=== PATIENT | male | born 1950 | race Caucasian/White ===

== ENCOUNTER 2018-02-19 19:05 | Inpatient (IN) | payer MEDICARE, OTHER ==
[2018-02-19] MEDS ORDERED: NITROGLYCERIN OINT 1 INCH/GM PACKET TOPICAL STA (19:24)
[2018-02-19] MEDS ORDERED: ASPIRIN 81 MG PO STA (19:24)
--- NOTE | 2018-02-19 19:26 | ED ---
General Adult HPI - General Chief complaint: Chest Pain Stated complaint: chest pressure Time Seen by Provider: 02/19/18 19:17 Source: patient, RN notes reviewed Mode of arrival: wheelchair Limitations: no limitations - History of Present Illness Initial comments: Patient is a pleasant 67-year-old male presenting to the emergency department with complaints of chest pressure. Onset of symptoms was less than an hour prior to arrival. Symptoms have now near resolved. Discomfort described as pressure. Patient had some nausea in route to the hospital. No dyspnea or diaphoresis. No history of similar symptoms previously. Patient did have radiation to the left arm. - Related Data Home Medications Medication Instructions Recorded Confirmed Escitalopram [Lexapro] 20 mg PO DAILY 11/21/15 12/04/15 Fenofibrate 1 tab PO DAILY 11/21/15 12/04/15 Valsartan/Hydrochlorothiazide 1 tab PO DAILY 11/21/15 12/04/15 [Valsartan-Hctz 320-12.5 mg Tab] metFORMIN HCL [Glucophage] 500 mg PO BID 11/21/15 12/04/15 HYDROcodone/APAP 7.5-325MG [[place] 1 tab PO Q4H PRN 12/04/15 12/04/15 7.5] Previous Rx's Medication Instructions Recorded HYDROcodone/APAP 7.5-325MG [[place] 1 tab PO Q6HR PRN #20 tab 12/04/15 7.5-325] Allergies Allergy/AdvReac Type Severity Reaction Status Date / Time No Known Allergies Allergy Verified 02/19/18 19:08 Review of Systems ROS Statement: Those systems with pertinent positive or pertinent negative responses have been documented in the HPI. ROS Other: All systems not noted in ROS Statement are negative. Constitutional: Denies: fever Eyes: Denies: eye pain ENT: Denies: ear pain Respiratory: Denies: cough, dyspnea Cardiovascular: Reports: chest pain Endocrine: Denies: fatigue Gastrointestinal: Reports: nausea. Denies: abdominal pain Genitourinary: Denies: dysuria Musculoskeletal: Denies: back pain Skin: Denies: rash Neurological: Denies: weakness Past Medical History Past Medical History: Diabetes Mellitus, Hypertension Additional Past Medical History / Comment(s): PILONIDAL CYST History of Any Multi-Drug Resistant Organisms: None Reported Past Surgical History: Cholecystectomy Past Anesthesia/Blood Transfusion Reactions: No Reported Reaction, Motion Sickness Additional Past Anesthesia/Blood Transfusion Reaction / Comment(s): PT RECEIVED MULTIPLE BLOOD TRANSFUSIONS AN INFANT. Past Psychological History: No Psychological Hx Reported, Depression Smoking Status: Former smoker Past Alcohol Use History: Rare Past Drug Use History: None Reported - Past Family History Mother Family Medical History: No Reported History General Exam Limitations: no limitations General appearance: alert, in no apparent distress Head exam: Present: atraumatic Eye exam: Present: normal appearance, PERRL ENT exam: Present: normal oropharynx Neck exam: Present: normal inspection Respiratory exam: Present: normal lung sounds bilaterally. Absent: chest wall tenderness Cardiovascular Exam: Present: regular rate, normal rhythm Expanded Peripheral pulses: 2+: Radial (R), Radial (L), Posterior Tibialis (R), Posterior Tibialis (L) GI/Abdominal exam: Present: soft. Absent: tenderness Extremities exam: Present: normal inspection. Absent: pedal edema, calf tenderness Neurological exam: Present: alert Psychiatric exam: Present: normal affect, normal mood Skin exam: Present: normal color Course Vital Signs 02/19/18 02/19/18 02/19/18 19:08 19:32 20:22 Temperature 98.3 F Pulse Rate 71 36 L Pulse Rate [ 73 [employer] ] Respiratory 18 18 Rate Blood Pressure 161/105 173/81 O2 Sat by Pulse 98 98 Oximetry 02/19/18 20:52 Temperature Pulse Rate 37 L Pulse Rate [ [employer] ] Respiratory 18 Rate Blood Pressure 157/83 O2 Sat by Pulse 97 Oximetry EKG Findings - EKG Comments: EKG Findings:: Sinus rhythm at 64. For screening AV block with a [place] of 232. QRS 108. QT 416. QTC 429. Left axis. Normal QRS. No acute ST change Medical Decision Making - Medical Decision Making Patient reevaluated and resting comfortably in bed. Patient and family updated on results and plan. Dr. Pedro has been paged for admission for Dr. Archer. - Lab Data Result diagrams: 02/19/18 19:28 02/19/18 19:28 Lab Results 02/19/18 02/19/18 02/19/18 Range/Units 19:28 19:28 19:28 WBC 8.5 (3.8-10.6) k/uL RBC 5.19 (4.30-5.90) m/uL Hgb 15.4 (13.0-17.5) gm/dL Hct 46.7 (39.0-53.0) % MCV 90.1 (80.0-100.0) fL MCH 29.6 (25.0-35.0) pg MCHC 32.9 (31.0-37.0) g/dL RDW 14.2 (11.5-15.5) % Plt Count 287 (150-450) k/uL Neutrophils % 61 % Lymphocytes % 20 % Monocytes % 10 % Eosinophils % 5 % Basophils % 1 % Neutrophils # 5.2 (1.3-7.7) k/uL Lymphocytes # 1.7 (1.0-4.8) k/uL Monocytes # 0.8 (0-1.0) k/uL Eosinophils # 0.5 (0-0.7) k/uL Basophils # 0.1 (0-0.2) k/uL PT (9.0-12.0) sec INR (<1.2) APTT (22.0-30.0) sec Sodium 140 (137-145) mmol/L Potassium 4.3 (3.5-5.1) mmol/L Chloride 108 H (98-107) mmol/L Carbon Dioxide 23 (22-30) mmol/L Anion Gap 9 mmol/L BUN 20 (9-20) mg/dL Creatinine 1.10 (0.66-1.25) mg/dL Est GFR (CKD-EPI)AfAm 79 (>60 ml/min/1.73 sqM) Est GFR (CKD-EPI)NonAf 69 (>60 ml/min/1.73 sqM) Glucose 136 H (74-99) mg/dL Calcium 9.1 (8.4-10.2) mg/dL Magnesium 2.0 (1.6-2.3) mg/dL Total Bilirubin 0.4 (0.2-1.3) mg/dL AST 19 (17-59) U/L ALT 27 (21-72) U/L Alkaline Phosphatase 89 (38-126) U/L Total Creatine Kinase 76 (55-170) U/L CK-MB (CK-2) 0.9 (0.0-2.4) ng/mL CK-MB (CK-2) Rel Index 1.2 Troponin I <0.012 (0.000-0.034) ng/mL Total Protein 7.0 (6.3-8.2) g/dL Albumin 4.2 (3.5-5.0) g/dL 02/19/18 Range/Units 19:28 WBC (3.8-10.6) k/uL RBC (4.30-5.90) m/uL Hgb (13.0-17.5) gm/dL Hct (39.0-53.0) % MCV (80.0-100.0) fL MCH (25.0-35.0) pg MCHC (31.0-37.0) g/dL RDW (11.5-15.5) % Plt Count (150-450) k/uL Neutrophils % % Lymphocytes % % Monocytes % % Eosinophils % % Basophils % % Neutrophils # (1.3-7.7) k/uL Lymphocytes # (1.0-4.8) k/uL Monocytes # (0-1.0) k/uL Eosinophils # (0-0.7) k/uL Basophils # (0-0.2) k/uL PT 9.8 (9.0-12.0) sec INR 1.0 (<1.2) APTT 22.7 (22.0-30.0) sec Sodium (137-145) mmol/L Potassium (3.5-5.1) mmol/L Chloride (98-107) mmol/L Carbon Dioxide (22-30) mmol/L Anion Gap mmol/L BUN (9-20) mg/dL Creatinine (0.66-1.25) mg/dL Est GFR (CKD-EPI)AfAm (>60 ml/min/1.73 sqM) Est GFR (CKD-EPI)NonAf (>60 ml/min/1.73 sqM) Glucose (74-99) mg/dL Calcium (8.4-10.2) mg/dL Magnesium (1.6-2.3) mg/dL Total Bilirubin (0.2-1.3) mg/dL AST (17-59) U/L ALT (21-72) U/L Alkaline Phosphatase (38-126) U/L Total Creatine Kinase (55-170) U/L CK-MB (CK-2) (0.0-2.4) ng/mL CK-MB (CK-2) Rel Index Troponin I (0.000-0.034) ng/mL Total Protein (6.3-8.2) g/dL Albumin (3.5-5.0) g/dL - Radiology Data Radiology results: image reviewed (Chest x-ray shows no acute process.) Disposition Clinical Impression: Chest pain Disposition: ADMITTED IP TO THIS [facility] Referrals: Alex Archer DO [Primary Care Provider] - 1-2 days Decision Time: 21:51
[2018-02-19 19:55] LABS: Basophils # (A) 0.1 k/uL (0-0.2); Basophils % (A) 1 %; Eosinophils # (A) 0.5 k/uL (0-0.7); Eosinophils % (A) 5 %; HCT 46.7 % (39.0-53.0); HGB 15.4 gm/dL (13.0-17.5); Lymphocytes # (A) 1.7 k/uL (1.0-4.8); Lymphocytes % (A) 20 %; MCH 29.6 pg (25.0-35.0); MCHC 32.9 g/dL (31.0-37.0); MCV 90.1 fL (80.0-100.0); Mean Platelet Volume 7.2; Monocytes # (A) 0.8 k/uL (0-1.0); Monocytes % (A) 10 %; Neutrophils # (A) 5.2 k/uL (1.3-7.7); Neutrophils % (A) 61 %; Platelet Count 287 k/uL (150-450); RBC 5.19 m/uL (4.30-5.90); RDW 14.2 % (11.5-15.5); WBC 8.5 k/uL (3.8-10.6)
[2018-02-19 20:04] LABS: Partial Thromboplastin Time 22.7 sec (22.0-30.0); Prothrombin Time 9.8 sec (9.0-12.0)
[2018-02-19 20:08] LABS: Albumin 4.2 g/dL (3.5-5.0); Calcium 9.1 mg/dL (8.4-10.2); Creatine Kinase 76 U/L (55-170); Potassium 4.3 mmol/L (3.5-5.1); Total Bilirubin 0.4 mg/dL (0.2-1.3)
[2018-02-19 20:20] LABS: Creatine Kinase MB 0.9 ng/mL (0.0-2.4); Troponin I <0.012 ng/mL (0.000-0.034)
--- NOTE | 2018-02-19 20:27 | XR ---
EXAMINATION TYPE: XR chest 2V DATE OF EXAM: 02/19/2018 COMPARISON: NONE HISTORY: Chest pressure and hypertension TECHNIQUE: Frontal and lateral views of the chest are obtained. FINDINGS: There is no focal air space opacity, pleural effusion, or pneumothorax seen. Calcified lef t hilar lymph nodes. Scattered small calcified pulmonary nodules are seen bilaterally likely sequela of prior granulomatous disease. The cardiac silhouette size is within normal limits. The osseous st ructures are intact. IMPRESSION: No acute cardiopulmonary process.
[2018-02-19] MEDS ORDERED: NITROGLYCERIN SL TABS 0.4 MG TAB SUBLINGUAL PRN (21:52)
[2018-02-20] MEDS: NITROGLYCERIN OINT 1 INCH/GM PACKET TOPICAL SCH ×2 (00:14→06:46)
[2018-02-20 03:01] LABS: Troponin I 0.592 ng/mL (0.000-0.034)
[2018-02-20] MEDS ORDERED: HEPARIN SODIUM,PORCINE 5,000 UNIT/ML 1 ML VIAL IV STA (03:35)
[2018-02-20] MEDS ORDERED: HEPARIN SOD,PORK IN 0.45% NACL 25,000 UNIT in 0.45% NACL 1 500ML.BAG IV SCH (04:00)
[2018-02-20] MEDS: SODIUM CHLORIDE 0.9% 1,000 ML IV SCH ×2 (04:04→20:15)
[2018-02-20] MEDS ORDERED: ACETAMINOPHEN TAB 325 MG TAB PO STA (04:07)
[2018-02-20] MEDS ORDERED: ALPRAZolam 0.25 MG TAB PO PRN (07:06)
[2018-02-20] MEDS ORDERED: ALPRAZolam 0.5 MG TAB PO PRN (07:06)
[2018-02-20] MEDS ORDERED: NITROGLYCERIN SL TABS 0.4 MG TAB SUBLINGUAL PRN ×2 (07:06→08:58)
[2018-02-20] MEDS ORDERED: SODIUM CHLORIDE 0.9% 1,000 ML in EMPTY BAG 1 BAG IV ONE (07:06)
[2018-02-20] MEDS ORDERED: ATORVASTATIN 80 MG TAB PO STA (07:12)
[2018-02-20] MEDS ORDERED: ASPIRIN 81 MG PO STA (07:12)
--- NOTE | 2018-02-20 07:28 | CONS ---
CONSULTATION Mr. Guevara is a 67-year-old male with known history of diabetes, hypertension who presented to the emergency room with symptoms of chest discomfort. The discomfort occurred yesterday and lasted for about 2 hours until he came into the emergency room. It started at rest. It had no associated radiation. He came into the emergency room and at the time of my evaluation he is pain free. He is average in his exercise tolerance, has no exertional chest pain. Denies any symptoms of dizziness, palpitation. No PND. No orthopnea. No peripheral edema. He has no prior documented history of coronary artery disease except for history of arrhythmia. He has underwent a stress testing in [place], [place] about 8 years ago that were unremarkable according to him. His coronary risk factors are remarkable for history of diabetes, hypertension, prior history of smoking, questionable history of premature coronary artery disease in his mother. His lipid profile is not available. MEDICATIONS: His medications include metformin 500 mg twice a day, valsartan HCTZ 320/12.5 mg daily, Lexapro 20 mg daily and aspirin once a day. REVIEW OF SYSTEMS: RESPIRATORY SYSTEM: He has no documented history of asthma, emphysema or bronchitis. GI SYSTEM: No recent GI bleeding. No peptic ulcer disease. SYSTEM: No dysuria or hematuria. NERVOUS SYSTEM: No stroke or seizure. PHYSICAL EXAMINATION: A 67-year-old male, alert, oriented, in no apparent distress. Blood pressure 140/80 with the heart rate in the 60s. HEAD: Normocephalic. EYES: Sclerae anicteric. NECK: Good carotid upstroke. No bruit. No jugular venous distention. LUNGS: Clear to auscultation. HEART: Regular rate and rhythm. S1, S2. No S3. No rub. ABDOMEN: Soft, nontender. Positive bowel sounds. No organomegaly. EXTREMITIES: No edema. Intact distal pulses. LAB DATA: Lab data revealed a BUN and creatinine of 20 and 1.1. Troponin less than 0.012 and 0.592. Hemoglobin of 15.4, white blood cell of 8.5. Chest x-ray shows no acute infiltrate. EKG reveals sinus mechanism, left axis deviation, first-degree AV block. Second EKG revealed a flattening and beginning of biphasic T-waves anteriorly. IMPRESSION: 1. Symptoms of chest discomfort with EKG and enzymatic changes consistent with non ST- segment elevation myocardial infarction probably in the LAD territory. 2. Hypertension. 3. Diabetes mellitus. RECOMMENDATION: I have recommended proceeding with coronary angiography to further assess his status and guide his treatment. The rationale behind the procedure as well as the risks and complication were discussed with the patient who is in full understanding and agreement. In the meantime, we will obtain echocardiogram with Doppler and depending on the results of testing, further recommendation will be made. Thank you for this consult. We will follow with you. MMODL / IJN: [id number] /
[2018-02-20] MEDS ORDERED: VERAPAMIL 2.5 MG/ML 2 ML AMP ONE (07:35)
[2018-02-20] MEDS ORDERED: LIDOCAINE 1% INJ 10MG/ML (20 ML MDV) ONE (07:35)
[2018-02-20] MEDS ORDERED: fentaNYL (PF) 50 MCG/ML 2 ML AMP ONE (07:36)
[2018-02-20] MEDS ORDERED: diphenhydrAMINE 50 MG/ML 1 ML VIAL ONE (07:36)
[2018-02-20] MEDS ORDERED: HEPARIN SODIUM 1,000 UN/ML (10ML VL) ONE (07:36)
[2018-02-20] MEDS ORDERED: IV FLUID CONTINUATION 1,000 ML IV ONE (07:49)
[2018-02-20] MEDS ORDERED: fentaNYL (PF) 50 MCG/ML 2 ML AMP IVP ONE (07:58)
[2018-02-20] MEDS ORDERED: diphenhydrAMINE 50 MG/ML 1 ML VIAL IVP ONE (07:59)
[2018-02-20] MEDS ORDERED: LIDOCAINE 1% INJ 10MG/ML (20 ML MDV) SQ ONE ×2 (08:00→08:02)
[2018-02-20] MEDS ORDERED: VERAPAMIL SYRINGE (5 MG/10 ML) INTRAARTER ONE (08:05)
[2018-02-20] MEDS ORDERED: PRASUGREL 10 MG TAB ONE ×2 (08:12→08:18)
[2018-02-20] MEDS ORDERED: BIVALIRUDIN BOLUS 250 MG/50 ML IV ONE (08:20)
[2018-02-20] MEDS ORDERED: BIVALIRUDIN 250 MG in SODIUM CHLORIDE 0.9% 50 ML IV ONE (08:21)
[2018-02-20] MEDS ORDERED: IOPAMIDOL-370 125ML BTL INJ ONE (08:23)
[2018-02-20] MEDS ORDERED: PRASUGREL 10 MG TAB PO ONE (08:23)
[2018-02-20] MEDS ORDERED: IOPAMIDOL-370 100ML BTL INJ ONE (08:40)
[2018-02-20] MEDS ORDERED: ATROPINE SULFATE 0.1 MG/ML 10ML SYRINGE IV PRN (08:58)
[2018-02-20] MEDS ORDERED: MAG HYDROX/AL HYDROX/SIMETH 30 ML CUP PO PRN (08:58)
[2018-02-20] MEDS ORDERED: RX INFO: IV CONTRAST WAS GIVEN 1 EACH MISC MISCELLANE PRN (08:58)
[2018-02-20] MEDS ORDERED: ASPIRIN 325 MG TAB PO SCH (09:00)
[2018-02-20] MEDS ORDERED: HYDROCHLOROTHIAZIDE 12.5 MG CAP PO SCH (09:00)
[2018-02-20] MEDS ORDERED: SODIUM CHLORIDE 0.9% 1,000 ML IV SCH (09:00)
--- NOTE | 2018-02-20 09:16 | CC ---
CARDIAC CATHETERIZATION REPORT Mr. Guevara is a 67-year-old male with a history of hypertension, diabetes mellitus, who presented with symptoms of chest discomfort and had evidence consistent with non ST- segment elevation myocardial infarction in the LAD territory. In view of that, recommendation was made regarding cardiac catheterization. The procedure as well as the risks and the complications were discussed with the patient who is in full understanding and agreement. PROCEDURE: Patient was brought to orthodontic lab technician in a fasting semi-sedated state after receiving fentanyl and Benadryl and achieving moderate conscious sedated state. Using Xylocaine anesthesia in the Seldinger technique a 6-Cambodian sheath was introduced in the right radial artery. Selective right and left angiography were performed using 5-Cambodian 3,5 bend right Mohini catheter and a 6-Cambodian FL 3.5 guiding catheter. After obtaining images of the coronary arteries including hemiaxial views and performing angioplasty and stenting of the LAD, 5-Cambodian tight pigtail catheter was introduced in the left ventricle and a 30-degree BLAKELY view of the left ventricle was obtained. Following that, catheter and sheaths were removed. Hemostasis was obtained with deployment of a TR band. There was no immediate complication. Patient was returned to his room in stable condition. FINDINGS: LEFT MAIN: This is a large-sized vessel trifurcating in left circumflex, left anterior descending artery and ramus intermedius. Left main coronary artery has no evidence of high-grade stenosis. LEFT ANTERIOR DESCENDING ARTERY: This is a large-sized vessel reaching toward the apex with a wraparound apex segment giving rise to small diagonal branch. Left anterior descending artery proximally has a 99% stenosis. The rest of the vessel has no high- grade stenosis. LEFT CIRCUMFLEX: This is a nondominant vessel, large in caliber giving rise to a large obtuse marginal branch. The left circumflex and its branches have no evidence of obstructive coronary artery disease. RAMUS INTERMEDIUS: This is a large-sized vessel reaching toward the apical lateral wall and has no evidence of high-grade stenosis. RIGHT CORONARY ARTERY: This is a large dominant vessel bifurcating PDA posterolateral segment and branches. The right coronary artery as well as branches have no evidence of obstructive coronary artery disease. LEFT VENTRICULOGRAM: Left ventriculogram was performed in 30-degree BLAKELY view and revealed anteroapical severe hypokinesis. The estimated ejection fraction 45%. There was no significant mitral regurgitation. HEMODYNAMICS: There was no gradient across the aortic valve. The left ventricular end- diastolic pressure was 24 to 28 mmHg. CONCLUSION: 1. Critical stenosis in the proximal left anterior descending artery. 2. Moderately impaired left ventricular systolic function. RECOMMENDATION: In view of finding anatomy, I recommend proceeding with angioplasty and stenting of the LAD. The procedure as well as the risks and the complications were discussed with the patient who is in full understanding and agreement. MMODL / IJN: [id number] /
--- NOTE | 2018-02-20 09:22 | PTCA ---
PERCUTANEOUSTRANS CORORONARY ANGIOGRAPHY Mr. Guevara is a 67-year-old male with known history of diabetes mellitus and hypertension, who presented with evidence of non-STEMI, underwent cardiac catheterization, was found to have critical stenosis involving the proximal LAD. In view of that, recommendation was made regarding angioplasty and stenting. The procedure as well as the risks and the complications were discussed with the patient who is in full understanding and agreement. PROCEDURE: Using the 6-Ukrainian FL 3.5 guiding catheter and after cannulating the left main, a 0.014 balanced medium weight J-wire was advanced across the lesion, positioned distally. Then a 3.0 x 15 mm Trek balloon was advanced 1 inflation, 10 atmospheres was done. Following that the balloon was removed and a 4.0 x 18 mm Xience Alpine stent was deployed postdilated at 16 atmospheres. Following that, the balloon was removed and a 4.5 x 15 mm NC Euphora balloon was advanced and one inflation at 14 atmospheres was done. After the last inflation, after appropriate wait the balloon and the guidewire were withdrawn back in the guiding catheter. Images were obtained, repeated. Those images reveal stable successful stenting. At that point, the guiding catheter, the balloon and the guidewire were removed. Images were obtained and repeated and revealed stable successful stenting. Following that, left ventriculogram was performed. Following that, catheter and sheaths were removed. Hemostasis was obtained with deployment of a TR band. There was no immediate complication. Patient is returned to his room in stable condition. Of note, the patient received Angiomax per protocol as well as oral loading dose of Effient. He had chest discomfort and EKG changes with the inflation that resolved at the end of procedure. He received intra-arterial verapamil at the start of the procedure. RESULTS: Successful stenting of the proximal LAD with reduction of stenosis from 99% to less than 5%. RECOMMENDATION: The patient will be continued on aspirin, Effient, beta alec, angiotensin receptor alec and statin. The importance of dual antiplatelet treatment were discussed with the patient his family and are in full understanding and agreement. Duration of procedure is 45 minutes. MMODL / IJN: [id number] /
--- NOTE | 2018-02-20 09:28 | LTR ---
February 20, 2018 Re: Jb Guevara Dear Dr. Archer: I had the opportunity to perform coronary angiography and angioplasty and stenting on Mr. Guevara at [facility] on the 20 of February and a full copy of the procedure note will be forwarded to you. In brief, he was found to have a critical stenosis involving the proximal LAD and underwent successful stenting of that vessel using a drug-eluting stent. I am hopeful that this procedure will stabilize his status. Thank you again for allowing me the opportunity to participate in his care. Please feel free to call for any questions. Sincerely yours, MD SANDRA RojasL / KALEIGHN: [id number] /
[2018-02-20 10:23] LABS: Cholesterol 196 mg/dL (<200); HDL Cholesterol 41 mg/dL (40-60); LDL Cholesterol,Calculated 92 mg/dL (0-99); Triglycerides 317 mg/dL (<150)
[2018-02-20 10:40] VITALS: BMI 34.4
[2018-02-20 10:44] LABS: Creatine Kinase MB 2.9 ng/mL (0.0-2.4); Troponin I 0.516 ng/mL (0.000-0.034)
[2018-02-20 11:40] LABS: Glucose,Whole Blood 128 mg/dL (75-99)
[2018-02-20] MEDS: SPIRONOLACTONE 25 MG TAB PO SCH (11:58)
[2018-02-20] MEDS: CARVEDILOL 3.125 MG TAB PO SCH ×2 (11:58→16:33)
[2018-02-20] MEDS: VALSARTAN 160 MG TAB PO SCH (11:59)
--- NOTE | 2018-02-20 16:23 | ECHOF ---
Referral Reason:cad MEASUREMENTS -------- HEIGHT: 188.0 cm WEIGHT: 129.3 kg BP: IVSd: 1.2 cm (0.6 - 1.1) LVIDd: 5.0 cm (3.9 - 5.3) LVPWd: 0.9 cm (0.6 - 1.1) IVSs: 1.3 cm LVIDs: 3.9 cm LVPWs: 1.1 cm LA Diam: 3.8 cm (2.7 - 3.8) LAESV Index (A-L): 36.91 ml/m Ao Diam: 3.5 cm (2.0 - 3.7) AV Cusp: 2.3 cm (1.5 - 2.6) LA Diam: 4.0 cm (2.7 - 3.8) MV EXCURSION: 15.488 mm (> 18.000) MV EF SLOPE: 73 mm/s (70 - 150) EPSS: 0.7 cm MV E Arvind: 0.43 m/s MV DecT: 173 ms MV A Arvind: 0.49 m/s MV E/A Ratio: 0.86 RAP: 5.00 mmHg RVSP: 27.06 mmHg FINDINGS -------- Sinus rhythm. Morbid Obesity The left ventricular size is normal. There is mild concentric left ventricular hypertrophy. Overa ll left ventricular systolic function is moderate-severely impaired with, an EF between 30 - 35 %. Apical septum LV wall motion is hypokinetic. Anterseptal Hypokinesis Septal Hypokinesis [place] H ypokinesis. The right ventricle is normal in size. The left atrial size is normal. LA is moderately dilated 34-39 ml/m2 The right atrial size is normal. 5.0mg OF Lum[place] UTLIZED: 2 OR MORE WALL SEGMENTS NOT VISUALIZED. The aortic valve is trileaflet, and appears structurally normal. No aortic stenosis or regurgitation. Mild mitral annular calcification present. Mild mitral regurgitation is present. Mild tricuspid regurgitation present. There is no evidence of pulmonary hypertension. The right v entricular systolic pressure, as measured by Doppler, is 27.06mmHg. There is no pulmonic regurgitation present. The aortic root size is normal. There is no pericardial effusion. CONCLUSIONS -------- 1. The left ventricular size is normal. 2. There is mild concentric left ventricular hypertrophy. 3. Overall left ventricular systolic function is moderate-severely impaired with, an EF between 30 - 35 %. 4. Apical septum LV wall motion is hypokinetic. 5. Anterseptal Hypokinesis 6. Septal Hypokinesis 7. [place] Hypokinesis. 8. The right ventricle is normal in size. 9. The left atrial size is normal. 10. LA is moderately dilated 34-39 ml/m2 11. The right atrial size is normal. 12. 5.0mg OF Lumason UTLIZED: 2 OR MORE WALL SEGMENTS NOT VISUALIZED. 13. The aortic valve is trileaflet, and appears structurally normal. No aortic stenosis or regurgitat ion. 14. Mild mitral annular calcification present. 15. Mild mitral regurgitation is present. 16. Mild tricuspid regurgitation present. 17. There is no evidence of pulmonary hypertension. 18. The right ventricular systolic pressure, as measured by Doppler, is 27.06mmHg. 19. There is no pulmonic regurgitation present. 20. The aortic root size is normal. 21. There is no pericardial effusion. WATER POLLUTION SCIENTIST: Hue Swann RDCS
[2018-02-20 16:35] LABS: Glucose,Whole Blood 117 mg/dL (75-99)
[2018-02-20 21:28] LABS: Glucose,Whole Blood 118 mg/dL (75-99)
[2018-02-20] MEDS: ZOLPIDEM 5 MG TAB PO PRN (22:44)
[2018-02-21 05:34] LABS: Glucose,Whole Blood 167 mg/dL (75-99)
[2018-02-21 06:40] LABS: Basophils # (A) 0.1 k/uL (0-0.2); Basophils % (A) 1 %; Eosinophils # (A) 0.3 k/uL (0-0.7); Eosinophils % (A) 4 %; HGB 14.3 gm/dL (13.0-17.5); Lymphocytes # (A) 1.1 k/uL (1.0-4.8); Lymphocytes % (A) 12 %; MCH 29.2 pg (25.0-35.0); MCHC 32.5 g/dL (31.0-37.0); MCV 89.7 fL (80.0-100.0); Mean Platelet Volume 7.5; Monocytes # (A) 0.6 k/uL (0-1.0); Monocytes % (A) 6 %; Neutrophils # (A) 6.6 k/uL (1.3-7.7); Neutrophils % (A) 74 %; Platelet Count 246 k/uL (150-450); RDW 13.8 % (11.5-15.5); WBC 8.9 k/uL (3.8-10.6)
[2018-02-21 06:43] LABS: Calcium 8.7 mg/dL (8.4-10.2); Magnesium 1.8 mg/dL (1.6-2.3); Potassium 4.6 mmol/L (3.5-5.1)
[2018-02-21] MEDS: CARVEDILOL 3.125 MG TAB PO SCH (06:43)
[2018-02-21] MEDS: INSULIN ASPART 100 UNIT/ML 1 ML 10 ML VIAL SQ SCH ×4 (07:53→20:56)
[2018-02-21] MEDS ORDERED: ASPIRIN 325 MG TAB PO SCH (09:00)
[2018-02-21] MEDS: SODIUM CHLORIDE 0.9% 1,000 ML IV SCH ×2 (09:45→20:56)
[2018-02-21] MEDS: PRASUGREL 10 MG TAB PO SCH (09:45)
[2018-02-21] MEDS: ASPIRIN 81 MG PO SCH (09:45)
[2018-02-21] MEDS: ATORVASTATIN 80 MG TAB PO SCH (09:45)
[2018-02-21] MEDS: VALSARTAN 160 MG TAB PO SCH (09:45)
[2018-02-21] MEDS: SPIRONOLACTONE 25 MG TAB PO SCH (09:45)
--- NOTE | 2018-02-21 11:29 | PN ---
PROGRESS NOTE Mr. Guevara is a 67-year-old male who presented with a non-STEMI myocardial infarction involving the LAD, underwent stenting of that vessel. He is doing well this morning ambulating without difficulty. Denying any chest pain. No dizziness. No palpitation. Continued on aspirin once a day, Lipitor 80 mg daily, Coreg 3.125 mg daily, Effient 10 mg daily, spironolactone 25 mg daily, valsartan 320 mg daily. PHYSICAL EXAMINATION: Blood pressure running in the 130s to 150s with a heart rate in the 70s. LUNGS: Clear. HEART: Regular rate and rhythm. S1, S2. No S3. No rub. ABDOMEN: Soft, nontender. EXTREMITIES: No edema, right radial pulse intact. LAB DATA: Revealed BUN and creatinine 15 and 1.1, hemoglobin of 14.3. EKG revealed sinus mechanism with T-wave inversion anteriorly consistent with anterior wall event. Echocardiogram sohwed ejection fraction of 30% to 35%. IMPRESSION: 1. Status post non-STEMI myocardial infarction involving the left anterior descending territory, status post stenting. 2. Ischemic cardiomyopathy. Hopefully, we have a lot of stunt myocardium in view of the quick perfusion of the vessel and the absence of QS pattern. 3. History of hypertension. 4. Hyperlipidemia. RECOMMENDATION: Will continue on the present therapy except increasing the dose of his Coreg. Increase the level of activity. Follow his renal function and depending on his progress, probably discharge home in the next 24 to 48 hours. MMODL / IJN: [id number] / MTDD
[2018-02-21 11:32] LABS: Glucose,Whole Blood 121 mg/dL (75-99)
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
[2018-02-21 16:10] LABS: Glucose,Whole Blood 134 mg/dL (75-99)
[2018-02-21] MEDS: CARVEDILOL 6.25 MG TAB PO SCH (17:15)
[2018-02-21 20:55] LABS: Glucose,Whole Blood 136 mg/dL (75-99)
[2018-02-21] MEDS: ZOLPIDEM 5 MG TAB PO PRN (21:58)
[2018-02-21 23:22] VITALS: RESP 18
[2018-02-22 05:58] LABS: Glucose,Whole Blood 149 mg/dL (75-99)
[2018-02-22] MEDS: CARVEDILOL 6.25 MG TAB PO SCH (06:34)
[2018-02-22] MEDS: INSULIN ASPART 100 UNIT/ML 1 ML 10 ML VIAL SQ SCH (06:34)
[2018-02-22 06:58] LABS: Calcium 8.7 mg/dL (8.4-10.2); Potassium 4.4 mmol/L (3.5-5.1)
[2018-02-22] MEDS: ASPIRIN 81 MG PO SCH (08:02)
[2018-02-22] MEDS: PRASUGREL 10 MG TAB PO SCH (08:02)
[2018-02-22] MEDS: VALSARTAN 160 MG TAB PO SCH (08:02)
[2018-02-22] MEDS: SPIRONOLACTONE 25 MG TAB PO SCH (08:02)
[2018-02-22] MEDS: ATORVASTATIN 80 MG TAB PO SCH (08:02)
[2018-02-22 10:52] VITALS: BP 138/79; PULSE 72; TEMP 97
--- NOTE | 2018-02-22 11:21 | P.DS ---
Providers Date of admission: 02/19/18 21:52 Expected date of discharge: 02/22/18 Attending physician: Alex Archer Consults: 02/19/18 21:52 Consult Physician Urgent Consulting Provider: Liv Dela Cruz Consult Reason/Comments: cp Do you want consulting provider notified?: Yes 02/20/18 08:58 Consult Physician Routine Consulting Provider: [facility] Consult Reason/Comments: Post Interventional patient Do you want consulting provider notified?: Already Contacted Primary care physician: Alex Archer [facility] [facility] Course: 67-year-old presented to the emergency room with a chief complaint of chest pain. The patient has a history of hypertension and diabetes. The patient was evaluated by cardiology. He was taken to the [facility] and underwent a cardiac catheterization. The patient was found to have 99% stenosis of the LAD and underwent stenting. Ejection fraction was estimated to be around 45%. The patient was started on aspirin 81 mg daily, Coreg 12.5 mg by mouth twice a day, Lipitor 80 mg daily, Effient 10 mg daily and Aldactone 25 mg daily per cardiology. He also takes Diovan 320 mg daily. The patient has been stable since his cardiac catheterization. He denies any further episodes of chest pain. He denies shortness of breath. He remains hemodynamically stable and was deemed stable for discharge per Dr. Archer and cardiology. DISCHARGE DIAGNOSIS: non-STEMI, s/p cardiac catheterization with stent placement to the LAD Diabetes mellitus, type II Hypertension Depression, unspecified Nicotine dependence, in remission, patient quit smoking 2 years ago Obesity: BMI 35.5 Nurse practitioner note has been reviewed by physician. Signing provider agrees with the documented findings, assessment, and plan of care. Patient Condition at Discharge: Stable Plan - Discharge Summary Discharge Rx Participant: No New Discharge Prescriptions: New Nitroglycerin Sl Tabs [Nitrostat] 0.4 mg SUBLINGUAL Q5M PRN #30 tab PRN Reason: Chest Pain Prasugrel [Effient] 10 mg PO DAILY #30 tab Spironolactone [Aldactone] 25 mg PO DAILY #30 tab Valsartan [Diovan] 320 mg PO DAILY #60 tab Carvedilol [Coreg*] 12.5 mg PO BID-W/MEALS #60 tab Continue Escitalopram [Lexapro] 20 mg PO DAILY Aspirin 81 mg PO DAILY metFORMIN HCL [Glucophage] 1 tab PO BID Discontinued Valsartan/Hydrochlorothiazide [Valsartan-Hctz 320-12.5 mg Tab] 1 tab PO DAILY Atorvastatin [Lipitor] 10 mg PO HS Discharge Medication List Escitalopram [Lexapro] 20 mg PO DAILY 11/21/15 [History] Aspirin 81 mg PO DAILY 02/20/18 [History] metFORMIN HCL [Glucophage] 1 tab PO BID 02/20/18 [History] Nitroglycerin Sl Tabs [Nitrostat] 0.4 mg SUBLINGUAL Q5M PRN #30 tab 02/21/18 [Rx ] Prasugrel [Effient] 10 mg PO DAILY #30 tab 02/21/18 [Rx] Spironolactone [Aldactone] 25 mg PO DAILY #30 tab 02/21/18 [Rx] Valsartan [Diovan] 320 mg PO DAILY #60 tab 02/21/18 [Rx] Carvedilol [Coreg*] 12.5 mg PO BID-W/MEALS #60 tab 02/22/18 [Rx] Follow up Appointment(s)/Referral(s): Liv Dela Cruz MD [STAFF PHYSICIAN] - 02/27/18 2:30 pm Alex Archer DO [Primary Care Provider] - 02/28/18 1:00 pm (Tuesday) Patient Instructions/Handouts: Left Heart Catheterization (DC), Heart Healthy Diet (DC), Safe Use of Antiplatelet Medication (DC), Coronary Intravascular Stent Placement (DC), After Radial Heart Catheterization (GEN) Discharge Disposition: HOME SELF-CARE
--- NOTE | 2018-02-22 11:24 | PN ---
PROGRESS NOTE Mr. Guevara is a 67-year-old male with no prior documentation for ischemic heart disease, who presented with an acute myocardial infarction involving the LAD territory, underwent stenting of the LAD. He is doing well this morning, ambulating without difficulty. Denying any chest pain. No dizziness. No palpitation. He denies any nausea and vomiting. No cough or fever. He continues to be at this time on aspirin once a day, Lipitor 80 mg daily, Coreg 6.5 mg twice a day, Effient 10 mg daily, spironolactone 25 mg daily, and valsartan 320 mg daily. PHYSICAL EXAMINATION: Blood pressure 138/70 with a heart rate in the 70s. LUNGS: Clear. HEART: Regular rate and rhythm. S1, S2. No S3. No rub. ABDOMEN: Soft, nontender. EXTREMITIES: No edema. LAB DATA: Revealed BUN and creatinine 16 and 1.09, potassium 4.4. IMPRESSION: 1. Status post non-STEMI with stenting of the LAD. 2. Ischemic cardiomyopathy. 3. Hypertension. RECOMMENDATION: Patient should be able to be discharged home today. I will increase the dose of his Coreg and he will be followed next week. MMODL / IJN: [id number] /
[2018-02-22] MEDS ORDERED: CARVEDILOL 12.5 MG TAB PO SCH (17:30)
== END 2018-02-22 11:44 | disposition home or self-care (01) | DRG 247 ==
LOC: EC 19:05 → 3OBS 21:52 → 6SEL 02-20 05:56 → OBSVTOIN 02-21 19:36
PROVIDERS: ADMIT Family Medicine; ATTEND Family Medicine
PROC: B2111ZZ Fluoroscopy of Multiple Coronary Arteries using Low Osmolar Contrast (ICD-10-PCS; 2018-02-20)
PROC: B2151ZZ Fluoroscopy of Left Heart using Low Osmolar Contrast (ICD-10-PCS; 2018-02-20)
PROC: 027034Z Dilation of Coronary Artery, One Artery with Drug-eluting Intraluminal Device, Percutaneous Approach (ICD-10-PCS; principal; 2018-02-20 07:25)
PROC: 4A023N7 Measurement of Cardiac Sampling and Pressure, Left Heart, Percutaneous Approach (ICD-10-PCS; 2018-02-20 07:25)
DX: I21.4 Non-ST elevation (NSTEMI) myocardial infarction (principal); E11.9 Type 2 diabetes mellitus without complications; E66.9 Obesity, unspecified; E78.5 Hyperlipidemia, unspecified; F32.9 Major depressive disorder, single episode, unspecified; I10 Essential (primary) hypertension; I25.10 Atherosclerotic heart disease of native coronary artery without angina pectoris; I25.5 Ischemic cardiomyopathy; Z68.35 Body mass index [BMI] 35.0-35.9, adult; Z79.899 Other long term (current) drug therapy; Z79.84 Long term (current) use of oral hypoglycemic drugs; Z87.891 Personal history of nicotine dependence; Z90.49 Acquired absence of other specified parts of digestive tract; Z82.49 Family history of ischemic heart disease and other diseases of the circulatory system; Z83.3 Family history of diabetes mellitus
CPT/HCPCS: 36415; 71046; 80048; 80053; 80061; 82550; 82553; 83735; 84484; 85025; 85610; 85730; 93005; 93306; 93458; 96365; 96366; 96376; 99285

== ENCOUNTER 2018-04-04 08:10 | Observation (INO) | payer MEDICARE, OTHER ==
[2018-04-04] MEDS ORDERED: SODIUM CHLORIDE 0.9% 500 ML IV STA (08:26)
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
[2018-04-04 08:53] LABS: INR 1.1 (<1.2); Prothrombin Time 10.6 sec (9.0-12.0)
[2018-04-04 08:56] LABS: Basophils # (A) 0.1 k/uL (0-0.2); Basophils % (A) 1 %; Eosinophils # (A) 0.5 k/uL (0-0.7); Eosinophils % (A) 6 %; HGB 15.6 gm/dL (13.0-17.5); Lymphocytes # (A) 1.1 k/uL (1.0-4.8); Lymphocytes % (A) 14 %; MCH 30.3 pg (25.0-35.0); MCHC 33.2 g/dL (31.0-37.0); MCV 91.5 fL (80.0-100.0); Magnesium 1.6 mg/dL (1.6-2.3); Mean Platelet Volume 7.1; Monocytes # (A) 0.6 k/uL (0-1.0); Monocytes % (A) 8 %; Neutrophils # (A) 5.8 k/uL (1.3-7.7); Neutrophils % (A) 70 %; Platelet Count 258 k/uL (150-450); Potassium 4.5 mmol/L (3.5-5.1); RBC 5.14 m/uL (4.30-5.90); RDW 13.8 % (11.5-15.5); WBC 8.3 k/uL (3.8-10.6)
--- NOTE | 2018-04-04 09:17 | XR ---
EXAMINATION TYPE: XR chest 2V DATE OF EXAM: 04/04/2018 COMPARISON: Chest x-ray February 19, 2018 HISTORY: Bradycardia and dizziness. TECHNIQUE: Frontal and lateral views of the chest are obtained. FINDINGS: Multiple overlying EKG leads are seen. There is no focal air space opacity, pleural effusi on, or pneumothorax seen. The cardiac silhouette size is stable and within normal limits. The osse ous structures are intact. Cholecystectomy clips are appreciated overlying soft tissue on lateral vie w. IMPRESSION: No acute cardiopulmonary process. No significant change from prior.
[2018-04-04] MEDS ORDERED: NALOXONE 0.4 MG/ML 1 ML VIAL IV PRN (09:39)
[2018-04-04 11:41] LABS: Glucose,Whole Blood 121 mg/dL (75-99)
[2018-04-04] MEDS: MAGNESIUM SULFATE-D5W PMX 1 GM in DEXTROSE/WATER 1 100ML.BAG IVPB SCH ×2 (12:45→14:06)
[2018-04-04] MEDS ORDERED: SODIUM CHLORIDE 0.9% 1,000 ML IV SCH (15:15)
[2018-04-04 16:50] LABS: Glucose,Whole Blood 172 mg/dL (75-99)
[2018-04-04] MEDS: INSULIN ASPART 100 UNIT/ML 1 ML 10 ML VIAL SQ SCH ×2 (18:03→20:57)
[2018-04-04 20:48] LABS: Glucose,Whole Blood 102 mg/dL (75-99)
[2018-04-04] MEDS: metFORMIN 500 MG TAB PO SCH (21:30)
[2018-04-04 23:34] VITALS: RESP 18
[2018-04-05] MEDS: INSULIN ASPART 100 UNIT/ML 1 ML 10 ML VIAL SQ SCH ×2 (06:20→11:59)
[2018-04-05 06:21] LABS: Glucose,Whole Blood 109 mg/dL (75-99)
[2018-04-05 07:13] LABS: Calcium 8.3 mg/dL (8.4-10.2); Magnesium 1.8 mg/dL (1.6-2.3); Potassium 4.5 mmol/L (3.5-5.1)
[2018-04-05] MEDS ORDERED: PANTOPRAZOLE 40 MG TABLET PO SCH (07:30)
[2018-04-05 08:35] LABS: Hemoglobin A1C 6.4 % (4.0-6.0)
[2018-04-05] MEDS ORDERED: PRASUGREL 10 MG TAB PO SCH (09:00)
[2018-04-05] MEDS ORDERED: ASPIRIN 81 MG PO SCH (09:00)
[2018-04-05] MEDS: metFORMIN 500 MG TAB PO SCH (09:03)
[2018-04-05] MEDS ORDERED: NITROGLYCERIN SL TABS 0.4 MG TAB SUBLINGUAL PRN (10:29)
--- NOTE | 2018-04-05 10:29 | P.CRDCN ---
History of Present Illness Consult date: 04/05/18 Requesting physician: Alex Archer Reason for Consult (text): Bigeminy Chief complaint: Bradycardia History of present illness: This is 67-year-old gentleman with known history of diabetes, hypertension, hyperlipidemia, coronary artery disease, who presented with a non-Q-wave myocardial infarction in January of this year, he was taken to the cardiac catheterization lab at that time where he underwent angioplasty and stenting of the LAD. Echocardiogram with Doppler study was also performed at that time which revealed an ejection fraction of 30-35%, anteroseptal septal apical hypokinesia noted on that echo. Patient has been going to cardiac rehab, apparently it was noted that his heart rate was quite low and for this reason they canceled the rehab and had him come to the hospital. It was noted on the monitor that he was having bigeminal PVCs. According to the patient for the last 7 or 8 years he's in having a bigeminy. Denied any symptoms at that time of dizziness or lightheadedness. He does state that the day before yesterday he had 1 brief episode of dizziness. He states that this is something he and Dr. Dela Cruz are both aware of. EKG on arrival here showed normal sinus rhythm with bigeminal PVCs complete right bundle branch block pattern. Blood pressure on arrival here 142/66, heart rate in the 60s, 96% on room air. Blood pressure this morning 156/87, heart rate in the 50s, temperature 97.5, he is 97% on room air. Chest x-ray did not reveal any acute cardiopulmonary process. White blood cell count 8.3, hemoglobin 15.6, platelet count 258. Sodium 140, potassium 4.5, BUN 18, creatinine 1.08. Magnesium level I.6 on admission, 1.8 this morning. Troponin 0.012. At the time of my examination this morning, patient feels well, he denies any chest pain, no difficulty in breathing. No dizziness or lightheadedness. He is quite eager to be discharged home. Past Medical History Past Medical History: Coronary Artery Disease (CAD), Diabetes Mellitus, Hypertension, Myocardial Infarction ([place]) Additional Past Medical History / Comment(s): 02/21/18 NSTEMI, ishcemic cardiomyopathy, irregular heart beat-told years ago he needed a pacemaker, NIDDM type II. Last Myocardial Infarction Date:: 02/21/18 History of Any Multi-Drug Resistant Organisms: None Reported Past Surgical History: Cholecystectomy, Heart Catheterization With Stent Additional Past Surgical History / Comment(s): 02/21/18 PCI with stent placement in LAD, pilonidial cyst removed. Past Anesthesia/Blood Transfusion Reactions: No Reported Reaction, Motion Sickness Additional Past Anesthesia/Blood Transfusion Reaction / Comment(s): Pt was a " RH baby" and received multiple blood transfusions as an . Date of Last Stent Placement:: 02/21/18 Smoking Status: Former smoker - Past Family History Mother Family Medical History: No Reported History Additional Family Medical History / Comment(s): Pt states mother at the age of 83 yrs from possibly CHF. Father Family Medical History: Dementia Additional Family Medical History / Comment(s): Father at the age of 65yrs from dementia. Medications and Allergies Home Medications Medication Instructions Recorded Confirmed Type Escitalopram [Lexapro] 20 mg PO DAILY 11/21/15 04/04/18 History Aspirin 81 mg PO DAILY 02/20/18 04/04/18 History metFORMIN HCL [Glucophage] 1 tab PO BID 02/20/18 04/04/18 History Nitroglycerin Sl Tabs [Nitrostat] 0.4 mg SUBLINGUAL Q5M PRN #30 tab 02/21/1806/11 Rx Prasugrel [Effient] 10 mg PO DAILY #30 tab 02/21/18 04/04/18 Rx Spironolactone [Aldactone] 25 mg PO DAILY #30 tab 02/21/18 04/04/18 Rx Carvedilol [Coreg*] 12.5 mg PO BID-W/MEALS #60 tab 02/22/18 04/04/18 Rx Olmesartan Medoxomil 20 mg PO DAILY 04/04/18 04/04/18 History Allergies Allergy/AdvReac Type Severity Reaction Status Date / Time No Known Allergies Allergy Verified 04/04/18 08:37 Physical Exam Vitals: Vital Signs Temp Pulse Pulse Pulse Resp BP BP 04/05/18 08:00 97.5 F L 62 57 L 18 157/87 04/05/18 03:11 57 L 18 117/77 04/04/18 23:28 97 F L 60 18 145/80 04/04/18 20:15 59 L 17 04/04/18 20:00 96.2 F L 55 L 18 139/84 04/04/18 15:40 97.7 F 83 20 121/80 04/04/18 11:46 97.6 F 57 L 30 L 20 130/60 04/04/18 11:01 98.3 F 54 L 17 133/63 Pulse Ox 04/05/18 08:00 97 04/05/18 03:11 96 04/04/18 23:28 98 04/04/18 20:15 04/04/18 20:00 97 04/04/18 15:40 96 04/04/18 11:46 04/04/18 11:01 97 Intake and Output 04/04/18 04/05/18 04/05/18 22:59 06:59 14:59 Intake Total 240 250 Balance 240 250 Intake: IV 250 0.9 @ 50 250 Oral 240 Other: Voiding Method Toilet Toilet Toilet # Voids 1 1 Weight 134.6 kg PHYSICAL EXAMINATION: GENERAL: 67-year-old gentleman in no acute distress at the time of my examination HEENT: Head is atraumatic, normocephalic. Pupils equal, round. Sclera anicteric. Conjunctiva are clear. Mucous membranes of the mouth are moist. Neck is supple. There is no elevated jugular venous pressure.] bruit is heard. HEART EXAMINATION: Heart S1, S2 normal. No murmur or gallop heard. CHEST EXAMINATION: Lungs are clear to auscultation and precussion. No chest wall tenderness is noted on palpation or with deep breathing. ABDOMEN: Soft, nontender. Bowel sounds are heard. No organomegaly noted. EXTREMITIES: 2+ peripheral pulses with no evidence of peripheral edema and no calf tenderness noted. NEUROLOGIC patient is awake, alert and oriented ?-3. . Results 04/04/18 08:30 04/05/18 06:10 Comprehensive Metabolic Panel 04/05/18 Range/Units 06:10 Sodium 140 (137-145) mmol/L Potassium 4.5 (3.5-5.1) mmol/L Chloride 105 (98-107) mmol/L Carbon Dioxide 26 (22-30) mmol/L BUN 18 (9-20) mg/dL Creatinine 1.08 (0.66-1.25) mg/dL Glucose 104 H (74-99) mg/dL Calcium 8.3 L (8.4-10.2) mg/dL Current Medications Generic Name Dose Route Start Last Admin Trade Name Gregq PRN Reason Stop Dose Admin Aspirin 81 mg 04/05/18 09:00 04/05/18 09:03 Aspirin PO 81 mg DAILY KRISHNA Administration Sodium Chloride 1,000 mls @ 50 mls/hr 04/04/18 15:15 04/04/18 15:41 Saline 0.9% IV 50 mls/hr .Q20H KRISHNA Administration Insulin Aspart 0 unit 04/04/18 17:30 04/05/18 06:20 Novolog SQ Not Given ACHS KRISHNA Protocol Metformin HCl 500 mg 04/04/18 21:00 04/05/18 09:03 Glucophage PO 500 mg BID KRISHNA Administration Naloxone HCl 0.2 mg 04/04/18 09:39 Narcan IV Q2M PRN Opioid Reversal Pantoprazole Sodium 40 mg 04/05/18 07:30 04/05/18 06:20 Protonix PO 40 mg AC-BRKFST KRISHNA Administration Prasugrel 10 mg 04/05/18 09:00 04/05/18 09:03 Effient PO 10 mg DAILY KRISHNA Administration Intake and Output 04/04/18 04/05/18 04/05/18 22:59 06:59 14:59 Intake Total 240 250 Balance 240 250 Intake: IV 250 0.9 @ 50 250 Oral 240 Other: Voiding Method Toilet Toilet Toilet # Voids 1 1 Weight 134.6 kg 04/04/18 08:30 04/05/18 06:10 EKG Interpretations (text) EKG shows normal sinus rhythm with bigeminal PVCs Assessment and Plan Plan: Assessment and plan #1 bigeminy, according to the patient, he has been having a bigeminal PVCs for several years. Asymptomatic. #2 known history of coronary artery disease with LAD stenting in January, at which time patient presented with a non-Q-wave RI #3 hypertension #4 hyperlipidemia #5 diabetes #6 hypomagnesemia Plan We will repeat an echocardiogram with Doppler study. Patient did have an echo performed at the time of his RI which revealed an ejection fraction of 30-35%. Replace magnesium. Continue current medications. Further recommendations to follow DNP note has been reviewed, I agree with a documented findings and plan of care. Patient was seen and examined.
[2018-04-05] MEDS ORDERED: MAGNESIUM SULFATE-D5W PMX 1 GM in DEXTROSE/WATER 1 100ML.BAG IVPB SCH (11:00)
[2018-04-05 11:29] LABS: Glucose,Whole Blood 103 mg/dL (75-99)
--- NOTE | 2018-04-05 11:43 | P.HPIM ---
History of Present Illness H&P Date: 04/05/18 Chief Complaint: bigeminy seen on EKG 67-year-old male who presented to the emergency room via EMS after he was at cardiac rehab and found to be bradycardic. Staff members did not allow him to participate and called EMS to bring him to the hospital for further evaluation. The patient was hospitalized from 02/19/2018 until 02/22/2018 secondary to myocardial infarction. Patient underwent cardiac catheterization during that time and was found to have 99% stenosis in the LAD and underwent stenting. The patient also has a history of hypertension, hyperlipidemia, and diabetes mellitus. The patient reports he has had a history of bigeminy for the last 8 years and reports he sees Dr. Martinez outpatient who is also aware of this. He denies any episodes of chest pain or pressure. Denies shortness of breath. He does report one episode of dizziness 2 days ago. Chest x-ray: Negative for an acute cardiopulmonary process. EKG: Sinus rhythm with bigeminy. Laboratory data upon admission reveals white count of 8.3. Hemoglobin 15.6. Bili count 258. Sodium 141. Potassium 4.5. BUN 19. Creatinine 1.08. Glucose 139. Magnesium 1.6. Troponin negative 1. The patient was admitted to the hospital under the care of Dr. Archer. Consultations were placed to cardiology. Review of Systems Those systems with pertinent positive or pertinent negative responses have been documented in the HPI Past Medical History Past Medical History: Coronary Artery Disease (CAD), Diabetes Mellitus, Hypertension, Myocardial Infarction ([place]) Additional Past Medical History / Comment(s): 02/21/18 NSTEMI, ishcemic cardiomyopathy, irregular heart beat-told years ago he needed a pacemaker, NIDDM type II. Last Myocardial Infarction Date:: 02/21/18 History of Any Multi-Drug Resistant Organisms: None Reported Past Surgical History: Cholecystectomy, Heart Catheterization With Stent Additional Past Surgical History / Comment(s): 02/21/18 PCI with stent placement in LAD, pilonidial cyst removed. Past Anesthesia/Blood Transfusion Reactions: No Reported Reaction, Motion Sickness Additional Past Anesthesia/Blood Transfusion Reaction / Comment(s): Pt was a " RH baby" and received multiple blood transfusions as an infant. Date of Last Stent Placement:: 02/21/18 Smoking Status: Former smoker - Past Family History Mother Family Medical History: No Reported History Additional Family Medical History / Comment(s): Pt states mother at the age of 83 yrs from possibly CHF. Father Family Medical History: Dementia Additional Family Medical History / Comment(s): Father at the age of 65yrs from dementia. Medications and Allergies Home Medications Medication Instructions Recorded Confirmed Type Escitalopram [Lexapro] 20 mg PO DAILY 11/21/15 04/04/18 History Aspirin 81 mg PO DAILY 02/20/18 04/04/18 History metFORMIN HCL [Glucophage] 1 tab PO BID 02/20/18 04/04/18 History Nitroglycerin Sl Tabs [Nitrostat] 0.4 mg SUBLINGUAL Q5M PRN #30 tab 02/21/1806/11 Rx Prasugrel [Effient] 10 mg PO DAILY #30 tab 02/21/18 04/04/18 Rx Spironolactone [Aldactone] 25 mg PO DAILY #30 tab 02/21/18 04/04/18 Rx Carvedilol [Coreg*] 12.5 mg PO BID-W/MEALS #60 tab 02/22/18 04/04/18 Rx Olmesartan Medoxomil 20 mg PO DAILY 04/04/18 04/04/18 History Allergies Allergy/AdvReac Type Severity Reaction Status Date / Time No Known Allergies Allergy Verified 04/04/18 08:37 Physical Exam Vitals: Vital Signs Temp Pulse Pulse Resp BP Pulse Ox 04/05/18 08:00 97.5 F L 62 57 L 18 157/87 97 04/05/18 03:11 57 L 18 117/77 96 04/04/18 23:28 97 F L 60 18 145/80 98 04/04/18 20:15 59 L 17 04/04/18 20:00 96.2 F L 55 L 18 139/84 97 04/04/18 15:40 97.7 F 83 20 121/80 96 04/04/18 11:46 97.6 F 57 L 30 L 20 130/60 Intake and Output 04/04/18 04/05/18 04/05/18 22:59 06:59 14:59 Intake Total 240 250 Balance 240 250 Intake: IV 250 0.9 @ 50 250 Oral 240 Other: Voiding Method Toilet Toilet Toilet # Voids 1 1 Weight 134.6 kg GENERAL: This is a 67-year-old male in no apparent distress at the time of examination. Pleasant and cooperative. HEENT: Head is atraumatic, normocephalic. Sclerae anicteric. Conjunctivae are clear. Mucus membranes of the mouth are moist. Neck is supple. RESPIRATORY: Clear to ausculation. No wheezes, rales, or rhonchi. No use of accessory muscles. Patient maintaining oxygen saturation greater than 92% CARDIOVASCULAR: Telemetry currently reveals SR. Earlier this morning was SR with bigeminy. S1 and S2 noted. No systolic or diastolic murmur auscultated. No JVD noted. GASTROINTESTINAL: No distention noted. Abdomen soft and round. Normal active bowel sounds auscultated x 4 quadrants. INTEGUMENTARY: No cyanosis. No jaundice. No rashes noted. No cellulitis noted. EXTREMITIES: 2+ peripheral pulses. No evidence of peripheral edema. No calf tenderness noted. NEUROLOGIC: Cranial nerves II-XII intact. PSYCHIATRIC: Awake, alert, and oriented X 3. Appropriate affect. Intact judgement and insight. Results CBC & Chem 7: 04/04/18 08:30 04/05/18 06:10 Labs: Abnormal Lab Results - Last 24 Hours (Table) 04/04/18 04/04/18 04/04/18 Range/Units 08:30 11:34 16:18 Glucose (74-99) mg/dL POC Glucose (mg/dL) 121 H 172 H (75-99) mg/dL Hemoglobin A1c 6.4 H (4.0-6.0) % Calcium (8.4-10.2) mg/dL 04/04/18 04/05/18 04/05/18 Range/Units 20:43 06:10 06:20 Glucose 104 H (74-99) mg/dL POC Glucose (mg/dL) 102 H 109 H (75-99) mg/dL Hemoglobin A1c (4.0-6.0) % Calcium 8.3 L (8.4-10.2) mg/dL Thrombosis Risk Factor Assmnt - Choose All That Apply Any of the Below Risk Factors Present?: Yes Each Factor Represents 1 point: Obesity (BMI >25) Other Risk Factors: Yes Each Risk Factor Represents 2 Points: Age 61-74 years Other congenital or acquired thrombophilia - If yes, enter type in comment: No Thrombosis Risk Factor Assessment Total Risk Factor Score: 3 Thrombosis Risk Factor Assessment Level: Moderate Risk Assessment and Plan Plan: ASSESSMENT: Asymptomatic mario alberto, patient reports history of this x 8 years Coronary artery disease with myocardial infarction, January 2018, s/p stent to the LAD Diabetes mellitus, type II Hypomagnesemia Hypertension Depression, unspecified Nicotine dependence, in remission, patient quit smoking 2 years ago Obesity: BMI 35.2 PLAN: Cardiology on consult. Appreciate recommendations and input Echo ordered. Await results. Replace magnesium Novolog sliding scale ACHS Home meds as appropriate Monitor labs GI prophylaxis: Protonix 40 mg PO Daily DVT prophylaxis: SCDs to BL LE Monitor vital signs and address as appropriate Discharge planning: Patient to return home when stable Further recommendations pending patient's course Patient may be discharged home this afternoon if cleared by cardiology Nurse practitioner note has been reviewed by physician. Signing provider agrees with the documented findings, assessment, and plan of care.
[2018-04-05 11:58] VITALS: BP 152/83; PULSE 57; TEMP 97
--- NOTE | 2018-04-05 14:23 | ECHOF ---
Referral Reason:[facility] MEASUREMENTS -------- HEIGHT: 188.0 cm WEIGHT: 134.3 kg BP: 157/87 FINDINGS -------- Sinus rhythm. Limited study for [facility]: Complete echo done 02/20/18 Overall left ventricular systolic function is low-normal with, an EF between 50 - 55 %. CONCLUSIONS -------- 1. Limited study for [facility]: Complete echo done 02/20/18 DISEASE MANAGEMENT NURSE: Hue Swann RDCS
[2018-04-05] MEDS ORDERED: CARVEDILOL 6.25 MG TAB PO SCH (17:30)
[2018-04-05] MEDS ORDERED: CARVEDILOL 12.5 MG TAB PO SCH (17:30)
--- NOTE | 2018-04-06 08:55 | P.DS ---
Providers Date of admission: 04/04/18 09:40 Expected date of discharge: 04/05/18 Attending physician: Alex Archer Consults: 04/04/18 09:34 Consult Physician Routine Consulting Provider: Olive Polk Consult Reason/Comments: dizziness, ekg abnormalities Do you want consulting provider notified?: Yes Primary care physician: Alex Archer [facility] Course: 67-year-old male who presented to the emergency room via EMS after he was at cardiac rehab and found to be bradycardic. Staff members did not allow him to participate and called EMS to bring him to the hospital for further evaluation. The patient was hospitalized from 02/19/2018 until 02/22/2018 secondary to myocardial infarction. Patient underwent cardiac catheterization during that time and was found to have 99% stenosis in the LAD and underwent stenting. The patient also has a history of hypertension, hyperlipidemia, and diabetes mellitus. The patient reports he has had a history of bigeminy for the last 8 years and reports he sees Dr. Martinez outpatient who is also aware of this. He denies any episodes of chest pain or pressure. Denies shortness of breath. He does report one episode of dizziness 2 days ago. Chest x-ray: Negative for an acute cardiopulmonary process. EKG: Sinus rhythm with bigeminy. Laboratory data upon admission reveals white count of 8.3. Hemoglobin 15.6. Bili count 258. Sodium 141. Potassium 4.5. BUN 19. Creatinine 1.08. Glucose 139. Magnesium 1.6. Troponin negative 1. The patient was evaluated by cardiology. No intervention was recommended. The patient remained asymptomatic. He is stable for discharge when cleared by cardiology. DISCHARGE DIAGNOSIS: Asymptomatic mario alberto, patient reports history of this x 8 years Coronary artery disease with myocardial infarction, January 2018, s/p stent to the LAD Diabetes mellitus, type II Hypomagnesemia Hypertension Depression, unspecified Nicotine dependence, in remission, patient quit smoking 2 years ago Obesity: BMI 35.2 Nurse practitioner note has been reviewed by physician. Signing provider agrees with the documented findings, assessment, and plan of care. Patient Condition at Discharge: Good Plan - Discharge Summary Discharge Rx Participant: No New Discharge Prescriptions: Continue Escitalopram [Lexapro] 20 mg PO DAILY Aspirin 81 mg PO DAILY metFORMIN HCL [Glucophage] 1 tab PO BID Nitroglycerin Sl Tabs [Nitrostat] 0.4 mg SUBLINGUAL Q5M PRN #30 tab PRN Reason: Chest Pain Prasugrel [Effient] 10 mg PO DAILY #30 tab Spironolactone [Aldactone] 25 mg PO DAILY #30 tab Carvedilol [Coreg*] 12.5 mg PO BID-W/MEALS #60 tab Olmesartan Medoxomil 20 mg PO DAILY Discharge Medication List Escitalopram [Lexapro] 20 mg PO DAILY 11/21/15 [History] Aspirin 81 mg PO DAILY 02/20/18 [History] metFORMIN HCL [Glucophage] 1 tab PO BID 02/20/18 [History] Nitroglycerin Sl Tabs [Nitrostat] 0.4 mg SUBLINGUAL Q5M PRN #30 tab 02/21/18 [Rx ] Prasugrel [Effient] 10 mg PO DAILY #30 tab 02/21/18 [Rx] Spironolactone [Aldactone] 25 mg PO DAILY #30 tab 02/21/18 [Rx] Carvedilol [Coreg*] 12.5 mg PO BID-W/MEALS #60 tab 02/22/18 [Rx] Olmesartan Medoxomil 20 mg PO DAILY 04/04/18 [History] Follow up Appointment(s)/Referral(s): Liv Dela Cruz MD [STAFF PHYSICIAN] - 1 Week Alex Archer DO [Primary Care Provider] - 04/12/18 10:20 am (Tuesday) Activity/Diet/Wound Care/Special Instructions: patient may be discharged if cleared by cardiology
[2018-04-06] MEDS ORDERED: SPIRONOLACTONE 25 MG TAB PO SCH (09:00)
[2018-04-06] MEDS ORDERED: ESCITALOPRAM 20 MG TAB PO SCH (09:00)
[2018-04-06] MEDS ORDERED: LOSARTAN 50 MG TAB PO SCH (09:00)
== END 2018-04-05 14:48 | disposition home or self-care (01) ==
LOC: EC 08:10 → 6SEL 09:40
PROVIDERS: ADMIT Family Medicine; ATTEND Family Medicine
DX: R00.8 Other abnormalities of heart beat (principal); E83.42 Hypomagnesemia; I25.10 Atherosclerotic heart disease of native coronary artery without angina pectoris; E78.5 Hyperlipidemia, unspecified; I49.3 Ventricular premature depolarization; I11.0 Hypertensive heart disease with heart failure; I50.9 Heart failure, unspecified; I25.5 Ischemic cardiomyopathy; E11.9 Type 2 diabetes mellitus without complications; E66.9 Obesity, unspecified; Z68.35 Body mass index [BMI] 35.0-35.9, adult; R00.0 Tachycardia, unspecified; F32.9 Major depressive disorder, single episode, unspecified; Z79.82 Long term (current) use of aspirin; Z79.02 Long term (current) use of antithrombotics/antiplatelets; Z79.84 Long term (current) use of oral hypoglycemic drugs; Z79.899 Other long term (current) drug therapy; Z87.2 Personal history of diseases of the skin and subcutaneous tissue; I25.2 Old myocardial infarction; Z90.49 Acquired absence of other specified parts of digestive tract; Z95.5 Presence of coronary angioplasty implant and graft; Z87.891 Personal history of nicotine dependence; Z81.8 Family history of other mental and behavioral disorders
CPT/HCPCS: 99285 ×2; 96365; 96366; 36415; 93005; 93308; 80048 ×2; 83735 ×2; 84484; 85025; 85610; 83036; 71046; G0378 ×2; J3475 ×2

== ENCOUNTER → 2018-05-16 | Outpatient (CLI) | payer MEDICARE, OTHER ==
[2018-05-16 16:08] LABS: LDL Cholesterol,Calculated 57.4 mg/dL (0.0-131.0)
[2018-05-17 07:04] LABS: VLDL Calculation 33.6 mg/dL (5.00-40.00)
== END | disposition home or self-care (01) ==
LOC: LABWHC1 09:49
PROVIDERS: ATTEND Internal Medicine Interventional Cardiology
DX: E78.2 Mixed hyperlipidemia (principal)
CPT/HCPCS: 36415; 80061

== ENCOUNTER → 2018-09-15 | Outpatient (CLI) | payer MEDICARE, OTHER ==
[2018-09-15 11:45] LABS: Albumin 4.4 g/dL (3.80-4.90); Albumin/Globulin Ratio 1.91 (1.60-3.17); Anion Gap 7.6 mmol/L (4.00-12.00); Carbon Dioxide 28.4 mmol/L (21.6-31.8); Globulin 2.3 g/dL (1.6-3.3); LDL Cholesterol,Calculated 57.2 mg/dL (0.0-131.0); Potassium 4.7 mmol/L (3.5-5.5); Total Bilirubin 0.8 mg/dL (0.3-1.2); Total Protein 6.7 g/dL (6.2-8.2); VLDL Calculation 31.8 mg/dL (5.00-40.00)
== END | disposition home or self-care (01) ==
LOC: LABWHC1 06:35
PROVIDERS: ATTEND Internal Medicine Interventional Cardiology
DX: E78.2 Mixed hyperlipidemia (principal)
CPT/HCPCS: 36415; 80053; 80061

== ENCOUNTER 2018-09-18 11:33 | Emergency (ER) | payer MEDICARE, OTHER ==
[2018-09-18 11:43] VITALS: TEMP 98.5
[2018-09-18] MEDS ORDERED: Acetaminophen-Codeine 300-30mg TAB PO STA (12:36)
[2018-09-18] MEDS ORDERED: predniSONE 20 MG TAB PO STA (12:36)
[2018-09-18] MEDS ORDERED: KETOROLAC 60 MG/2 ML VIAL IM STA (12:36)
--- NOTE | 2018-09-18 13:27 | CT ---
EXAMINATION TYPE: CT lumbar spine wo con DATE OF EXAM: 09/18/2018 1:20 PM COMPARISON: None. HISTORY: Low back pain CT DLP: 1682.6 mGycm Automated exposure control for dose reduction was used. Unenhanced CT of the lumbar spine was performed. Bone and soft tissue window settings are submitted as well as coronal and sagittal reconstructions. There are 5 lumbar type vertebra identified. No acute fracture or dislocation is seen. Vertebral body heights and disc space heights are fairly well-maintained. Slight grade 1 anterolisthesis L4 on L5 i s present. No large posterior disc herniations are seen on sagittal images. Mild to moderate multilev el anterior and lateral spurring is seen. Axial images at T11-T12 level show posterior facet arthropathy effacing posterior lateral thecal sac and axial image 8. Axial images at L2-L3 level show mild to moderate broad disc bulge and mild facet degenerative change s bilaterally, some effacement anterior thecal sac is seen on axial image 42. There is mild left grea ter than right bilateral anterior inferior neural foraminal narrowing. Axial images at L3-L4 level show mild to moderate facet degenerative changes bilaterally. There is mi ld/moderate broad disc bulge effacing anterior thecal sac with right paracentral component effacing l ateral recess on axial image 55. Bilateral neural foramina show mild anterior inferior neural foramin al narrowing. Axial images at L4-L5 level show moderate to advanced facet degenerative changes bilaterally. There i s spondylolisthesis and broad-based disc protrusion. There is effacement of the posterior lateral the jamal sac bilaterally on axial image 67. There is moderate bilateral neural foraminal narrowing noted. Axial images at L5-S1 level show mild facet degenerative changes bilaterally. Spinal canal is preserv ed. Bilateral neural foramina are patent. There is 3.3 cm low dense lesion posteriorly left kidney axial image 25 felt to reflect simple cysts. Normal-appearing appendix is partially visualized from cecum. There is partial visualization of dive rticula in the sigmoid colon. IMPRESSION: No acute fracture or dislocation. Multilevel degenerative changes as detailed above.
--- NOTE | 2018-09-18 13:29 | CT ---
EXAMINATION TYPE: CT sacrum wo con DATE OF EXAM: 09/18/2018 COMPARISON: None HISTORY: Low back and sacral pain CT DLP: 1682.6 mGycm Automated exposure control for dose reduction was used. FINDINGS: Repeat imaging of sacrum is attempted. No acute fracture or dislocation is seen. Entire inferior sacr um and coccyx is not included. Visualized portion of sacroiliac joints are symmetric with mild to mod erate spurring right greater than left. No suspicious sclerosis or narrowing is present bilaterally. Diverticula in the sigmoid colon are partially imaged. No pelvic fluid collection is seen. IMPRESSION: NO ACUTE FRACTURE OR DISLOCATION IN VISUALIZED PORTION OF SACRUM.
[2018-09-18] MEDS ORDERED: ACET/COD 300 MG/30 MG STARTER PACK 6 TAB BTL PO STA (13:36)
--- NOTE | 2018-09-18 13:37 | ED ---
Back Pain HPI - General Chief Complaint: Back Pain/Injury Stated Complaint: back pain Time Seen by Provider: 09/18/18 11:44 Source: patient, RN notes reviewed, old records reviewed Limitations: no limitations - History of Present Illness Initial Comments: This is a 68-year-old male the ER for evaluation. Patient states he has history of some back injuries and prior back evaluation with MRI and has had no real problems for quite some time. Patient developed severe back pain about 3- 4 days ago which have persisted. Patient to be positional with no pain going down his leg no loss of bowel or bladder. Patient denies any significant trauma no fevers. MD Complaint: back pain -: days(s) Similar Symptoms Previously: Yes Place: home Radiation: none Severity: mild Severity scale (1-10): 3 Quality: aching (Left paraspinal) Consistency: intermittent, now resolved Improves With: none Worsens With: none Context: while lifting Associated Symptoms: denies other symptoms - Related Data Home Medications Medication Instructions Recorded Confirmed Escitalopram [Lexapro] 20 mg PO DAILY 11/21/15 09/18/18 Aspirin 81 mg PO DAILY 02/20/18 09/18/18 metFORMIN HCL [Glucophage] 500 mg PO BID 02/20/18 09/18/18 Olmesartan Medoxomil 20 mg PO DAILY 04/04/18 09/18/18 Atorvastatin Calcium [Lipitor] 80 mg PO DAILY 09/18/18 09/18/18 Carvedilol [Coreg] 6.25 mg PO BID-W/MEALS 09/18/18 09/18/18 Ibuprofen [Motrin Ib] 600 mg PO Q6H PRN 09/18/18 09/18/18 Previous Rx's Medication Instructions Recorded Nitroglycerin Sl Tabs [Nitrostat] 0.4 mg SUBLINGUAL Q5M PRN #30 tab 02/21/18 Prasugrel [Effient] 10 mg PO DAILY #30 tab 02/21/18 Spironolactone [Aldactone] 25 mg PO DAILY #30 tab 02/21/18 Naproxen [Naprosyn] 500 mg PO Q12HR PRN #30 tab 09/18/18 predniSONE 50 mg PO DAILY #5 tab 09/18/18 Allergies Allergy/AdvReac Type Severity Reaction Status Date / Time No Known Allergies Allergy Verified 09/18/18 11:59 Review of Systems ROS Statement: Those systems with pertinent positive or pertinent negative responses have been documented in the HPI. ROS Other: All systems not noted in ROS Statement are negative. Past Medical History Past Medical History: Coronary Artery Disease (CAD), Diabetes Mellitus, Hypertension, Myocardial Infarction ([place]) Additional Past Medical History / Comment(s): 02/21/18 NSTEMI, ishcemic cardiomyopathy, irregular heart beat-told years ago he needed a pacemaker, NIDDM type II. Last Myocardial Infarction Date:: 02/21/18 History of Any Multi-Drug Resistant Organisms: None Reported Past Surgical History: Cholecystectomy, Heart Catheterization With Stent Additional Past Surgical History / Comment(s): 02/21/18 PCI with stent placement in LAD, pilonidial cyst removed. Past Anesthesia/Blood Transfusion Reactions: No Reported Reaction, Motion Sickness Additional Past Anesthesia/Blood Transfusion Reaction / Comment(s): Pt was a " RH baby" and received multiple blood transfusions as an . Date of Last Stent Placement:: 02/21/18 Past Psychological History: No Psychological Hx Reported Smoking Status: Former smoker Past Alcohol Use History: None Reported Past Drug Use History: None Reported - Past Family History Mother Family Medical History: No Reported History Additional Family Medical History / Comment(s): Pt states mother at the age of 83 yrs from possibly CHF. Father Family Medical History: Dementia Additional Family Medical History / Comment(s): Father at the age of 65yrs from dementia. General Exam - General Exam Comments Initial Comments: No neurological findings no focal neurological findings noted Limitations: no limitations General appearance: alert, in no apparent distress Head exam: Present: atraumatic, normocephalic, normal inspection Eye exam: Present: normal appearance, PERRL, EOMI. Absent: scleral icterus, conjunctival injection, periorbital swelling ENT exam: Present: normal exam, mucous membranes moist Neck exam: Present: normal inspection. Absent: tenderness, meningismus, lymphadenopathy Respiratory exam: Present: normal lung sounds bilaterally. Absent: respiratory distress, wheezes, rales, rhonchi, stridor Cardiovascular Exam: Present: regular rate, normal rhythm, normal heart sounds. Absent: systolic murmur, diastolic murmur, rubs, gallop, clicks GI/Abdominal exam: Present: soft, normal bowel sounds. Absent: distended, tenderness, guarding, rebound, rigid Extremities exam: Present: normal inspection, full ROM, normal capillary refill. Absent: tenderness, pedal edema, joint swelling, calf tenderness Back exam: Present: normal inspection Neurological exam: Present: alert, oriented X3, CN II-XII intact Psychiatric exam: Present: normal affect, normal mood Skin exam: Present: warm, dry, intact, normal color. Absent: rash Course Vital Signs 09/18/18 09/18/18 11:39 14:19 Temperature 98.5 F Pulse Rate 67 66 Respiratory 18 16 Rate Blood Pressure 121/85 120/79 O2 Sat by Pulse 97 98 Oximetry Medical Decision Making - Medical Decision Making 68 male the ER for evaluation back pain. Patient is CT is negative, patient is able to ambulate with no neurological deficit. Patient can be discharged home - Radiology Data Radiology results: report reviewed (CT lumbosacral spine is negative for acute disease), image reviewed Disposition Clinical Impression: Strain of lumbar region, Mechanical back pain Disposition: HOME SELF-CARE Condition: Good Instructions (If sedation given, give patient instructions): Acute Low Back Pain (ED) Prescriptions: Naproxen [Naprosyn] 500 mg PO Q12HR PRN #30 tab PRN Reason: Pain predniSONE 50 mg PO DAILY #5 tab Is patient prescribed a controlled substance at d/c from ED?: No Referrals: Alex Archer DO [Primary Care Provider] - 1-2 days
[2018-09-18 14:20] VITALS: BP 120/79; PULSE 66; RESP 16
== END 2018-09-18 14:15 | disposition home or self-care (01) ==
LOC: EC 11:33
DX: S39.012A Strain of muscle, fascia and tendon of lower back, initial encounter (principal); I25.10 Atherosclerotic heart disease of native coronary artery without angina pectoris; E11.9 Type 2 diabetes mellitus without complications; I25.2 Old myocardial infarction; I11.9 Hypertensive heart disease without heart failure; I43 Cardiomyopathy in diseases classified elsewhere; Z95.5 Presence of coronary angioplasty implant and graft; Z87.891 Personal history of nicotine dependence; Z79.82 Long term (current) use of aspirin; Z79.84 Long term (current) use of oral hypoglycemic drugs; Z79.899 Other long term (current) drug therapy; X50.0XXA Overexertion from strenuous movement or load, initial encounter; Y93.89 Activity, other specified; Y92.009 Unspecified place in unspecified non-institutional (private) residence as the place of occurrence of the external cause
CPT/HCPCS: 72131; 72192; 99284; 96372; J1885; J7512

== ENCOUNTER → 2021-01-10 | Outpatient (CLI) | payer MEDICARE ==
[2021-01-10 12:09] LABS: HCT 45.2 % (39.6-50.0); HGB 14.7 g/dL (13.0-17.0); MCH 30.5 pg (27.0-32.0); MCHC 32.5 g/dL (32.0-37.0); MCV 93.8 fL (80.0-97.0); Mean Platelet Volume 10.1 fL (9.5-12.2); Platelet Count 250 X 10*3/uL (140-440); RBC 4.82 X 10*6/uL (4.40-5.60); RDW 13.8 % (11.5-14.5); WBC 8.48 X 10*3/uL (4.50-10.00)
[2021-01-10 13:26] LABS: African American GFR (CKD) 58.2 (60.0-200.0); Albumin 4.5 g/dL (3.80-4.90); Albumin/Globulin Ratio 1.88 (1.60-3.17); Anion Gap 7.3 mmol/L (4.00-12.00); Carbon Dioxide 26.7 mmol/L (21.6-31.8); Chol/HDL Ratio 2.9; Globulin 2.4 g/dL (1.6-3.3); LDL Cholesterol,Calculated 36.2 mg/dL (0.0-131.0); Non-African American GFR(CKD) 50.2 (60.0-200.0); Potassium 4.8 mmol/L (3.5-5.5); T4, Free (Free Thyroxine) 0.9 ng/dL (0.80-1.80); Total Bilirubin 0.9 mg/dL (0.3-1.2); Total Protein 6.9 g/dL (6.2-8.2); VLDL Calculation 22.8 mg/dL (5.00-40.00)
[2021-01-10 16:23] LABS: Hemoglobin A1C 9.4 % (4.0-6.0)
== END | disposition home or self-care (01) ==
LOC: LABWHC1 08:01
PROVIDERS: ATTEND Family Medicine
DX: I10 Essential (primary) hypertension (principal); E11.9 Type 2 diabetes mellitus without complications; E78.5 Hyperlipidemia, unspecified
CPT/HCPCS: 36415; 80053; 80061; 83036; 84439; 84443; 85027

== ENCOUNTER 2021-02-21 06:48 | Inpatient (IN) | payer MEDICARE ==
[2021-02-21] MEDS ORDERED: SODIUM CHLORIDE 0.9% 1,000 ML IV STA (06:54)
[2021-02-21] MEDS ORDERED: PANTOPRAZOLE 40 MG/10 ML VIAL IVP STA (06:54)
[2021-02-21] MEDS ORDERED: ONDANSETRON 4 MG/2 ML VIAL IVP STA (06:54)
[2021-02-21] MEDS ORDERED: SODIUM CHLORIDE 0.9% 500 ML 500 ML IV ONE (06:59)
[2021-02-21 07:10] LABS: Basophils # (A) 0.1 k/uL (0-0.2); Basophils % (A) 0 %; Eosinophils # (A) 0.3 k/uL (0-0.7); Eosinophils % (A) 2 %; HCT 35.7 % (39.0-53.0); HGB 12.3 gm/dL (13.0-17.5); Lymphocytes # (A) 2.2 k/uL (1.0-4.8); Lymphocytes % (A) 15 %; MCHC 34.5 g/dL (31.0-37.0); MCV 92.6 fL (80.0-100.0); Mean Platelet Volume 8.7; Monocytes % (A) 7 %; Neutrophils # (A) 10.5 k/uL (1.3-7.7); Neutrophils % (A) 72 %; Platelet Count 268 k/uL (150-450); RBC 3.85 m/uL (4.30-5.90); RDW 14.1 % (11.5-15.5); WBC 14.6 k/uL (3.8-10.6)
[2021-02-21 07:21] LABS: Albumin 3.4 g/dL (3.5-5.0); Calcium 8.2 mg/dL (8.4-10.2); Potassium 4.1 mmol/L (3.5-5.1); Total Bilirubin 0.7 mg/dL (0.2-1.3); Total Protein 5.8 g/dL (6.3-8.2)
[2021-02-21 07:28] LABS: Prothrombin Time 10.5 sec (9.0-12.0)
[2021-02-21 07:53] LABS: Partial Thromboplastin Time 20.8 sec (22.0-30.0)
--- NOTE | 2021-02-21 08:10 | ED ---
GI Bleed HPI - General Chief complaint: GI Bleed Stated complaint: GI bleed Time Seen by Provider: 02/21/21 06:54 Source: patient, EMS, RN notes reviewed Mode of arrival: EMS Limitations: no limitations - History of Present Illness Initial comments: This is a 70-year-old male with a history of type 2 diabetes hypertension who had a colonoscopy done approximately a week ago with a single polyp removed and started developing rectal bleeding last night. He did feel lightheaded and weak he had continued bleeding today with a large bright red bowel movement this morning. He was found to be pale diaphoretic blood pressure 83/58 heart rate was 77 he is again a beta blockers. Patient was seen initially by Dr. Tsang and the rapid transfusion protocol was initiated. Patient denies any abdominal pain at this time no other complaints MD complaint: gross hematochezia - Related Data Home Medications Medication Instructions Recorded Confirmed Escitalopram [Lexapro] 20 mg PO DAILY 11/21/15 09/18/18 Aspirin 81 mg PO DAILY 02/20/18 09/18/18 metFORMIN HCL [Glucophage] 500 mg PO BID 02/20/18 09/18/18 Olmesartan Medoxomil 20 mg PO DAILY 04/04/18 09/18/18 Atorvastatin Calcium [Lipitor] 80 mg PO DAILY 09/18/18 09/18/18 Ibuprofen [Motrin Ib] 600 mg PO Q6H PRN 09/18/18 09/18/18 carvediloL [Coreg] 6.25 mg PO BID-W/MEALS 09/18/18 09/18/18 Previous Rx's Medication Instructions Recorded Nitroglycerin Sl Tabs [Nitrostat] 0.4 mg SUBLINGUAL Q5M PRN #30 tab 02/21/18 Prasugrel [Effient] 10 mg PO DAILY #30 tab 02/21/18 Spironolactone [Aldactone] 25 mg PO DAILY #30 tab 02/21/18 Naproxen [Naprosyn] 500 mg PO Q12HR PRN #30 tab 09/18/18 predniSONE 50 mg PO DAILY #5 tab 09/18/18 Allergies Allergy/AdvReac Type Severity Reaction Status Date / Time No Known Allergies Allergy Verified 09/18/18 11:59 Review of Systems ROS Statement: Those systems with pertinent positive or pertinent negative responses have been documented in the HPI. ROS Other: All systems not noted in ROS Statement are negative. Past Medical History Past Medical History: Coronary Artery Disease (CAD), Diabetes Mellitus, Hypert ension, Myocardial Infarction ([place]) Additional Past Medical History / Comment(s): 02/21/18 NSTEMI, ishcemic cardiomyopathy, irregular heart beat-told years ago he needed a pacemaker, NIDDM type II. Last Myocardial Infarction Date:: 02/21/18 History of Any Multi-Drug Resistant Organisms: None Reported Past Surgical History: Cholecystectomy, Heart Catheterization With Stent Additional Past Surgical History / Comment(s): 02/21/18 PCI with stent placement in LAD, pilonidial cyst removed. Past Anesthesia/Blood Transfusion Reactions: No Reported Reaction, Motion Sickness Additional Past Anesthesia/Blood Transfusion Reaction / Comment(s): Pt was a "RH baby" and received multiple blood transfusions as an infant. Date of Last Stent Placement:: 02/21/18 Past Psychological History: No Psychological Hx Reported Smoking Status: Never smoker Past Alcohol Use History: None Reported Past Drug Use History: None Reported - Past Family History Mother Family Medical History: No Reported History Additional Family Medical History / Comment(s): Pt states mother at the age of 83 yrs from possibly CHF. Father Family Medical History: Dementia Additional Family Medical History / Comment(s): Father at the age of 65yrs from dementia. General Exam - General Exam Comments Initial Comments: This a well-developed well-nourished awake alert oriented 3 male Limitations: no limitations General appearance: alert, anxious Head exam: Present: atraumatic, normocephalic, normal inspection Eye exam: Present: normal appearance, PERRL, EOMI. Absent: scleral icterus, conjunctival injection, periorbital swelling ENT exam: Present: normal exam, mucous membranes moist Neck exam: Present: normal inspection, full ROM, other (No stridor JVD or bruits). Absent: tenderness, meningismus, lymphadenopathy Respiratory exam: Present: normal lung sounds bilaterally. Absent: respiratory distress, wheezes, rales, rhonchi, stridor Cardiovascular Exam: Present: regular rate, normal rhythm, normal heart sounds. Absent: systolic murmur, diastolic murmur, rubs, gallop, clicks GI/Abdominal exam: Present: soft, normal bowel sounds. Absent: distended, tenderness, guarding, rebound, rigid Rectal exam: Present: heme (+) stool (Red and burgundy-colored stool noted on exam no masses), bloody stool Extremities exam: Present: normal inspection, full ROM, normal capillary refill. Absent: tenderness, pedal edema, joint swelling, calf tenderness Back exam: Present: normal inspection Neurological exam: Present: alert, oriented X3, CN II-XII intact Psychiatric exam: Present: normal affect, normal mood Skin exam: Present: warm, dry, intact, pallor. Absent: rash Course Vital Signs 02/21/21 02/21/21 02/21/21 06:50 07:00 07:58 Temperature 97.8 F 97.3 F L Pulse Rate 75 68 73 Respiratory 18 18 18 Rate Blood Pressure 97/65 87/56 98/54 O2 Sat by Pulse 98 97 100 Oximetry 02/21/21 02/21/21 02/21/21 08:04 08:08 08:17 Temperature 97.3 F L 97.2 F L 97.2 F L Pulse Rate 73 70 68 Respiratory 18 18 18 Rate Blood Pressure 98/54 105/66 104/59 O2 Sat by Pulse 100 100 99 Oximetry 02/21/21 08:39 Temperature 97.3 F L Pulse Rate 63 Respiratory 18 Rate Blood Pressure 107/63 O2 Sat by Pulse Oximetry - Reevaluation(s) Reevaluation #1: 02/21/21 08:34 Initial reevaluation showed blood pressure still in the 80s the patient is awake and alert. Did appear pale Reevaluation #2: 02/21/21 08:34 Examination within the last 5 minutes showed paced be awake alert his color had improved after one unit of blood. Blood pressure is improving. He will receive a second unit of blood. Medical Decision Making - Medical Decision Making The patient is improving with blood transfusion. I did discuss the case with multiple physicians patient will be admitted ICU for close monitoring. Case is discussed with Dr. Garsia and Dr. lopez as well as with Dr. Monique and Dr. Baeza - Lab Data Result diagrams: 02/21/21 06:58 02/21/21 06:58 Lab Results 02/21/21 02/21/21 02/21/21 Range/Units 06:55 06:58 06:58 WBC 14.6 H (3.8-10.6) k/uL RBC 3.85 L (4.30-5.90) m/uL Hgb 12.3 L (13.0-17.5) gm/dL Hct 35.7 L (39.0-53.0) % MCV 92.6 (80.0-100.0) fL MCH 32.0 (25.0-35.0) pg MCHC 34.5 (31.0-37.0) g/dL RDW 14.1 (11.5-15.5) % Plt Count 268 (150-450) k/uL MPV 8.7 Neutrophils % 72 % Lymphocytes % 15 % Monocytes % 7 % Eosinophils % 2 % Basophils % 0 % Neutrophils # 10.5 H (1.3-7.7) k/uL Lymphocytes # 2.2 (1.0-4.8) k/uL Monocytes # 1.0 (0-1.0) k/uL Eosinophils # 0.3 (0-0.7) k/uL Basophils # 0.1 (0-0.2) k/uL PT (9.0-12.0) sec INR (<1.2) APTT (22.0-30.0) sec Sodium (137-145) mmol/L Potassium (3.5-5.1) mmol/L Chloride (98-107) mmol/L Carbon Dioxide (22-30) mmol/L Anion Gap mmol/L BUN (9-20) mg/dL Creatinine (0.66-1.25) mg/dL Est GFR (CKD-EPI)AfAm (>60 ml/min/1.73 sqM) Est GFR (CKD-EPI)NonAf (>60 ml/min/1.73 sqM) Glucose (74-99) mg/dL Calcium (8.4-10.2) mg/dL Total Bilirubin (0.2-1.3) mg/dL AST (17-59) U/L ALT (4-49) U/L Alkaline Phosphatase (38-126) U/L Troponin I (0.000-0.034) ng/mL Total Protein (6.3-8.2) g/dL Albumin (3.5-5.0) g/dL Lipase (23-300) U/L Stool Occult Blood Positive (Negative) Blood Type Blood Type Confirm B Positive Blood Type Recheck Bld Type Recheck Status Antibody Screen Crossmatch Spec Expiration Date 02/21/21 02/21/21 02/21/21 Range/Units 06:58 06:58 06:58 WBC (3.8-10.6) k/uL RBC (4.30-5.90) m/uL Hgb (13.0-17.5) gm/dL Hct (39.0-53.0) % MCV (80.0-100.0) fL MCH (25.0-35.0) pg MCHC (31.0-37.0) g/dL RDW (11.5-15.5) % Plt Count (150-450) k/uL MPV Neutrophils % % Lymphocytes % % Monocytes % % Eosinophils % % Basophils % % Neutrophils # (1.3-7.7) k/uL Lymphocytes # (1.0-4.8) k/uL Monocytes # (0-1.0) k/uL Eosinophils # (0-0.7) k/uL Basophils # (0-0.2) k/uL PT 10.5 (9.0-12.0) sec INR 1.0 (<1.2) APTT 20.8 L (22.0-30.0) sec Sodium 136 L (137-145) mmol/L Potassium 4.1 (3.5-5.1) mmol/L Chloride 109 H (98-107) mmol/L Carbon Dioxide 15 L (22-30) mmol/L Anion Gap 12 mmol/L BUN 29 H (9-20) mg/dL Creatinine 1.16 (0.66-1.25) mg/dL Est GFR (CKD-EPI)AfAm 73 (>60 ml/min/1.73 sqM) Est GFR (CKD-EPI)NonAf 64 (>60 ml/min/1.73 sqM) Glucose 194 H (74-99) mg/dL Calcium 8.2 L (8.4-10.2) mg/dL Total Bilirubin 0.7 (0.2-1.3) mg/dL AST 19 (17-59) U/L ALT 19 (4-49) U/L Alkaline Phosphatase 95 (38-126) U/L Troponin I <0.012 (0.000-0.034) ng/mL Total Protein 5.8 L (6.3-8.2) g/dL Albumin 3.4 L (3.5-5.0) g/dL Lipase 110 (23-300) U/L Stool Occult Blood (Negative) Blood Type Blood Type Confirm Blood Type Recheck Bld Type Recheck Status Antibody Screen Crossmatch Spec Expiration Date 02/21/21 Range/Units 06:59 WBC (3.8-10.6) k/uL RBC (4.30-5.90) m/uL Hgb (13.0-17.5) gm/dL Hct (39.0-53.0) % MCV (80.0-100.0) fL MCH (25.0-35.0) pg MCHC (31.0-37.0) g/dL RDW (11.5-15.5) % Plt Count (150-450) k/uL MPV Neutrophils % % Lymphocytes % % Monocytes % % Eosinophils % % Basophils % % Neutrophils # (1.3-7.7) k/uL Lymphocytes # (1.0-4.8) k/uL Monocytes # (0-1.0) k/uL Eosinophils # (0-0.7) k/uL Basophils # (0-0.2) k/uL PT (9.0-12.0) sec INR (<1.2) APTT (22.0-30.0) sec Sodium (137-145) mmol/L Potassium (3.5-5.1) mmol/L Chloride (98-107) mmol/L Carbon Dioxide (22-30) mmol/L Anion Gap mmol/L BUN (9-20) mg/dL Creatinine (0.66-1.25) mg/dL Est GFR (CKD-EPI)AfAm (>60 ml/min/1.73 sqM) Est GFR (CKD-EPI)NonAf (>60 ml/min/1.73 sqM) Glucose (74-99) mg/dL Calcium (8.4-10.2) mg/dL Total Bilirubin (0.2-1.3) mg/dL AST (17-59) U/L ALT (4-49) U/L Alkaline Phosphatase (38-126) U/L Troponin I (0.000-0.034) ng/mL Total Protein (6.3-8.2) g/dL Albumin (3.5-5.0) g/dL Lipase (23-300) U/L Stool Occult Blood (Negative) Blood Type B Positive Blood Type Confirm Blood Type Recheck No Previous Record Bld Type Recheck Status CABO Indicated Antibody Screen NEGATIVE Crossmatch See Detail Spec Expiration Date 02/24/20212358 Critical Care Time Critical Care Time: Yes Total Critical Care Time: 37 Critical Care Time: Critical care time included initial presentation with history physical evaluation of labs x-rays were ordered. Review of old charting was available discussed with Dr. Baeza as well as Dr. Monique and Dr. Garsia and Sheet as well as the initial report from Dr. Tsang. Also documentation the above. Disposition Clinical Impression: Hematochezia, Lower GI bleed, Anemia, Hypotensive episode Disposition: ADMITTED IP TO THIS [facility] Condition: Serious Referrals: Alex Archer DO [Primary Care Provider] - 1-2 days
[2021-02-21] MEDS ORDERED: NALOXONE 0.4 MG/ML 1 ML VIAL IV PRN (08:37)
[2021-02-21] MEDS ORDERED: NITROGLYCERIN SL TABS 0.4 MG TAB SUBLINGUAL PRN (08:40)
--- NOTE | 2021-02-21 09:21 | XR ---
EXAMINATION TYPE: XR chest 1V portable DATE OF EXAM: 02/21/2021 COMPARISON: 04/04/2018 HISTORY: GI bleed TECHNIQUE: Single frontal view of the chest is obtained. FINDINGS: There is no focal air space opacity, pleural effusion, or pneumothorax seen. The cardiac silhouette size is within normal limits. The osseous structures are intact. IMPRESSION: No acute process.
--- NOTE | 2021-02-21 09:24 | XR ---
Portable KUB. HISTORY: GI bleed. COMPARISON: None. TECHNIQUE: 2 Supine AP views the abdomen were obtained. FINDINGS: In the left abdomen, there are a few mildly dilated loops of small bowel suggestive of partial small bowel obstruction small amount gas is seen within the colon. Allograft there are clips the right uppe r quadrant consistent with cholecystectomy. There is no suspicious calcification. The osseous structures are intact. IMPRESSION: Findings consistent with mild or partial small bowel obstruction.
--- NOTE | 2021-02-21 09:51 | P.HPIM ---
History of Present Illness This is a pleasant 70 years old male with past medical history of coronary artery disease status post stenting, diabetes mellitus, hypertension, ischemic cardiomyopathy, status post pacemaker He is a patient of Dr. Archer. His ride mechanic is Dr. Dela Cruz. He hasn't seen his ride mechanic for a long time Presents because of bloody stool for 2 days. Patient had screening colonoscopy 1 week ago and he underwent polypectomy, and he was doing fine until yesterday when he started having profuse diarrhea and was bloody about 7-8 times per day. Pertinent over the sinus and this morning Patient with no nausea vomiting or abdominal pain He is on baby aspirin 81 mg at home. His stent was more than 2 years ago. He denies smoking, alcohol or illicit drugs On admission patient blood pressure was on the low side 97/65, heart rate 75, saturation 98% on room air and he is afebrile. The tone was mildly hypothermic at 97.2. Currently blood pressure improved to 104/59 Labs showing mild leukocytosis of 14.6, hemoglobin 12.3. Platelet count normal 268 K. INR is normal 1.0. Sodium 136, potassium 4.1, creatinine 1.1. Carbon dioxide is 15. Occult blood in his stool is positive. Glucose 194. Liver enzymes not elevated. Troponin less than 0.012. Patient ordered 2 units of blood transfusion and emergency room. Echocardiogram from 2018 showing ejection fraction of 30-35%. EKG showing sinus rhythm with first-degree AV block, with no significant ST-T changes sizable transfusion patient received 500 mL of normal saline bolus and continued at 200 mL per hour. IV Protonix once Review of Systems CONSTITUTIONAL: No fever, no malaise, no fatigue. HEENT: No recent visual problems or hearing problems. Denied any sore throat. CARDIOVASCULAR: No orthopnea, PND, no palpitations, no syncope. PULMONARY: No shortness of breath, no cough, no hemoptysis. GASTROINTESTINAL: no nausea, no vomiting, no abdominal pain. Normoactive bowel sounds. NEUROLOGICAL: No headaches, no weakness, no numbness. HEMATOLOGICAL: Denies any bleeding or petechiae. GENITOURINARY: Denies any burning micturition, frequency, or urgency. MUSCULOSKELETAL/RHEUMATOLOGICAL: Denies any joint pain, swelling, or any muscle pain. ENDOCRINE: Denies any polyuria or polydipsia. Past Medical History Past Medical History: Coronary Artery Disease (CAD), Diabetes Mellitus, Hypertension, Myocardial Infarction ([place]) Additional Past Medical History / Comment(s): 02/21/18 NSTEMI, ishcemic cardiomyopathy, irregular heart beat-told years ago he needed a pacemaker, NIDDM type II. Last Myocardial Infarction Date:: 02/21/18 History of Any Multi-Drug Resistant Organisms: None Reported Past Surgical History: Cholecystectomy, Heart Catheterization With Stent Additional Past Surgical History / Comment(s): 02/21/18 PCI with stent placement in LAD, pilonidial cyst removed. Past Anesthesia/Blood Transfusion Reactions: No Reported Reaction, Motion Sickness Additional Past Anesthesia/Blood Transfusion Reaction / Comment(s): Pt was a "RH baby" and received multiple blood transfusions as an . Date of Last Stent Placement:: 02/21/18 Past Psychological History: No Psychological Hx Reported Smoking Status: Never smoker Past Alcohol Use History: None Reported Past Drug Use History: None Reported - Past Family History Mother Family Medical History: No Reported History Additional Family Medical History / Comment(s): Pt states mother at the age of 83 yrs from possibly CHF. Father Family Medical History: Dementia Additional Family Medical History / Comment(s): Father at the age of 65yrs from dementia. Medications and Allergies Home Medications Medication Instructions Recorded Confirmed Type Escitalopram [Lexapro] 20 mg PO DAILY 11/21/15 02/21/21 History Aspirin 81 mg PO DAILY 02/20/18 02/21/21 History metFORMIN HCL [Glucophage] 1,000 mg PO DAILY 02/20/18 02/21/21 History Prasugrel [Effient] 10 mg PO DAILY #30 tab 02/21/18 02/21/21 Rx Spironolactone [Aldactone] 25 mg PO DAILY #30 tab 02/21/18 02/21/21 Rx Olmesartan Medoxomil 20 mg PO DAILY 04/04/18 02/21/21 History Atorvastatin Calcium [Lipitor] 80 mg PO DAILY 09/18/18 02/21/21 History carvediloL [Coreg] 6.25 mg PO AC-BID 09/18/18 02/21/21 History Ammonium Lactate Cream [Lac-Hydrin 1 applic TOPICAL DAILY PRN 02/21/21 02/21/21 History 12% Cream] Doxylamine Succinate [Unisom] 50 mg PO HS 02/21/21 02/21/21 History Imiquimod [Aldara] 1 packet TOPICAL MOWEFR 02/21/21 02/21/21 History Nitroglycerin Sl Tabs [Nitrostat] 0.4 mg SL Q5M PRN 02/21/21 02/21/21 History metFORMIN HCL 500 mg PO HS 02/21/21 02/21/21 History Allergies Allergy/AdvReac Type Severity Reaction Status Date / Time No Known Allergies Allergy Verified 02/21/21 09:27 Physical Exam Vitals: Vital Signs Temp Pulse Resp BP Pulse Ox 02/21/21 08:17 97.2 F L 68 18 104/59 99 02/21/21 08:08 97.2 F L 70 18 105/66 100 02/21/21 08:04 97.3 F L 73 18 98/54 100 02/21/21 07:58 97.3 F L 73 18 98/54 100 02/21/21 07:00 68 18 87/56 97 02/21/21 06:50 97.8 F 75 18 97/65 98 Intake and Output 02/20/21 02/21/21 02/21/21 22:59 06:59 14:59 Intake Total 310 Balance 310 Intake: Blood Product 310 Rc As-1 Unit 310 [id number] Other: Weight 127.006 kg GENERAL: The patient is alert and oriented x3, not in any acute distress. Well developed, well nourished. HEENT: Pupils are round and equally reacting to light. EOMI. No scleral icterus. No conjunctival pallor. Normocephalic, atraumatic. No pharyngeal erythema. No thyromegaly. CARDIOVASCULAR: S1 and S2 present. No murmurs, rubs, or gallops. PULMONARY: Chest is clear to auscultation, no wheezing or crackles. ABDOMEN: Soft, nontender, nondistended, normoactive bowel sounds. No palpable organomegaly. MUSCULOSKELETAL: No joint swelling or deformity. EXTREMITIES: No cyanosis, clubbing, or pedal edema. NEUROLOGICAL: Gross neurological examination did not reveal any focal deficits. SKIN: No rashes. No petechiae Results CBC & Chem 7: 02/21/21 06:58 02/21/21 06:58 Labs: Abnormal Lab Results - Last 24 Hours (Table) 02/21/21 02/21/21 02/21/21 Range/Units 06:58 06:58 06:58 WBC 14.6 H (3.8-10.6) k/uL RBC 3.85 L (4.30-5.90) m/uL Hgb 12.3 L (13.0-17.5) gm/dL Hct 35.7 L (39.0-53.0) % Neutrophils # 10.5 H (1.3-7.7) k/uL APTT 20.8 L (22.0-30.0) sec Sodium 136 L (137-145) mmol/L Chloride 109 H (98-107) mmol/L Carbon Dioxide 15 L (22-30) mmol/L BUN 29 H (9-20) mg/dL Glucose 194 H (74-99) mg/dL Calcium 8.2 L (8.4-10.2) mg/dL Total Protein 5.8 L (6.3-8.2) g/dL Albumin 3.4 L (3.5-5.0) g/dL Crossmatch 02/21/21 Range/Units 06:59 WBC (3.8-10.6) k/uL RBC (4.30-5.90) m/uL Hgb (13.0-17.5) gm/dL Hct (39.0-53.0) % Neutrophils # (1.3-7.7) k/uL APTT (22.0-30.0) sec Sodium (137-145) mmol/L Chloride (98-107) mmol/L Carbon Dioxide (22-30) mmol/L BUN (9-20) mg/dL Glucose (74-99) mg/dL Calcium (8.4-10.2) mg/dL Total Protein (6.3-8.2) g/dL Albumin (3.5-5.0) g/dL Crossmatch See Detail Assessment and Plan Assessment: Acute severe GI bleed Acute blood loss anemia secondary to above Hypotension secondary to above History of coronary artery disease status post stenting and pacemaker History of ischemic cardiomyopathy Diabetes mellitus History of hypertension, currently he is hypotensive Obesity with BMI of 33.2 Plan: this is a pleasant 70 years old male who presents with acute GI bleed. Continue with IV Protonix Bowel rest Surgical team consult, critical care team consult Monitor hemoglobin closely Continue with insulin sliding scale, telemetry monitoring Hold antihypertensive medication, aspirin or blood thinners. No NSAIDs Labs and medication were reviewed.. Continue same treatment. Continue with symptomatic treatment. Resume home medication. Monitor lytes and vitals. DVT and GI prophylaxis. Further recommendations depends on the clinical course of the patient DVT prophylaxiNs : no heparin in view of GI bleed GI Prophylaxis: Ppi Prognosis is guarded
[2021-02-21 11:26] LABS: Glucose,Whole Blood 168 mg/dL (75-99)
[2021-02-21 12:04] LABS: Basophils # (A) 0.1 k/uL (0-0.2); Basophils % (A) 0 %; Eosinophils # (A) 0.1 k/uL (0-0.7); Eosinophils % (A) 1 %; HCT 40.5 % (39.0-53.0); HGB 13.4 gm/dL (13.0-17.5); Lymphocytes # (A) 1.3 k/uL (1.0-4.8); Lymphocytes % (A) 9 %; MCH 31.2 pg (25.0-35.0); MCHC 33.1 g/dL (31.0-37.0); MCV 94.1 fL (80.0-100.0); Mean Platelet Volume 7.8; Monocytes # (A) 0.6 k/uL (0-1.0); Monocytes % (A) 4 %; Neutrophils # (A) 12.4 k/uL (1.3-7.7); Neutrophils % (A) 84 %; Platelet Count 219 k/uL (150-450); RBC 4.31 m/uL (4.30-5.90); RDW 14.2 % (11.5-15.5); WBC 14.7 k/uL (3.8-10.6)
[2021-02-21] MEDS: INSULIN ASPART (NovoLOG) 100 UNIT/ML VIAL SQ SCH ×3 (13:15→23:26)
--- NOTE | 2021-02-21 13:30 | P.CNPUL ---
History of Present Illness Consult date: 02/21/21 Chief complaint: GIB History of present illness: 70-year-old male patient, presented to the emergency department because of a lower GI bleed. The patient has been having bloody stool. He underwent a screening colonoscopy approximately a week ago and he underwent a polypectomy and as of yesterday started having increased diarrhea and bloody stool proximately 768 episodes and for that reason he came into the hospital. No abdominal pain. No emesis. No nausea. He has been maintained on baby aspirin 81 mg by mouth. Home regarding previous coronary artery disease and previous coronary stenting. He is known to have multiple medical problems. He is known to have CAD with previous stenting, congestion heart failure with an ejection fraction of 30-35%, diabetes mellitus, hypertension, ischemic cardiomyopathy and the patient has a pacemaker in place. His current EKG showing a sinus rhythm with a first-degree AV block. Upon arrival to the emergency department, the patient was found that hemoglobin of 12.3. His blood pressure was in the low side. He was given a bolus of 500. There is improvement in his blood pressure improved. He received a total of 2 units of packed RBC. Currently is resting comfortably in the intensive care unit. A general surgical consultation has been obtained. He is on NSS @ 100 cc /hr Review of Systems Constitutional: Reports fatigue, Reports weakness Eyes: denies as per HPI, denies blurred vision, denies bulging eye, denies decr eased vision, denies diplopia, denies discharge, denies dry eye, denies irritation, denies itching, denies pain, denies photophobia, denies loss of peripheral vision, denies loss of vision, denies tunnel vision/blind spots Ears: deny: decreased hearing, ear discharge, earache, tinnitus Ears, nose, mouth and throat: Reports as per HPI Breasts: absent: as per HPI, gynecomastia Cardiovascular: Reports decreased exercise tolerance, Reports dyspnea on exertion Respiratory: Reports as per HPI Gastrointestinal: Reports as per HPI, Reports BRBPR Genitourinary: Reports as per HPI Musculoskeletal: Reports as per HPI Musculoskeletal: absent: ankle pain, ankle stiffness, ankle swelling Integumentary: Reports as per HPI Neurological: Reports syncope Psychiatric: Reports as per HPI Endocrine: Reports as per HPI Hematologic/Lymphatic: Reports as per HPI Allergic/Immunologic: Reports as per HPI Past Medical History Past Medical History: Coronary Artery Disease (CAD), Diabetes Mellitus, GI Bleed, Hypertension, Myocardial Infarction ([place]) Additional Past Medical History / Comment(s): 02/21/18 NSTEMI, ishcemic cardiomyopathy, irregular heart beat-told years ago he needed a pacemaker in the future; NIDDM type II. 02/21/21 Admitted for GIB Last Myocardial Infarction Date:: 02/21/18 History of Any Multi-Drug Resistant Organisms: None Reported Past Surgical History: Cholecystectomy, Heart Catheterization With Stent Additional Past Surgical History / Comment(s): 02/21/18 PCI with stent placement in LAD, pilonidial cyst removed. 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 Date of Last Stent Placement:: 02/21/18 Past Psychological History: No Psychological Hx Reported Additional Psychological History / Comment(s): Pt resides with his spouse. He is independent. Smoking Status: Never smoker Past Alcohol Use History: None Reported Additional Past Alcohol Use History / Comment(s): Pt quit smoking in 2015. Past Drug Use History: None Reported - Past Family History Mother Family Medical History: No Reported History Additional Family Medical History / Comment(s): Pt states mother at the age of 83 yrs from possibly CHF. Father Family Medical History: Dementia Additional Family Medical History / Comment(s): Father at the age of 65yrs from dementia. Medications and Allergies Home Medications Medication Instructions Recorded Confirmed Type Escitalopram [Lexapro] 20 mg PO DAILY 11/21/15 02/21/21 History Aspirin 81 mg PO DAILY 02/20/18 02/21/21 History metFORMIN HCL [Glucophage] 1,000 mg PO DAILY 02/20/18 02/21/21 History Prasugrel [Effient] 10 mg PO DAILY #30 tab 02/21/18 02/21/21 Rx Spironolactone [Aldactone] 25 mg PO DAILY #30 tab 02/21/18 02/21/21 Rx Olmesartan Medoxomil 20 mg PO DAILY 04/04/18 02/21/21 History Atorvastatin Calcium [Lipitor] 80 mg PO DAILY 09/18/18 02/21/21 History carvediloL [Coreg] 6.25 mg PO AC-BID 09/18/18 02/21/21 History Ammonium Lactate Cream [Lac-Hydrin 1 applic TOPICAL DAILY PRN 02/21/21 02/21/21 History 12% Cream] Doxylamine Succinate [Unisom] 50 mg PO HS 02/21/21 02/21/21 History Imiquimod [Aldara] 1 packet TOPICAL MOWEFR 02/21/21 02/21/21 History Nitroglycerin Sl Tabs [Nitrostat] 0.4 mg SL Q5M PRN 02/21/21 02/21/21 History metFORMIN HCL 500 mg PO HS 02/21/21 02/21/21 History Allergies Allergy/AdvReac Type Severity Reaction Status Date / Time No Known Allergies Allergy Verified 02/21/21 09:27 Physical Exam Vitals: Vital Signs Temp Pulse Pulse Resp BP BP Pulse Ox 02/21/21 13:10 71 9 L 110/62 99 02/21/21 13:00 70 8 L 105/61 99 02/21/21 12:50 72 14 105/61 98 02/21/21 12:40 69 8 L 109/62 99 02/21/21 12:30 69 8 L 113/61 99 02/21/21 12:20 70 16 113/61 99 02/21/21 12:10 70 12 108/64 100 02/21/21 12:00 97.7 F 70 8 L 99/39 100 02/21/21 11:50 96.4 F L 69 72 12 99/39 122/74 100 02/21/21 11:40 71 9 L 122/74 99 02/21/21 11:30 96.4 F L 70 13 122/74 99 02/21/21 11:28 98 02/21/21 11:11 97.7 F 73 16 106/64 100 02/21/21 11:00 97.7 F 73 16 106/64 100 02/21/21 10:58 97.7 F 70 16 106/62 99 02/21/21 10:00 97.2 F L 68 67 H 111/62 100 02/21/21 09:19 97.2 F L 68 18 106/64 100 02/21/21 09:00 97.3 F L 65 18 106/63 100 02/21/21 08:56 97.3 F L 65 18 106/63 100 02/21/21 08:49 97.3 F L 65 18 106/63 100 02/21/21 08:39 97.3 F L 63 18 107/63 02/21/21 08:17 97.2 F L 68 18 104/59 99 02/21/21 08:08 97.2 F L 70 18 105/66 100 02/21/21 08:04 97.3 F L 73 18 98/54 100 02/21/21 07:58 97.3 F L 73 18 98/54 100 02/21/21 07:00 68 18 87/56 97 02/21/21 06:50 97.8 F 75 18 97/65 98 Intake and Output 02/20/21 02/21/21 02/21/21 22:59 06:59 14:59 Intake Total 820 Output Total 0 Balance 820 Intake: Intake, IV Titration 200 Amount Sodium Chloride 0.9% 1, 200 000 ml @ 100 mls/hr IV . Q10H STA Rx#:[id number] Blood Product 620 Rc As-1 Unit 310 [id number] Rc As-1 Unit 310 [id number] Output: Urine 0 Other: Voiding Method Urinal # Voids 0 Weight 127.006 kg 127.006 kg The patient appeared well nourished and normally developed. Vital signs as docu mented. Head exam is unremarkable. No scleral icterus or corneal arcus noted. Neck is without jugular venous distension, thyromegaly, or carotid bruits. Carotid upstrokes are brisk bilaterally. Lungs are clear to auscultation and percussion. Cardiac exam reveals the PMI to be normally sized and situated. Rhythm is regular. First and second heart sounds normal. No murmurs, rubs or gallops. Abdominal exam reveals normal bowel sounds, no masses, no organomegaly and no aortic enlargement. Extremities are nonedematous and both femoral and pedal pulses are normal. Examination of the skin revealed no evidence of significant rashes, suspicious appearing nevi or other concerning lesions.Neurologically, the patient is awake and alert and the patient does not have any focal neurological deficit. Cranial nerves are essentially intact. Results - Laboratory Findings CBC and BMP: 02/21/21 11:33 02/21/21 06:58 PT/INR, D-dimer PT 10.5 sec (9.0-12.0) 02/21/21 06:58 INR 1.0 (<1.2) 02/21/21 06:58 Abnormal lab findings: Abnormal Labs 02/21/21 02/21/21 02/21/21 06:58 06:58 06:58 WBC 14.6 H RBC 3.85 L Hgb 12.3 L Hct 35.7 L Neutrophils # 10.5 H APTT 20.8 L Sodium 136 L Chloride 109 H Carbon Dioxide 15 L BUN 29 H Glucose 194 H POC Glucose (mg/dL) Calcium 8.2 L Total Protein 5.8 L Albumin 3.4 L Crossmatch 02/21/21 02/21/21 02/21/21 06:59 11:25 11:33 WBC 14.7 H RBC Hgb Hct Neutrophils # 12.4 H APTT Sodium Chloride Carbon Dioxide BUN Glucose POC Glucose (mg/dL) 168 H Calcium Total Protein Albumin Crossmatch See Detail Assessment and Plan Plan: 1 acute lower GI bleed, post colonoscopy and polypectomy. Patient presented with and without instability, hypotension, syncope and received a total of 2 units of packed RBC and a liter of normal saline currently on a maintenance of 100 mL an hour. Hemodynamically stable. No further episodes since he came in to the ICU. Gen surgery consultation has been obtained, and the patient was taken a combination of aspirin and Effient on outpatient basis 2 coronary artery disease with previous coronary stenting 3 ischemic cardiomyopathy with ejection fraction of 3035% 4 history of diabetes mellitus 5 HTN 6 non-anion gap metabolic acidosis as noted on his blood work and a serum bicarb of 15 7 hypotension, recovered. 8 hyperlipidemia Plan Continue IV fluids, normal saline at the rate of 100 mL an hour Monitor the hemoglobin Keep nothing by mouth for now until the patient seen by Dr. Baeza from general surgery Stop aspirin Stop Effient Insulin coverage SS Possible colonoscopy if recurrent bleeding
--- NOTE | 2021-02-21 14:29 | P.GSCN ---
History of Present Illness Consult date: 02/21/21 History of present illness: 70-year-old male presented to the emergency department with complaints of significant bleeding per rectum. He states that his bleeding started yesterday morning and continued throughout the day. He states that he believes it was a significant amount of blood. He states that at 6 AM this morning, he began feeling lightheaded and also had a large bloody bowel movement. On arrival to the emergency department, patient was noted to be hypotensive with systolic pressure in the 80s. Secondary to this, patient was given 2 units of packed red blood cells and admitted to the ICU. Since that time, patient's systolic blood pressure has increased to the 110s. Patient is currently hemodynamically stable and has responded well to the blood transfusion. Patient states that since 6 AM, he has not had any bowel movement. He denies any abdominal pain. Notably, patient did have a colonoscopy by myself on 02/13/2021. At that time an ascen ding colon polyp was found and removed with hot snare polypectomy. He denies having any bleeding over the week since the procedure, until this event. He does take Effient as an anticoagulant secondary to cardiac stents in the past. Review of Systems All systems: negative Past Medical History Past Medical History: Coronary Artery Disease (CAD), Diabetes Mellitus, GI Bleed, Hypertension, Myocardial Infarction (IA) Additional Past Medical History / Comment(s): 02/21/18 NSTEMI, ishcemic cardio myopathy, irregular heart beat-told years ago he needed a pacemaker in the future; NIDDM type II. 02/21/21 Admitted for GIB Last Myocardial Infarction Date:: 02/21/18 History of Any Multi-Drug Resistant Organisms: None Reported Past Surgical History: Cholecystectomy, Heart Catheterization With Stent Additional Past Surgical History / Comment(s): 02/21/18 PCI with stent placement in LAD, pilonidial cyst removed. 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 Date of Last Stent Placement:: 02/21/18 Past Psychological History: No Psychological Hx Reported Additional Psychological History / Comment(s): Pt resides with his spouse. He is independent. Smoking Status: Never smoker Past Alcohol Use History: None Reported Additional Past Alcohol Use History / Comment(s): Pt quit smoking in 2016. Past Drug Use History: None Reported - Past Family History Mother Family Medical History: No Reported History Additional Family Medical History / Comment(s): Pt states mother at the age of 83 yrs from possibly CHF. Father Family Medical History: Dementia Additional Family Medical History / Comment(s): Father at the age of 65yrs from dementia. Medications and Allergies Home Medications Medication Instructions Recorded Confirmed Type Escitalopram [Lexapro] 20 mg PO DAILY 11/21/15 02/21/21 History Aspirin 81 mg PO DAILY 02/20/18 02/21/21 History metFORMIN HCL [Glucophage] 1,000 mg PO DAILY 02/20/18 02/21/21 History Prasugrel [Effient] 10 mg PO DAILY #30 tab 02/21/18 02/21/21 Rx Spironolactone [Aldactone] 25 mg PO DAILY #30 tab 02/21/18 02/21/21 Rx Olmesartan Medoxomil 20 mg PO DAILY 04/04/18 02/21/21 History Atorvastatin Calcium [Lipitor] 80 mg PO DAILY 09/18/18 02/21/21 History carvediloL [Coreg] 6.25 mg PO AC-BID 09/18/18 02/21/21 History Ammonium Lactate Cream [Lac-Hydrin 1 applic TOPICAL DAILY PRN 02/21/21 02/21/21 History 12% Cream] Doxylamine Succinate [Unisom] 50 mg PO HS 02/21/21 02/21/21 History Imiquimod [Aldara] 1 packet TOPICAL MOWEFR 02/21/21 02/21/21 History Nitroglycerin Sl Tabs [Nitrostat] 0.4 mg SL Q5M PRN 02/21/21 02/21/21 History metFORMIN HCL 500 mg PO HS 02/21/21 02/21/21 History Allergies Allergy/AdvReac Type Severity Reaction Status Date / Time No Known Allergies Allergy Verified 02/21/21 09:27 Surgical - Exam Osteopathic Statement: *. No significant issues noted on an osteopathic structural exam other than those noted in the History and Physical/Consult. Vital Signs Temp Pulse Resp BP Pulse Ox 97.8 F 75 18 97/65 98 02/21/21 06:50 02/21/21 06:50 02/21/21 06:50 02/21/21 06:50 02/21/21 06:50 - General well nourished, no distress - Eyes PERRL - ENT no hearing loss - Neck trachea midline - Abdomen Abdomen: soft, non tender - Psychiatric oriented to time, oriented to person, oriented to place Results - Labs 02/21/21 11:33 02/21/21 06:58 Abnormal Lab Results - Last 24 Hours (Table) 02/21/21 02/21/21 02/21/21 Range/Units 06:58 06:58 06:58 WBC 14.6 H (3.8-10.6) k/uL RBC 3.85 L (4.30-5.90) m/uL Hgb 12.3 L (13.0-17.5) gm/dL Hct 35.7 L (39.0-53.0) % Neutrophils # 10.5 H (1.3-7.7) k/uL APTT 20.8 L (22.0-30.0) sec Sodium 136 L (137-145) mmol/L Chloride 109 H (98-107) mmol/L Carbon Dioxide 15 L (22-30) mmol/L BUN 29 H (9-20) mg/dL Glucose 194 H (74-99) mg/dL POC Glucose (mg/dL) (75-99) mg/dL Calcium 8.2 L (8.4-10.2) mg/dL Total Protein 5.8 L (6.3-8.2) g/dL Albumin 3.4 L (3.5-5.0) g/dL Crossmatch 02/21/21 02/21/21 02/21/21 Range/Units 06:59 11:25 11:33 WBC 14.7 H (3.8-10.6) k/uL RBC (4.30-5.90) m/uL Hgb (13.0-17.5) gm/dL Hct (39.0-53.0) % Neutrophils # 12.4 H (1.3-7.7) k/uL APTT (22.0-30.0) sec Sodium (137-145) mmol/L Chloride (98-107) mmol/L Carbon Dioxide (22-30) mmol/L BUN (9-20) mg/dL Glucose (74-99) mg/dL POC Glucose (mg/dL) 168 H (75-99) mg/dL Calcium (8.4-10.2) mg/dL Total Protein (6.3-8.2) g/dL Albumin (3.5-5.0) g/dL Crossmatch See Detail Diabetes panel 02/21/21 Range/Units 06:58 Sodium 136 L (137-145) mmol/L Potassium 4.1 (3.5-5.1) mmol/L Chloride 109 H (98-107) mmol/L Carbon Dioxide 15 L (22-30) mmol/L BUN 29 H (9-20) mg/dL Creatinine 1.16 (0.66-1.25) mg/dL Glucose 194 H (74-99) mg/dL Calcium 8.2 L (8.4-10.2) mg/dL AST 19 (17-59) U/L ALT 19 (4-49) U/L Alkaline Phosphatase 95 (38-126) U/L Total Protein 5.8 L (6.3-8.2) g/dL Albumin 3.4 L (3.5-5.0) g/dL Calcium panel 02/21/21 Range/Units 06:58 Calcium 8.2 L (8.4-10.2) mg/dL Albumin 3.4 L (3.5-5.0) g/dL Pituitary panel 02/21/21 Range/Units 06:58 Sodium 136 L (137-145) mmol/L Potassium 4.1 (3.5-5.1) mmol/L Chloride 109 H (98-107) mmol/L Carbon Dioxide 15 L (22-30) mmol/L BUN 29 H (9-20) mg/dL Creatinine 1.16 (0.66-1.25) mg/dL Glucose 194 H (74-99) mg/dL Calcium 8.2 L (8.4-10.2) mg/dL Adrenal panel 02/21/21 Range/Units 06:58 Sodium 136 L (137-145) mmol/L Potassium 4.1 (3.5-5.1) mmol/L Chloride 109 H (98-107) mmol/L Carbon Dioxide 15 L (22-30) mmol/L BUN 29 H (9-20) mg/dL Creatinine 1.16 (0.66-1.25) mg/dL Glucose 194 H (74-99) mg/dL Calcium 8.2 L (8.4-10.2) mg/dL Total Bilirubin 0.7 (0.2-1.3) mg/dL AST 19 (17-59) U/L ALT 19 (4-49) U/L Alkaline Phosphatase 95 (38-126) U/L Total Protein 5.8 L (6.3-8.2) g/dL Albumin 3.4 L (3.5-5.0) g/dL Assessment and Plan Plan: 70-year-old male with GI bleed, possibly from site of polypectomy 1 week ago. At this time, does appear that the patient's bleeding has slowed down. Last hemoglobin recorded is 13.4 from this morning after packed red blood cells were administered. He is hemodynamically stable. I would recommend holding anticoagulation at this time. We will keep the patient nothing by mouth at this time. I did recommend GI evaluation, however GI services are unavailable at this time at this institution. We will continue to monitor and make recomme ndations based on the patient's clinical progress.
[2021-02-21 16:36] LABS: Glucose,Whole Blood 121 mg/dL (75-99)
[2021-02-21 16:59] LABS: HCT 37.8 % (39.0-53.0); HGB 13.1 gm/dL (13.0-17.5); MCH 32.2 pg (25.0-35.0); MCHC 34.6 g/dL (31.0-37.0); MCV 93.1 fL (80.0-100.0); Mean Platelet Volume 7.4; Platelet Count 211 k/uL (150-450); RBC 4.06 m/uL (4.30-5.90); RDW 14.7 % (11.5-15.5); WBC 10.5 k/uL (3.8-10.6)
[2021-02-21] MEDS: PANTOPRAZOLE 40 MG/10 ML VIAL IVP SCH (19:53)
[2021-02-21 23:27] LABS: Glucose,Whole Blood 108 mg/dL (75-99)
[2021-02-21 23:31] LABS: HCT 36.8 % (39.0-53.0); HGB 12.8 gm/dL (13.0-17.5); MCH 32.3 pg (25.0-35.0); MCHC 34.7 g/dL (31.0-37.0); MCV 92.9 fL (80.0-100.0); Mean Platelet Volume 8.4; Platelet Count 194 k/uL (150-450); RBC 3.96 m/uL (4.30-5.90); RDW 14.6 % (11.5-15.5); WBC 11.9 k/uL (3.8-10.6)
[2021-02-22 05:06] LABS: ALT 16 U/L (4-49); AST 17 U/L (17-59); African American GFR (CKD) >90 (>60 ml/min/1.73 sqM); Albumin 3.1 g/dL (3.5-5.0); Alkaline Phosphatase 86 U/L (38-126); Anion Gap 6 mmol/L; Blood Urea Nitrogen 21 mg/dL (9-20); Calcium 7.9 mg/dL (8.4-10.2); Carbon Dioxide 21 mmol/L (22-30); Chloride 109 mmol/L (98-107); Glucose 133 mg/dL (74-99); Non-African American GFR(CKD) 78 (>60 ml/min/1.73 sqM); Potassium 4.5 mmol/L (3.5-5.1); Sodium 136 mmol/L (137-145); Total Bilirubin 0.8 mg/dL (0.2-1.3); Total Protein 5.5 g/dL (6.3-8.2)
[2021-02-22 05:19] LABS: HCT 34.6 % (39.0-53.0); MCH 32.4 pg (25.0-35.0); MCHC 34.8 g/dL (31.0-37.0); MCV 93.1 fL (80.0-100.0); Mean Platelet Volume 8.3; Platelet Count 197 k/uL (150-450); RBC 3.72 m/uL (4.30-5.90); RDW 14.5 % (11.5-15.5); WBC 10.1 k/uL (3.8-10.6)
[2021-02-22] MEDS: INSULIN ASPART (NovoLOG) 100 UNIT/ML VIAL SQ SCH ×3 (05:42→18:05)
--- NOTE | 2021-02-22 09:18 | P.PN ---
Subjective Progress Note Date: 02/22/21 70-year-old male patient, presented to the emergency department because of a lower GI bleed. The patient has been having bloody stool. He underwent a screening colonoscopy approximately a week ago and he underwent a polypectomy and as of yesterday started having increased diarrhea and bloody stool prox imately 768 episodes and for that reason he came into the hospital. No abdominal pain. No emesis. No nausea. He has been maintained on baby aspirin 81 mg by mouth. Home regarding previous coronary artery disease and previous coronary stenting. He is known to have multiple medical problems. He is known to have CAD with previous stenting, congestion heart failure with an ejection fraction of 30-35%, diabetes mellitus, hypertension, ischemic cardiomyopathy and the patient has a pacemaker in place. His current EKG showing a sinus rhythm with a first-degree AV block. Upon arrival to the emergency department, the patient was found that hemoglobin of 12.3. His blood pressure was in the low side. He was given a bolus of 500. There is improvement in his blood pressure improved. He received a total of 2 units of packed RBC. Currently is resting comfortably in the intensive care unit. A general surgical consultation has been obtained. He is on NSS @ 100 cc /hr 02/22/2021, THE PATIENT IS BEING SEEN IN FOLLOW-UP IN THE INTENSIVE CARE UNIT. UNFORTUNATELY, THE PATIENT HAD THE BOUT OF BLOODY movements yesterday evening earlier this morning. Another bout of a large bloody bowel movement there was bright red blood. It the patient continues to have stable vital signs. No tachycardia. No chest pain. No syncope.12.0. This blood test was done prior to his left total GI bleed. Rest of the electrodes are all stable. BUN is at 21 with a creatinine of 0.9. Electrolytes are normal. Patient currently off aspirin and off Effient. No nausea. No vomiting. No abdominal pain. He is back on being by mouth. IV fluids is running at the rate of 100 mL an hour normal saline. Objective - Vital Signs Vital signs: Vital Signs Temp 97.6 F 02/22/21 08:00 Pulse 79 02/22/21 09:00 Resp 11 L 02/22/21 09:00 BP 119/67 02/22/21 09:00 Pulse Ox 97 02/22/21 09:00 Intake & Output 02/21/21 02/22/2121 18:59 06:59 18:59 Intake Total 1320 1120 40 Output Total 300 475 500 Balance 1020 645 -460 Weight 127.006 kg 131.9 kg Intake: IV 1020 40 Sodium Chloride 0.9% 1, 1020 40 000 ml @ 100 mls/hr IV . Q10H [facility] Rx#:[id number] Intake, IV Titration 700 100 Amount Sodium Chloride 0.9% 1, 700 100 000 ml @ 100 mls/hr IV . Q10H [facility] Rx#:[id number] Blood Product 620 Rc As-1 Unit 310 [id number] Rc As-1 Unit 310 [id number] Output: Urine 300 475 500 Other: Voiding Method Urinal Urinal Urinal # Voids 0 1 0 # Bowel Movements 1 - Exam The patient appeared well nourished and normally developed. Vital signs as documented. Head exam is unremarkable. No scleral icterus or corneal arcus noted. Neck is without jugular venous distension, thyromegaly, or carotid bruits. Carotid upstrokes are brisk bilaterally. Lungs are clear to auscultation and percussion. Cardiac exam reveals the PMI to be normally sized and situated. Rhythm is regular. First and second heart sounds normal. No murmurs, rubs or gallops. Abdominal exam reveals normal bowel sounds, no masses, no organomegaly and no aortic enlargement. Extremities are nonedematous and both femoral and pedal pulses are normal. Examination of the skin revealed no evidence of significant rashes, suspicious appearing nevi or other concerning lesions.Neurologically, the patient is awake and alert and the patient does not have any focal neurological deficit. Cranial nerves are essentially intact. - Labs CBC & Chem 7: 02/22/21 04:24 02/22/21 04:24 Labs: Abnormal Lab Results - Last 24 Hours (Table) 02/21/21 02/21/21 02/21/21 Range/Units 06:59 11:25 11:33 WBC 14.7 H (3.8-10.6) k/uL RBC (4.30-5.90) m/uL Hgb (13.0-17.5) gm/dL Hct (39.0-53.0) % Neutrophils # 12.4 H (1.3-7.7) k/uL Sodium (137-145) mmol/L Chloride (98-107) mmol/L Carbon Dioxide (22-30) mmol/L BUN (9-20) mg/dL Glucose (74-99) mg/dL POC Glucose (mg/dL) 168 H (75-99) mg/dL Calcium (8.4-10.2) mg/dL Total Protein (6.3-8.2) g/dL Albumin (3.5-5.0) g/dL Crossmatch See Detail 02/21/21 02/21/21 02/21/21 Range/Units 16:24 16:37 23:20 WBC 11.9 H (3.8-10.6) k/uL RBC 4.06 L 3.96 L (4.30-5.90) m/uL Hgb 12.8 L (13.0-17.5) gm/dL Hct 37.8 L 36.8 L (39.0-53.0) % Neutrophils # (1.3-7.7) k/uL Sodium (137-145) mmol/L Chloride (98-107) mmol/L Carbon Dioxide (22-30) mmol/L BUN (9-20) mg/dL Glucose (74-99) mg/dL POC Glucose (mg/dL) 121 H (75-99) mg/dL Calcium (8.4-10.2) mg/dL Total Protein (6.3-8.2) g/dL Albumin (3.5-5.0) g/dL Crossmatch 02/21/21 02/22/21 02/22/21 Range/Units 23:25 04:24 04:24 WBC (3.8-10.6) k/uL RBC 3.72 L (4.30-5.90) m/uL Hgb 12.0 L (13.0-17.5) gm/dL Hct 34.6 L (39.0-53.0) % Neutrophils # (1.3-7.7) k/uL Sodium 136 L (137-145) mmol/L Chloride 109 H (98-107) mmol/L Carbon Dioxide 21 L (22-30) mmol/L BUN 21 H (9-20) mg/dL Glucose 133 H (74-99) mg/dL POC Glucose (mg/dL) 108 H (75-99) mg/dL Calcium 7.9 L (8.4-10.2) mg/dL Total Protein 5.5 L (6.3-8.2) g/dL Albumin 3.1 L (3.5-5.0) g/dL Crossmatch Assessment and Plan Plan: 1 acute lower GI bleed, post colonoscopy and polypectomy. Patient presented with and without instability, hypotension, syncope and received a total of 2 units of packed RBC and a liter of normal saline currently on a maintenance of 100 mL an hour. Hemodynamically stable. The patient had 2 rule out a bl eeding(yesterday, one overnight and one earlier this morning. Hemoglobin from today was 12 and obviously the hemoglobin needs to be repeated post this ongoing GI bleed. He is currently nothing by mouth. Gen. surgery will be made aware of this ongoing bleeding. 2 coronary artery disease with previous coronary stenting 3 ischemic cardiomyopathy with ejection fraction of 3035% 4 history of diabetes mellitus 5 HTN 6 non-anion gap metabolic acidosis recovered, serum bicarb from today is up to 21. 7 hypotension, recovered. 8 hyperlipidemia Plan Continue IV fluids, normal saline at the rate of 100 mL an hour Monitor the hemoglobin, repeat hemoglobin for now Keep nothing by mouth for now I will discuss the case Dr. Baeza from general surgery, would likely need a colonoscopy to evaluate the source of bleed and possibly control the bleeding site. Stop aspirin Stop Effient Insulin coverage SS We'll keep the patient intensive care unit for now.
[2021-02-22] MEDS: PANTOPRAZOLE 40 MG/10 ML VIAL IVP SCH ×2 (09:34→20:24)
[2021-02-22 10:03] LABS: HCT 35.4 % (39.0-53.0); HGB 12.3 gm/dL (13.0-17.5); MCH 32.4 pg (25.0-35.0); MCHC 34.8 g/dL (31.0-37.0); MCV 93.1 fL (80.0-100.0); Mean Platelet Volume 9.9; Platelet Count 187 k/uL (150-450); RDW 14.6 % (11.5-15.5); WBC 9.9 k/uL (3.8-10.6)
--- NOTE | 2021-02-22 10:39 | P.PN ---
Subjective Progress Note Date: 02/22/21 Patient seen and examined at bedside. Patient has had 2 more bloody bowel movements. He states that his last 3 bowel movements have been at 6 AM on 02/21/2021, then midnight on 02/22/2021 and then again at 9 AM on 02/22/2021. He states that compared to the amount of bowel movements he was having prior to his presentation, the number of bowel movements have slowed. He still states that there is bright red blood in these bowel movements. Hemoglobin has been followed and is currently running in the 12's over the last 3 draws. Most recent draw is within the last half hour. He has had no significant vital sign changes. No tachycardia or no hypotension. His anticoagulation has been held for approximately 36 hours at this point. Objective - Vital Signs Vital signs: Vital Signs Temp 97.6 F 02/22/21 08:00 Pulse 77 02/22/21 10:00 Resp 21 02/22/21 10:00 BP 111/84 02/22/21 10:00 Pulse Ox 96 02/22/21 10:00 Intake & Output 02/21/21 02/22/21 02/22/21 18:59 06:59 18:59 Intake Total 1320 1120 40 Output Total 300 475 500 Balance 1020 645 -460 Weight 127.006 kg 131.9 kg Intake: IV 1020 40 Sodium Chloride 0.9% 1, 1020 40 000 ml @ 100 mls/hr IV . Q10H [facility] Rx#:[id number] Intake, IV Titration 700 100 0 Amount Lactated Ringers 1,000 ml 0 @ 75 mls/hr IV .[id number] [facility] Rx#:[id number] Sodium Chloride 0.9% 1, 700 100 000 ml @ 100 mls/hr IV . Q10H [facility] Rx#:[id number] Blood Product 620 Rc As-1 Unit 310 [id number] Rc As-1 Unit 310 [id number] Output: Urine 300 475 500 Other: Voiding Method Urinal Urinal Urinal # Voids 0 1 0 # Bowel Movements 1 1 - Constitutional General appearance: Present: cooperative, no acute distress - Gastrointestinal Gastrointestinal Comment(s): Soft, nontender, nondistended, no rebound, no guarding - Psychiatric Psychiatric: Present: A&O x's 3 - Labs CBC & Chem 7: 02/22/21 09:53 02/22/21 04:24 Labs: Abnormal Lab Results - Last 24 Hours (Table) 02/21/21 02/21/21 02/21/21 Range/Units 06:59 11:25 11:33 WBC 14.7 H (3.8-10.6) k/uL RBC (4.30-5.90) m/uL Hgb (13.0-17.5) gm/dL Hct (39.0-53.0) % Neutrophils # 12.4 H (1.3-7.7) k/uL Sodium (137-145) mmol/L Chloride (98-107) mmol/L Carbon Dioxide (22-30) mmol/L BUN (9-20) mg/dL Glucose (74-99) mg/dL POC Glucose (mg/dL) 168 H (75-99) mg/dL Calcium (8.4-10.2) mg/dL Total Protein (6.3-8.2) g/dL Albumin (3.5-5.0) g/dL Crossmatch See Detail 02/21/21 02/21/21 02/21/21 Range/Units 16:24 16:37 23:20 WBC 11.9 H (3.8-10.6) k/uL RBC 4.06 L 3.96 L (4.30-5.90) m/uL Hgb 12.8 L (13.0-17.5) gm/dL Hct 37.8 L 36.8 L (39.0-53.0) % Neutrophils # (1.3-7.7) k/uL Sodium (137-145) mmol/L Chloride (98-107) mmol/L Carbon Dioxide (22-30) mmol/L BUN (9-20) mg/dL Glucose (74-99) mg/dL POC Glucose (mg/dL) 121 H (75-99) mg/dL Calcium (8.4-10.2) mg/dL Total Protein (6.3-8.2) g/dL Albumin (3.5-5.0) g/dL Crossmatch 02/21/21 02/22/21 02/22/21 Range/Units 23:25 04:24 04:24 WBC (3.8-10.6) k/uL RBC 3.72 L (4.30-5.90) m/uL Hgb 12.0 L (13.0-17.5) gm/dL Hct 34.6 L (39.0-53.0) % Neutrophils # (1.3-7.7) k/uL Sodium 136 L (137-145) mmol/L Chloride 109 H (98-107) mmol/L Carbon Dioxide 21 L (22-30) mmol/L BUN 21 H (9-20) mg/dL Glucose 133 H (74-99) mg/dL POC Glucose (mg/dL) 108 H (75-99) mg/dL Calcium 7.9 L (8.4-10.2) mg/dL Total Protein 5.5 L (6.3-8.2) g/dL Albumin 3.1 L (3.5-5.0) g/dL Crossmatch 02/22/21 Range/Units 09:53 WBC (3.8-10.6) k/uL RBC 3.80 L (4.30-5.90) m/uL Hgb 12.3 L (13.0-17.5) gm/dL Hct 35.4 L (39.0-53.0) % Neutrophils # (1.3-7.7) k/uL Sodium (137-145) mmol/L Chloride (98-107) mmol/L Carbon Dioxide (22-30) mmol/L BUN (9-20) mg/dL Glucose (74-99) mg/dL POC Glucose (mg/dL) (75-99) mg/dL Calcium (8.4-10.2) mg/dL Total Protein (6.3-8.2) g/dL Albumin (3.5-5.0) g/dL Crossmatch Assessment and Plan Plan: 70-year-old male with GI bleed. Possibly secondary to polypectomy from colonoscopy performed on 02/13/2021. Amount of bloody bowel movements has slowed, however still present. Hemoglobin has been followed and is stable in the 12's over the last 3 draws. No hypertension and no tachycardia. At this point, it does appear that the GI bleeding is slowing. We will continue to evaluate the effects of holding anticoagulation. Continue to monitor vital signs and every 6 hemoglobin checks. GI services are unavailable today at this facility. Continue nothing by mouth at this time. We'll closely monitor and make any procedural decisions based on patient's clinical progress.
[2021-02-22] MEDS: LACTATED RINGERS 1,000 ML IV SCH (10:40)
[2021-02-22 11:45] LABS: Glucose,Whole Blood 138 mg/dL (75-99)
[2021-02-22 15:10] LABS: HCT 33.4 % (39.0-53.0); HGB 11.6 gm/dL (13.0-17.5); MCH 32.4 pg (25.0-35.0); MCHC 34.8 g/dL (31.0-37.0); Mean Platelet Volume 7.2; Platelet Count 233 k/uL (150-450); RBC 3.59 m/uL (4.30-5.90); RDW 14.9 % (11.5-15.5)
[2021-02-22 17:58] LABS: Glucose,Whole Blood 115 mg/dL (75-99)
--- NOTE | 2021-02-22 18:55 | P.PN ---
Subjective This is a pleasant 70 years old male with past medical history of coronary artery disease status post stenting, diabetes mellitus, hypertension, ischemic cardiomyopathy, status post pacemaker He is a patient of Dr. Archer. His curtain hemmer automatic is Dr. Dela Cruz. He hasn't seen his curtain hemmer automatic for a long time Presents because of bloody stool for 2 days. Patient had screening colonoscopy 1 week ago and he underwent polypectomy, and he was doing fine until yesterday when he started having profuse diarrhea and was bloody about 7-8 times per day. Pertinent over the sinus and this morning Patient with no nausea vomiting or abdominal pain He is on baby aspirin 81 mg at home. His stent was more than 2 years ago. He denies smoking, alcohol or illicit drugs On admission patient blood pressure was on the low side 97/65, heart rate 75, saturation 98% on room air and he is afebrile. The tone was mildly hypothermic at 97.2. Currently blood pressure improved to 104/59 Labs showing mild leukocytosis of 14.6, hemoglobin 12.3. Platelet count normal 268 K. INR is normal 1.0. Sodium 136, potassium 4.1, creatinine 1.1. Carbon dioxide is 15. Occult blood in his stool is positive. Glucose 194. Liver enzymes not elevated. Troponin less than 0.012. Patient ordered 2 units of blood transfusion and emergency room. Echocardiogram from 2018 showing ejection fraction of 30-35%. EKG showing sinus rhythm with first-degree AV block, with no significant ST-T changes sizable transfusion patient received 500 mL of normal saline bolus and continued at 200 mL per hour. IV Protonix once 02/22/2021 Patient presents with lower GI bleed after colonoscopy done one week earlier and polypectomy. His aspirin on admission was held. Received 2 units of blood transfusion on admission Last night and this morning had 2 episodes of good amount of bloody bowel movement. However he denies any other symptoms, he is fully awake and oriented, comfortable in bed. No abdominal pain or diarrhea or vomiting. No chest pain or dyspnea. Surgery team R following the case closely Review of Systems CONSTITUTIONAL: No fever, no malaise, no fatigue. HEENT: No recent visual problems or hearing problems. Denied any sore throat. CARDIOVASCULAR: No orthopnea, PND, no palpitations, no syncope. PULMONARY: No shortness of breath, no cough, no hemoptysis. GASTROINTESTINAL: no nausea, no vomiting, no abdominal pain. Normoactive bowel sounds. NEUROLOGICAL: No headaches, no weakness, no numbness. Active Medications Generic Name Dose Route Start Last Admin Trade Name Freestiven PRN Reason Stop Dose Admin Lactated Ringer's 1,000 mls @ 75 mls/hr 02/22/21 10:00 02/22/21 10:40 Lactated Ringers IV 75 mls/hr .[id number] [facility] Administration Insulin Aspart 0 unit 02/22/21 00:00 02/22/21 18:05 Insulin Aspart (Novolog) 100 Unit/Ml Vial SQ Not Given Q6H [facility] Protocol Naloxone HCl 0.2 mg 02/21/21 08:37 Naloxone 0.4 Mg/Ml 1 Ml Vial IV Q2M PRN Opioid Reversal Nitroglycerin 0.4 mg 02/21/21 08:40 Nitroglycerin Sl Tabs 0.4 Mg Tab SUBLINGUAL Q5M PRN Chest Pain Pantoprazole Sodium 40 mg 02/21/21 21:00 02/22/21 09:34 Pantoprazole 40 Mg/10 Ml Vial IVP 40 mg BID [facility] Administration Objective - Vital Signs Vital signs: Vital Signs Temp 98.1 F 02/22/21 16:00 Pulse 76 02/22/21 17:00 Resp 15 02/22/21 17:00 BP 130/73 02/22/21 17:00 Pulse Ox 97 02/22/21 17:00 Intake & Output 02/21/21 02/22/21 02/22/21 18:59 06:59 18:59 Intake Total 1320 1120 565 Output Total 557 874 4288 Balance 1020 645 -435 Weight 127.006 kg 131.9 kg Intake: IV 1020 40 Sodium Chloride 0.9% 1, 1020 40 000 ml @ 100 mls/hr IV . Q10H [facility] Rx#:[id number] Intake, IV Titration 700 100 525 Amount Lactated Ringers 1,000 ml 525 @ 75 mls/hr IV .[id number] [facility] Rx#:[id number] Sodium Chloride 0.9% 1, 700 100 000 ml @ 100 mls/hr IV . Q10H [facility] Rx#:[id number] Blood Product 620 Rc As-1 Unit 310 [id number] Rc As-1 Unit 310 [id number] Output: Urine 153 482 7230 Other: Voiding Method Urinal Urinal Urinal # Voids 0 1 0 # Bowel Movements 1 1 - Exam -GENERAL: The patient is alert and oriented x3, not in any acute distress. obese. HEENT: Pupils are round and equally reacting to light. EOMI. No scleral icterus. No conjunctival pallor. Normocephalic, atraumatic. No pharyngeal erythema. No thyromegaly. CARDIOVASCULAR: S1 and S2 present. No murmurs, rubs, or gallops. PULMONARY: Chest is clear to auscultation, no wheezing or crackles. ABDOMEN: Soft, nontender, nondistended, normoactive bowel sounds. No palpable organomegaly. MUSCULOSKELETAL: No joint swelling or deformity. EXTREMITIES: No cyanosis, clubbing, or pedal edema. NEUROLOGICAL: Gross neurological examination did not reveal any focal deficits. SKIN: No rashes. no petechiae. - Labs CBC & Chem 7: 02/22/21 14:50 02/22/21 04:24 Labs: Abnormal Lab Results - Last 24 Hours (Table) 02/21/21 02/21/21 02/22/21 Range/Units 23:20 23:25 04:24 WBC 11.9 H (3.8-10.6) k/uL RBC 3.96 L 3.72 L (4.30-5.90) m/uL Hgb 12.8 L 12.0 L (13.0-17.5) gm/dL Hct 36.8 L 34.6 L (39.0-53.0) % Sodium (137-145) mmol/L Chloride (98-107) mmol/L Carbon Dioxide (22-30) mmol/L BUN (9-20) mg/dL Glucose (74-99) mg/dL POC Glucose (mg/dL) 108 H (75-99) mg/dL Calcium (8.4-10.2) mg/dL Total Protein (6.3-8.2) g/dL Albumin (3.5-5.0) g/dL 02/22/21 02/22/21 02/22/21 Range/Units 04:24 09:53 11:44 WBC (3.8-10.6) k/uL RBC 3.80 L (4.30-5.90) m/uL Hgb 12.3 L (13.0-17.5) gm/dL Hct 35.4 L (39.0-53.0) % Sodium 136 L (137-145) mmol/L Chloride 109 H (98-107) mmol/L Carbon Dioxide 21 L (22-30) mmol/L BUN 21 H (9-20) mg/dL Glucose 133 H (74-99) mg/dL POC Glucose (mg/dL) 138 H (75-99) mg/dL Calcium 7.9 L (8.4-10.2) mg/dL Total Protein 5.5 L (6.3-8.2) g/dL Albumin 3.1 L (3.5-5.0) g/dL 02/22/21 Range/Units 14:50 WBC (3.8-10.6) k/uL RBC 3.59 L (4.30-5.90) m/uL Hgb 11.6 L (13.0-17.5) gm/dL Hct 33.4 L (39.0-53.0) % Sodium (137-145) mmol/L Chloride (98-107) mmol/L Carbon Dioxide (22-30) mmol/L BUN (9-20) mg/dL Glucose (74-99) mg/dL POC Glucose (mg/dL) (75-99) mg/dL Calcium (8.4-10.2) mg/dL Total Protein (6.3-8.2) g/dL Albumin (3.5-5.0) g/dL Assessment and Plan Assessment: Acute severe GI bleed Acute blood loss anemia secondary to above Hypotension secondary to above, blood pressure stabilized History of coronary artery disease status post stenting and pacemaker History of ischemic cardiomyopathy Diabetes mellitus History of hypertension, currently he is hypotensive Obesity with BMI of 33.2 Plan: this is a pleasant 70 years old male who presents with acute GI bleed. Continue with IV Protonix Bowel rest, currently nothing by mouth Surgical team consult, critical care team consult Monitor hemoglobin closely Continue with insulin sliding scale, telemetry monitoring Hold antihypertensive medication, aspirin or blood thinners. No NSAIDs Labs and medication were reviewed.. Continue same treatment. Continue with symptomatic treatment. Resume home medication. Monitor lytes and vitals. DVT and GI prophylaxis. Further recommendations depends on the clinical course of the patient DVT prophylaxis : no heparin in view of GI bleed GI Prophylaxis: Ppi Prognosis is guarded
[2021-02-22 21:21] LABS: HCT 32.4 % (39.0-53.0); HGB 11.1 gm/dL (13.0-17.5); MCH 31.7 pg (25.0-35.0); MCHC 34.2 g/dL (31.0-37.0); MCV 92.9 fL (80.0-100.0); Platelet Count 215 k/uL (150-450); RBC 3.49 m/uL (4.30-5.90); RDW 14.7 % (11.5-15.5)
[2021-02-22 23:32] LABS: Glucose,Whole Blood 127 mg/dL (75-99)
[2021-02-23 03:29] LABS: HCT 30.7 % (39.0-53.0); HGB 10.8 gm/dL (13.0-17.5); MCH 32.6 pg (25.0-35.0); MCHC 35.1 g/dL (31.0-37.0); MCV 92.8 fL (80.0-100.0); Mean Platelet Volume 8.4; Platelet Count 212 k/uL (150-450); RDW 14.5 % (11.5-15.5); WBC 9.3 k/uL (3.8-10.6)
[2021-02-23] MEDS: INSULIN ASPART (NovoLOG) 100 UNIT/ML VIAL SQ SCH ×5 (04:35→20:30)
[2021-02-23] MEDS: LACTATED RINGERS 1,000 ML IV SCH ×2 (04:35→19:13)
[2021-02-23 05:22] LABS: Calcium 8.2 mg/dL (8.4-10.2); Potassium 4.5 mmol/L (3.5-5.1)
[2021-02-23 06:15] LABS: Glucose,Whole Blood 141 mg/dL (75-99)
[2021-02-23] MEDS ORDERED: Magnesium Replacement Protocol 1 EACH MISC MISCELLANE PRN (07:28)
[2021-02-23] MEDS: PANTOPRAZOLE 40 MG/10 ML VIAL IVP SCH (07:42)
[2021-02-23] MEDS: MAGNESIUM SULFATE-D5W PMX 1 GM in DEXTROSE/WATER 1 100ML.BAG IVPB SCH ×2 (07:42→08:32)
--- NOTE | 2021-02-23 08:46 | P.PN ---
Subjective Progress Note Date: 02/23/21 Patient seen and examined at bedside. He has had 2 more bloody bowel movements over the past 24 hours. He states that it seems that the bowel movements are spreading apart over longer periods of time. He states that it seems to be between 9 and 12 hours. His last bowel movement was bright red blood but he states he noticed clots as well. Hemoglobin is currently 10.8. No hypotension no tachycardia. Objective - Vital Signs Vital signs: Vital Signs Temp 98.1 F 02/23/21 08:00 Pulse 83 02/23/21 08:00 Resp 12 02/23/21 08:00 BP 126/79 02/23/21 08:00 Pulse Ox 97 02/23/21 08:00 Intake & Output 02/22/21 02/23/21 02/23/21 18:59 06:59 18:59 Intake Total 640 975 175 Output Total 1000 725 0 Balance -360 250 175 Weight 132 kg Intake: IV 40 Sodium Chloride 0.9% 1, 40 000 ml @ 100 mls/hr IV . Q10H [facility] Rx#:[id number] Intake, IV Titration 600 975 175 Amount Lactated Ringers 1,000 ml 600 975 75 @ 75 mls/hr IV .[id number] [facility] Rx#:[id number] Magnesium Sulfate-D5w Pmx 100 1 gm In Dextrose/Water 1 100ml.bag @ 100 mls/hr IVPB Q1H [facility] Rx#: [id number] Output: Urine 1000 725 0 Other: Voiding Method Urinal Urinal Urinal # Voids 0 # Bowel Movements 1 1 - Constitutional General appearance: Present: cooperative, no acute distress - Gastrointestinal Gastrointestinal Comment(s): Soft, nontender, nondistended, no rebound, no guarding - Psychiatric Psychiatric: Present: A&O x's 3 - Labs CBC & Chem 7: 02/23/21 02:51 02/23/21 03:00 Labs: Abnormal Lab Results - Last 24 Hours (Table) 02/22/21 02/22/21 02/22/21 Range/Units 09:53 11:44 14:50 RBC 3.80 L 3.59 L (4.30-5.90) m/uL Hgb 12.3 L 11.6 L (13.0-17.5) gm/dL Hct 35.4 L 33.4 L (39.0-53.0) % Chloride (98-107) mmol/L Carbon Dioxide (22-30) mmol/L BUN (9-20) mg/dL Glucose (74-99) mg/dL POC Glucose (mg/dL) 138 H (75-99) mg/dL Calcium (8.4-10.2) mg/dL 02/22/21 02/22/21 02/22/21 Range/Units 17:57 20:54 23:30 RBC 3.49 L (4.30-5.90) m/uL Hgb 11.1 L (13.0-17.5) gm/dL Hct 32.4 L (39.0-53.0) % Chloride (98-107) mmol/L Carbon Dioxide (22-30) mmol/L BUN (9-20) mg/dL Glucose (74-99) mg/dL POC Glucose (mg/dL) 115 H 127 H (75-99) mg/dL Calcium (8.4-10.2) mg/dL 02/23/21 02/23/21 02/23/21 Range/Units 02:51 03:00 06:13 RBC 3.30 L (4.30-5.90) m/uL Hgb 10.8 L (13.0-17.5) gm/dL Hct 30.7 L (39.0-53.0) % Chloride 108 H (98-107) mmol/L Carbon Dioxide 21 L (22-30) mmol/L BUN 23 H (9-20) mg/dL Glucose 144 H (74-99) mg/dL POC Glucose (mg/dL) 141 H (75-99) mg/dL Calcium 8.2 L (8.4-10.2) mg/dL Assessment and Plan Plan: Discussed the case in depth with the patient. It does appear that the bloody bowel movements are slowing down and are more spaced out over time, however ther e is still bright red blood output. Hemoglobin is currently 10.8. He is showing no signs of hemorrhagic shock. Currently, GI services are now available and I did discuss the case with the curbstone setter, Dr. Hankins. Based on the continued bright red blood, he will evaluate for possible endoscopy for evaluation of bleeding site. Continue to hold anticoagulation. Patient is agreeable with this plan.
--- NOTE | 2021-02-23 11:49 | P.PN ---
Subjective Progress Note Date: 02/23/21 Principal diagnosis: Acute GI bleeding 70-year-old male patient, presented to the emergency department because of a lower GI bleed. The patient has been having bloody stool. He underwent a screening colonoscopy approximately a week ago and he underwent a polypectomy and as of yesterday started having increased diarrhea and bloody stool proximately 768 episodes and for that reason he came into the hospital. No abdominal pain. No emesis. No nausea. He has been maintained on baby aspirin 81 mg by mouth. Home regarding previous coronary artery disease and previous coronary stenting. He is known to have multiple medical problems. He is known to have CAD with previous stenting, congestion heart failure with an ejection fraction of 30-35%, diabetes mellitus, hypertension, ischemic cardiomyopathy and the patient has a pacemaker in place. His current EKG showing a sinus rhythm with a first-degree AV block. Upon arrival to the emergency department, the patient was found that hemoglobin of 12.3. His blood pressure was in the low side. He was given a bolus of 500. There is improvement in his blood pressure improved. He received a total of 2 units of packed RBC. Currently is resting comfortably in the intensive care unit. A general surgical consultation has been obtained. He is on NSS @ 100 cc /hr 02/22/2021, THE PATIENT IS BEING SEEN IN FOLLOW-UP IN THE INTENSIVE CARE UNIT. UNFORTUNATELY, THE PATIENT HAD THE BOUT OF BLOODY movements yesterday evening earlier this morning. Another bout of a large bloody bowel movement there was bright red blood. It the patient continues to have stable vital signs. No tachycardia. No chest pain. No syncope.12.0. This blood test was done prior to his left total GI bleed. Rest of the electrodes are all stable. BUN is at 21 with a creatinine of 0.9. Electrolytes are normal. Patient currently off aspirin and off Effient. No nausea. No vomiting. No abdominal pain. He is back on being by mouth. IV fluids is running at the rate of 100 mL an hour normal saline. Patient was admitted on 02/23/2021, remains in the ICU, continues to have intermittent episodes of bright red blood per rectum, however his hemoglobin is holding at 10.8 today, patient received a total of 2 units of packed RBCs since admission. Patient was seen by surgery and recommended GI consultation. He is yet to be seen by gastroenterology possibly today. In the meantime the patient remains hemodynamically stable, no active bleeding at the time of my evaluation although he had active bleeding last night and early this morning. Patient does not seem to be in any distress, his aspirin and Effient remain on hold. Electrolytes are normal renal profile is normal CBC as noted above hemoglobin was 11.1 yesterday and it is 10.8 today. Objective - Vital Signs Vital signs: Vital Signs Temp 98.1 F 02/23/21 08:00 Pulse 81 02/23/21 11:00 Resp 12 02/23/21 11:00 BP 123/81 02/23/21 11:00 Pulse Ox 96 02/23/21 10:00 Intake & Output 02/22/21 02/23/21 02/23/21 18:59 06:59 18:59 Intake Total 640 975 575 Output Total 1000 725 550 Balance -360 250 25 Weight 132 kg Intake: IV 40 Sodium Chloride 0.9% 1, 40 000 ml @ 100 mls/hr IV . Q10H [facility] Rx#:[id number] Intake, IV Titration 600 975 575 Amount Lactated Ringers 1,000 ml 600 975 375 @ 75 mls/hr IV .[id number] [facility] Rx#:[id number] Magnesium Sulfate-D5w Pmx 200 1 gm In Dextrose/Water 1 100ml.bag @ 100 mls/hr IVPB Q1H [facility] Rx#: [id number] Output: Urine 1000 725 550 Other: Voiding Method Urinal Urinal Urinal # Voids 0 # Bowel Movements 1 1 - Exam Physical Exam: Revealed 70-year-old white male extremely pleasant in no distress sitting in bed on room air. Head: Atraumatic, normocephalic. HEENT:[Neck is supple.] [No neck masses.] [No thyromegaly.] [No JVD.] Chest: [Clear throughout, no crackles, no rhonchi, no wheezes.] Cardiac Exam: [Normal S1 and S2, no S3 gallop, no murmur.] Abdomen: [Soft, nontender, no megaly, no rebound, no guarding, normal bowel sounds.] Extremities: [No clubbing, no edema, no cyanosis.] Neurological Exam: [No focal neurologic deficit.] Alert and oriented 3. Psychiatric: Normal mood affect and normal mental status examination. Skin: No rashes. Musculoskeletal: No deformities noted limitation of range of motion. - Labs CBC & Chem 7: 02/23/21 02:51 02/23/21 03:00 Labs: Abnormal Lab Results - Last 24 Hours (Table) 02/22/21 02/22/21 02/22/21 Range/Units 11:44 14:50 17:57 RBC 3.59 L (4.30-5.90) m/uL Hgb 11.6 L (13.0-17.5) gm/dL Hct 33.4 L (39.0-53.0) % Chloride (98-107) mmol/L Carbon Dioxide (22-30) mmol/L BUN (9-20) mg/dL Glucose (74-99) mg/dL POC Glucose (mg/dL) 138 H 115 H (75-99) mg/dL Calcium (8.4-10.2) mg/dL 02/22/21 02/22/21 02/23/21 Range/Units 20:54 23:30 02:51 RBC 3.49 L 3.30 L (4.30-5.90) m/uL Hgb 11.1 L 10.8 L (13.0-17.5) gm/dL Hct 32.4 L 30.7 L (39.0-53.0) % Chloride (98-107) mmol/L Carbon Dioxide (22-30) mmol/L BUN (9-20) mg/dL Glucose (74-99) mg/dL POC Glucose (mg/dL) 127 H (75-99) mg/dL Calcium (8.4-10.2) mg/dL 02/23/21 02/23/21 Range/Units 03:00 06:13 RBC (4.30-5.90) m/uL Hgb (13.0-17.5) gm/dL Hct (39.0-53.0) % Chloride 108 H (98-107) mmol/L Carbon Dioxide 21 L (22-30) mmol/L BUN 23 H (9-20) mg/dL Glucose 144 H (74-99) mg/dL POC Glucose (mg/dL) 141 H (75-99) mg/dL Calcium 8.2 L (8.4-10.2) mg/dL Assessment and Plan Assessment: Impression: Acute lower GI bleeding in a patient with history of colonoscopy and polypectomy the most likely source of the bleeding is at the site of his previous polypectomy, exacerbated by the fact that the patient was on blood thinners including aspirin and Effient. Acute blood loss anemia secondary to GI bleeding required 2 units of packed RBCs so far. Coronary artery disease and previous stent placement over 3 years ago. History of ischemic cardiomyopathy and LV dysfunction with ejection fraction of 30-35%. Benign essential hypertension. Type 2 diabetes Dyslipidemia. Recommendation: Continue IV fluids. Continue to monitor hemoglobin every 8 hours. Continue to hold aspirin and Effient. Continue sliding scale coverage. Awaiting GI consultation Considering the patient is hemodynamically stable will likely arrange for the patient be transferred to a medical surgical floor. We'll continue to follow while in the intensive care unit. Time with Patient: Less than 30
[2021-02-23 11:51] LABS: Glucose,Whole Blood 136 mg/dL (75-99)
--- NOTE | 2021-02-23 13:12 | P.PN ---
Subjective Progress Note Date: 02/23/21 This is a 70-year-old gentleman admitted with GI bleed, status post approximately one week post colonoscopy with polypectomy, status post 2 units of packed RBCs and multiple other medical issues. During the night patient had 2 more bright red bloody bowel movements reported 6 hours apart. Patient reports passing of bloody clot, this morning. Hemoglobin stable 10.8. Anticoagulation remains on hold. Telemetry sinus rhythm. VSS. Receiving magnesium supplementation for magnesium 1.7. Maintained on IV fluid hydration, PPI and NPO. Renal function stable. Blood sugars controlled. Denies nausea vomiting or diarrhea. Denies abdominal pain. Denies lightheadedness dizziness or focal deficits. Denies chest pain, palpitations or shortness of breath. Objective - Vital Signs Vital signs: Vital Signs Temp 98.1 F 02/23/21 08:00 Pulse 75 02/23/21 12:00 Resp 12 02/23/21 11:00 BP 123/81 02/23/21 11:00 Pulse Ox 96 02/23/21 10:00 Intake & Output 02/22/21 02/23/21 02/23/21 18:59 06:59 18:59 Intake Total 640 975 650 Output Total 1000 725 550 Balance -360 250 100 Weight 132 kg Intake: IV 40 Sodium Chloride 0.9% 1, 40 000 ml @ 100 mls/hr IV . Q10H [facility] Rx#:[id number] Intake, IV Titration 600 975 650 Amount Lactated Ringers 1,000 ml 600 975 450 @ 75 mls/hr IV .[id number] [facility] Rx#:[id number] Magnesium Sulfate-D5w Pmx 200 1 gm In Dextrose/Water 1 100ml.bag @ 100 mls/hr IVPB Q1H [facility] Rx#: [id number] Output: Urine 1000 725 550 Other: Voiding Method Urinal Urinal Urinal # Voids 0 # Bowel Movements 1 1 - Exam - Exam -GENERAL: alert and oriented x3, sitting up in bed, not in any acute distress. HEENT: Pupils are round and equally reacting to light. EOMI. No scleral icterus. No conjunctival pallor. Normocephalic, atraumatic. CARDIOVASCULAR: S1 and S2 present. No murmurs, rubs, or gallops. PULMONARY: Chest is clear to auscultation, no wheezing or crackles. ABDOMEN: Soft, nontender, distended, normoactive bowel sounds. No palpable organomegaly. EXTREMITIES: No cyanosis, clubbing, or pedal edema. NEUROLOGICAL: Gross neurological examination did not reveal any focal deficits. SKIN: No rashes. no petechiae. Warm and dry - Labs CBC & Chem 7: 02/23/21 02:51 02/23/21 03:00 Labs: Abnormal Lab Results - Last 24 Hours (Table) 02/22/21 02/22/21 02/22/21 Range/Units 14:50 17:57 20:54 RBC 3.59 L 3.49 L (4.30-5.90) m/uL Hgb 11.6 L 11.1 L (13.0-17.5) gm/dL Hct 33.4 L 32.4 L (39.0-53.0) % Chloride (98-107) mmol/L Carbon Dioxide (22-30) mmol/L BUN (9-20) mg/dL Glucose (74-99) mg/dL POC Glucose (mg/dL) 115 H (75-99) mg/dL Calcium (8.4-10.2) mg/dL 02/22/21 02/23/21 02/23/21 Range/Units 23:30 02:51 03:00 RBC 3.30 L (4.30-5.90) m/uL Hgb 10.8 L (13.0-17.5) gm/dL Hct 30.7 L (39.0-53.0) % Chloride 108 H (98-107) mmol/L Carbon Dioxide 21 L (22-30) mmol/L BUN 23 H (9-20) mg/dL Glucose 144 H (74-99) mg/dL POC Glucose (mg/dL) 127 H (75-99) mg/dL Calcium 8.2 L (8.4-10.2) mg/dL 02/23/21 02/23/21 Range/Units 06:13 11:49 RBC (4.30-5.90) m/uL Hgb (13.0-17.5) gm/dL Hct (39.0-53.0) % Chloride (98-107) mmol/L Carbon Dioxide (22-30) mmol/L BUN (9-20) mg/dL Glucose (74-99) mg/dL POC Glucose (mg/dL) 141 H 136 H (75-99) mg/dL Calcium (8.4-10.2) mg/dL Assessment and Plan Assessment: Acute severe lower GI bleed in a patient with recent colonoscopy with polypectomy. Acute blood loss anemia secondary to above, status post 2 unit packed RBCs Hypotension secondary to above, blood pressure stabilized Coronary artery disease , history of stenting History of ischemic cardiomyopathy, EF 30-35%, pacemaker Diabetes mellitus II Hypertension Obesity,BMI of 34.5 Plan: Continue on current medication regime ,monitoring and symptomatic treatment. NPO. GI consult in place with recommendations pending. Anticoagulation remains on hold. Close monitoring of coags with serial hemoglobins & repeat labs ordered for a.m. patient has been cleared by dental patient coordinator for transfer out of ICU to [facility] with remote telemetry .prognosis guarded given multiple complex medical issues. The impression and plan of care has been dictated as directed. : I performed a history and examination of this patient, discussed the same with the dictator. I agree with the dictator's note ,documented as a scribe. Any additional findings or plans will be noted.
[2021-02-23] MEDS ORDERED: PEG 3350-NA SULF,BICARB,CL/KCL 4,000 ML BOTTLE PO ONE (16:00)
[2021-02-23 16:49] LABS: Glucose,Whole Blood 141 mg/dL (75-99)
--- NOTE | 2021-02-23 19:21 | P.CONS ---
History of Present Illness - Reason for Consult Consult date: 02/23/21 GI bleed Requesting physician: Jd Baeza - Chief Complaint blood per rectum - History of Present Illness 70-year-old male with a medical history significant for coronary artery disease status post stent placement (reports 3 years ago) on anticoagulation therapy, hypertension and diabetes mellitus who presented to the hospital with complaints of blood per rectum. The patient reports that the episodes started early on Tuesday morning and continued throughout the day. He reported a large amount of painless bright red blood per rectum. Patient was transferred to the ICU where he received 2 units of pack red blood cells and is currently hemodynamically stable. Previously the patient did have colonoscopy on 02/13/21 with hot snare polypectomy of an ascending colon polyp. He is on Effient due to a history of some placement in the past. He denies any abdominal pain. Patient is seen in the ICU today reporting that the bleeding has slowed down significant ly. He only reports one episode of some dark colored blood this morning and has had no further episodes throughout the day. He denies any nausea or vomiting or other GI complaints. Review of Systems REVIEW OF SYSTEMS: CONSTITUTIONAL: Denies any fevers, chills, weight change or fatigue. CARDIOVASCULAR: Denies any chest pain, palpitations high or low blood pressures currently but was found to be tachycardic and hypotensive on admission. RESPIRATORY: Denies any shortness of breath, hemoptysis or cough. GENITOURINARY: No dysuria or hematuria. MUSCULOSKELETAL: No weakness reported. SKIN: Denies any new rashes or lesions, jaundice or pallor. PSYCHIATRIC: Denies any depression or anxiety. NEUROLOGY: Denies headache, denies any new focal deficits. EARS/NOSE/THROAT: No recent hearing change, congestion, nasal discharge or sore throat. EYES: No pain in eyes, discharge or change in vision. GASTROINTESTINAL: As per HPI. Past Medical History Past Medical History: Coronary Artery Disease (CAD), Diabetes Mellitus, GI Bleed, Hypertension, Myocardial Infarction ([place]) Additional Past Medical History / Comment(s): 02/21/18 NSTEMI, ishcemic cardiomyopathy, irregular heart beat-told years ago he needed a pacemaker in the future; NIDDM type II. 02/21/21 Admitted for GIB Last Myocardial Infarction Date:: 02/21/18 History of Any Multi-Drug Resistant Organisms: None Reported Past Surgical History: Cholecystectomy, Heart Catheterization With Stent Additional Past Surgical History / Comment(s): 02/21/18 PCI with stent placement in LAD, pilonidial cyst removed. 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 Date of Last Stent Placement:: 02/21/18 Past Psychological History: No Psychological Hx Reported Additional Psychological History / Comment(s): Pt resides with his spouse. He is independent. Smoking Status: Never smoker Past Alcohol Use History: None Reported Additional Past Alcohol Use History / Comment(s): Pt quit smoking in 2015. Past Drug Use History: None Reported - Past Family History Mother Family Medical History: No Reported History Additional Family Medical History / Comment(s): Pt states mother at the age of 83 yrs from possibly CHF. Father Family Medical History: Dementia Additional Family Medical History / Comment(s): Father at the age of 65yrs from dementia. Medications and Allergies Home Medications Medication Instructions Recorded Confirmed Type Escitalopram [Lexapro] 20 mg PO DAILY 11/21/15 02/21/21 History Aspirin 81 mg PO DAILY 02/20/18 02/21/21 History metFORMIN HCL [Glucophage] 1,000 mg PO DAILY 02/20/18 02/21/21 History Prasugrel [Effient] 10 mg PO DAILY #30 tab 02/21/18 02/21/21 Rx Spironolactone [Aldactone] 25 mg PO DAILY #30 tab 02/21/18 02/21/21 Rx Olmesartan Medoxomil 20 mg PO DAILY 04/04/18 02/21/21 History Atorvastatin Calcium [Lipitor] 80 mg PO DAILY 09/18/18 02/21/21 History carvediloL [Coreg] 6.25 mg PO AC-BID 09/18/18 02/21/21 History Ammonium Lactate Cream [Lac-Hydrin 1 applic TOPICAL DAILY PRN 02/21/21 02/21/21 History 12% Cream] Doxylamine Succinate [Unisom] 50 mg PO HS 02/21/21 02/21/21 History Imiquimod [Aldara] 1 packet TOPICAL MOWEFR 02/21/21 02/21/21 History Nitroglycerin Sl Tabs [Nitrostat] 0.4 mg SL Q5M PRN 02/21/21 02/21/21 History metFORMIN HCL 500 mg PO HS 02/21/21 02/21/21 History Allergies Allergy/AdvReac Type Severity Reaction Status Date / Time No Known Allergies Allergy Verified 02/21/21 09:27 Physical Exam Vitals: Vital Signs Temp Pulse Resp BP Pulse Ox 02/23/21 10:00 82 12 127/87 96 02/23/21 09:00 77 12 112/82 98 02/23/21 08:00 98.1 F 83 12 126/79 97 02/23/21 07:00 82 21 109/75 96 02/23/21 06:00 80 5 L 115/70 95 02/23/21 05:00 74 29 H 115/70 94 L 02/23/21 04:00 98 F 72 14 121/78 95 02/23/21 03:00 76 12 120/63 97 02/23/21 02:00 77 27 H 126/85 96 02/23/21 01:00 79 13 118/66 96 02/23/21 00:00 98 F 76 12 137/80 97 02/22/21 23:00 74 6 L 122/78 97 02/22/21 22:42 81 12 122/78 97 02/22/21 22:00 77 11 L 115/82 96 02/22/21 21:00 78 12 121/79 98 02/22/21 20:00 98.2 F 79 12 123/81 96 02/22/21 19:00 81 25 H 114/82 96 02/22/21 18:00 82 26 H 121/79 99 02/22/21 17:00 76 15 130/73 97 02/22/21 16:00 98.1 F 66 14 117/75 96 02/22/21 15:00 77 17 110/64 96 02/22/21 14:00 75 10 L 144/88 94 L 02/22/21 13:00 79 9 L 124/86 98 02/22/21 12:00 98.1 F 78 6 L 118/82 98 02/22/21 11:00 75 11 L 132/84 96 02/22/21 10:45 75 9 L 96 02/22/21 10:30 77 11 L 96 Intake and Output 02/22/21 02/23/21 02/23/21 22:59 06:59 14:59 Intake Total 600 675 425 Output Total 500 725 0 Balance 100 -50 425 Intake: Intake, IV Titration 600 675 425 Amount Lactated Ringers 1,000 ml 600 675 225 @ 75 mls/hr IV .[id number] [facility] Rx#:[id number] Magnesium Sulfate-D5w Pmx 200 1 gm In Dextrose/Water 1 100ml.bag @ 100 mls/hr IVPB Q1H [facility] Rx#: [id number] Output: Urine 500 725 0 Other: Voiding Method Urinal Urinal Urinal # Voids 0 # Bowel Movements 1 1 Weight 132 kg On physical examination, patient appears comfortable in no apparent distress. HEAD: Normocephalic, atraumatic. EYES: No scleral icterus. No conjunctival injection. MOUTH: No lesions, tongue midline. NECK: Trachea midline, no gross abnormalities. CHEST: Clear to auscultation with no wheezing or rhonchi appreciated. HEART: S1-S2 appreciated. ABDOMEN: Soft, obese. Bowel sounds are positive. No organomegaly. No guarding or rigidity. EXTREMITIES: No pedal edema. SKIN: No rashes, no jaundice. NEUROLOGIC: Alert and oriented x3. No focal deficits. Results CBC & Chem 7: 02/23/21 02:51 02/23/21 03:00 Labs: Abnormal Lab Results - Last 24 Hours (Table) 02/22/21 02/22/21 02/22/21 Range/Units 11:44 14:50 17:57 RBC 3.59 L (4.30-5.90) m/uL Hgb 11.6 L (13.0-17.5) gm/dL Hct 33.4 L (39.0-53.0) % Chloride (98-107) mmol/L Carbon Dioxide (22-30) mmol/L BUN (9-20) mg/dL Glucose (74-99) mg/dL POC Glucose (mg/dL) 138 H 115 H (75-99) mg/dL Calcium (8.4-10.2) mg/dL 02/22/21 02/22/21 02/23/21 Range/Units 20:54 23:30 02:51 RBC 3.49 L 3.30 L (4.30-5.90) m/uL Hgb 11.1 L 10.8 L (13.0-17.5) gm/dL Hct 32.4 L 30.7 L (39.0-53.0) % Chloride (98-107) mmol/L Carbon Dioxide (22-30) mmol/L BUN (9-20) mg/dL Glucose (74-99) mg/dL POC Glucose (mg/dL) 127 H (75-99) mg/dL Calcium (8.4-10.2) mg/dL 02/23/21 02/23/21 Range/Units 03:00 06:13 RBC (4.30-5.90) m/uL Hgb (13.0-17.5) gm/dL Hct (39.0-53.0) % Chloride 108 H (98-107) mmol/L Carbon Dioxide 21 L (22-30) mmol/L BUN 23 H (9-20) mg/dL Glucose 144 H (74-99) mg/dL POC Glucose (mg/dL) 141 H (75-99) mg/dL Calcium 8.2 L (8.4-10.2) mg/dL Abdominal x-ray: report reviewed (abdominal x-ray on presentation suggestive of possible small bowel obstruction) Assessment and Plan (1) Anemia associated with acute blood loss Narrative/Plan: 70-year-old male presenting to the hospital due to multiple episodes of painless bright red blood per rectum. Patient found to be hypotensive and tachycardic on presentation, With transfusion of 2 units of PRBCs. Currently hemoglobin is stable at 10.8 from 11.1 previously. Patient recently underwent colonoscopy on 02/13/21 with polypectomy with hot snare of the ascending colon polyp. Suspicion is for post-polypectomy bleed, differential also includes diverticular bleed, or other etiology. Current Visit: Yes Status: Acute Code(s): D62 - ACUTE POSTHEMORRHAGIC ANEMIA SNOMED Code(s): 352505457 (2) Hematochezia Current Visit: Yes Status: Acute Code(s): K92.1 - MELENA SNOMED Code(s): 120666604 (3) Lower GI bleed Current Visit: Yes Status: Acute Code(s): K92.2 - GASTROINTESTINAL HEMORRHAGE, UNSPECIFIED SNOMED Code(s): 05135008 Plan: supportive care Okay for some clear liquids Continue to monitor hemoglobin and hematocrit every 8 hours Continue to hold anticoagulation therapy Extensive discussion with the patient who is been offered a colonoscopy for further evaluation, given the improvement of his symptoms and his stable hemoglobin the patient would like to continue conservative management, if further bleeding will reevaluate at that time Cardiology service will be consulted in regards to the patient's need for anticoagulation as he has a remote history of stent placement Thank you for allowing us to participate in the care of the patient
[2021-02-23 20:25] LABS: Glucose,Whole Blood 148 mg/dL (75-99)
[2021-02-24] MEDS: LACTATED RINGERS 1,000 ML IV SCH ×2 (02:30→15:44)
[2021-02-24 03:53] LABS: Basophils # (A) 0.1 k/uL (0-0.2); Basophils % (A) 1 %; Eosinophils # (A) 0.2 k/uL (0-0.7); Eosinophils % (A) 2 %; HCT 25.4 % (39.0-53.0); Lymphocytes # (A) 1.5 k/uL (1.0-4.8); Lymphocytes % (A) 17 %; MCH 31.4 pg (25.0-35.0); MCV 92.4 fL (80.0-100.0); Monocytes # (A) 0.7 k/uL (0-1.0); Monocytes % (A) 8 %; Neutrophils # (A) 6.4 k/uL (1.3-7.7); Neutrophils % (A) 69 %; Platelet Count 228 k/uL (150-450); RBC 2.75 m/uL (4.30-5.90); RDW 14.7 % (11.5-15.5); WBC 9.2 k/uL (3.8-10.6)
[2021-02-24 04:03] LABS: ALT 12 U/L (4-49); AST 17 U/L (17-59); African American GFR (CKD) >90 (>60 ml/min/1.73 sqM); Albumin 2.9 g/dL (3.5-5.0); Alkaline Phosphatase 76 U/L (38-126); Anion Gap 7 mmol/L; Blood Urea Nitrogen 24 mg/dL (9-20); Calcium 7.9 mg/dL (8.4-10.2); Carbon Dioxide 20 mmol/L (22-30); Chloride 107 mmol/L (98-107); Glucose 140 mg/dL (74-99); HGB 8.6 gm/dL (13.0-17.5); Magnesium 1.8 mg/dL (1.6-2.3); Non-African American GFR(CKD) 80 (>60 ml/min/1.73 sqM); Potassium 3.9 mmol/L (3.5-5.1); Sodium 134 mmol/L (137-145); Total Bilirubin 0.5 mg/dL (0.2-1.3); Total Protein 5.1 g/dL (6.3-8.2)
[2021-02-24 06:31] LABS: Glucose,Whole Blood 168 mg/dL (75-99)
[2021-02-24] MEDS: INSULIN ASPART (NovoLOG) 100 UNIT/ML VIAL SQ SCH ×4 (06:38→20:57)
[2021-02-24] MEDS ORDERED: PANTOPRAZOLE 40 MG TABLET PO SCH (07:30)
[2021-02-24] MEDS: LOSARTAN 50 MG TAB PO SCH (08:57)
[2021-02-24] MEDS: carvediloL 6.25 MG TAB PO SCH ×2 (08:57→16:02)
[2021-02-24] MEDS: SPIRONOLACTONE 25 MG TAB PO SCH (08:57)
[2021-02-24] MEDS: ATORVASTATIN 80 MG TAB PO SCH (08:57)
--- NOTE | 2021-02-24 09:14 | P.CRDCN ---
History of Present Illness History of present illness: HISTORY OF PRESENTING ILLNESS This is a pleasant 70-year-old male past medical history significant for non-ST elevated myocardial infarction status post PCI to the proximal LAD 2017, ischemic cardiomyopathy that improved after PCI, hypertension, dyslipidemia, diabetes mellitus and former nicotine dependence. He had previously followed in the office with Dr. Dela Cruz after his [place] however he has not been to the office since 2018. We have been asked to see in consultation for anticoagulation recommendations in the setting of GI bleeding. Resented to the hospital with multiple episodes of bright red blood per rectum. He states he had a routine colonoscopy a week prior and did hold his Effient prior to the procedure and then resumed it 4 days later. He did have a snare polypectomy at that time. On arrival to the emergency department he was having copious amounts of bright red blood per rectum. He received 2 units of packed red blood cells. He is seen and examined sitting up in the intensive care unit in no acute distress. He states he did have a maroon colored stool this morning. He denies symptoms of chest pain, shortness of breath, dizziness or palpitations. EKG reveals sinus mechanism with first-degree AV block, left anterior fascicular block and heart rate of 73 with a single PVC. Chest x-ray is negative for an acute cardiopulmonary process. Laboratory data reviewed, WBC 9.2, hemoglobin 8.6, platelets 228, sodium 134, potassium 3.9, creatinine 0.96 and magnesium 1.8. Current daily cardiac medications include Coreg 6.25 mg twice a day, Aldactone 25 mg daily, losartan 20 mg daily, atorvastatin 80 mg daily and aspirin 81 mg daily. At the time of his [place] his EF was 30-35% with apical septal, anteroseptal, septal and apical hypokinesia noted. He had a repeat echocardiogram 2 months later revealing wall motion abnormalities had resolved and EF was 50-55%. REVIEW OF SYSTEMS At the time of my exam: CONSTITUTIONAL: Denies fever or chills. CARDIOVASCULAR: Denies chest pain, shortness of breath, orthopnea, PND or palpitations. RESPIRATORY: Denies cough. GASTROINTESTINAL: Denies abdominal pain, diarrhea, constipation, nausea or vomiting. MUSCULOSKELETAL: Denies myalgias. NEUROLOGIC: Denies numbness, tingling, headacbe or weakness. ENDOCRINE: Denies fatigue, weight change, polydipsia or polyurina. GENITOURINARY: Denies burning, hematuria or urgency with micturation. PHYSICAL EXAMINATION Blood pressure 150/84 heart rate 89 afebrile and maintaining oxygen saturation on room air. CONSTITUTIONAL: No apparent distress. HEENT: Head is normocephalic. Pupils are equal, round. Sclerae anicteric. Mucous membranes of the mouth are moist. No JVD. No carotid bruit. CHEST EXAMINATION: Lungs are clear to auscultation. No chest wall tenderness is noted on palpation or with deep breathing. HEART EXAMINATION: Regular rate and rhythm. S1, S2 heard. No murmurs, gallops or rub. ABDOMEN: Soft, nontender. Positive bowel sounds. EXTREMITIES: 2+ peripheral pulses, no lower extremity edema and no calf tenderness. NEUROLOGIC EXAMINATION: Patient is awake, alert and oriented x3. ASSESSMENT Acute lower GI bleeding Anemia History of myocardial infarction status post PCI Coronary artery disease Hypertension Dyslipidemia Diabetes mellitus Former nicotine dependence PLAN Effient can be completely discontinued. His stenting was in 2018, typically this is used for 1-year post PCI. However, the patient did not return to the office for follow up visits. Obtain 2D echocardiogram and doppler study to assess cardiac structure and function. Resume coreg, olmesartan, atorvastatin and aldactone as previously ordered. Await GI opinion regarding possible repeat colonoscopy today with clipping if needed. Aspirin should be resumed when appropriate and bleeding has subsided. Possibly next week, pending GI recommendations. Further recommendations to follow based on clinical course. Thank you kindly for this consultation. Nurse Practitioner note has been reviewed, I agree with a documented findings and plan of care. Patient was seen and examined. Past Medical History Past Medical History: Coronary Artery Disease (CAD), Diabetes Mellitus, GI Bleed, Hypertension, Myocardial Infarction ([place]) Additional Past Medical History / Comment(s): 02/21/18 NSTEMI, ishcemic cardio myopathy, irregular heart beat-told years ago he needed a pacemaker in the future; NIDDM type II. 02/21/21 Admitted for GIB Last Myocardial Infarction Date:: 02/21/18 History of Any Multi-Drug Resistant Organisms: None Reported Past Surgical History: Cholecystectomy, Heart Catheterization With Stent Additional Past Surgical History / Comment(s): 02/21/18 PCI with stent placement in LAD, pilonidial cyst removed. 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 Date of Last Stent Placement:: 02/21/18 Past Psychological History: No Psychological Hx Reported Additional Psychological History / Comment(s): Pt resides with his spouse. He is independent. Smoking Status: Never smoker Past Alcohol Use History: None Reported Additional Past Alcohol Use History / Comment(s): Pt quit smoking in 2015. Past Drug Use History: None Reported - Past Family History Mother Family Medical History: No Reported History Additional Family Medical History / Comment(s): Pt states mother at the age of 83 yrs from possibly CHF. Father Family Medical History: Dementia Additional Family Medical History / Comment(s): Father at the age of 65yrs from dementia. Medications and Allergies Home Medications Medication Instructions Recorded Confirmed Type Escitalopram [Lexapro] 20 mg PO DAILY 11/21/15 02/21/21 History Aspirin 81 mg PO DAILY 02/20/18 02/21/21 History metFORMIN HCL [Glucophage] 1,000 mg PO DAILY 02/20/18 02/21/21 History Spironolactone [Aldactone] 25 mg PO DAILY #30 tab 02/21/18 02/21/21 Rx Olmesartan Medoxomil 20 mg PO DAILY 04/04/18 02/21/21 History Atorvastatin Calcium [Lipitor] 80 mg PO DAILY 09/18/18 02/21/21 History carvediloL [Coreg] 6.25 mg PO AC-BID 09/18/18 02/21/21 History Ammonium Lactate Cream [Lac-Hydrin 1 applic TOPICAL DAILY PRN 02/21/21 02/21/21 History 12% Cream] Doxylamine Succinate [Unisom] 50 mg PO HS 02/21/21 02/21/21 History Imiquimod [Aldara] 1 packet TOPICAL MOWEFR 02/21/21 02/21/21 History Nitroglycerin Sl Tabs [Nitrostat] 0.4 mg SL Q5M PRN 02/21/21 02/21/21 History metFORMIN HCL 500 mg PO HS 02/21/21 02/21/21 History Allergies Allergy/AdvReac Type Severity Reaction Status Date / Time No Known Allergies Allergy Verified 02/21/21 09:27 Physical Exam Vitals: Vital Signs Temp Pulse Pulse Pulse Resp BP BP 02/24/21 08:00 98.4 F 89 16 150/84 02/24/21 02:00 97.8 F 92 17 127/93 02/23/21 20:00 97.8 F 75 18 160/73 02/23/21 19:00 75 02/23/21 18:00 80 02/23/21 17:00 89 02/23/21 16:00 97.9 F 126 H 22 160/73 02/23/21 15:00 87 02/23/21 14:00 81 02/23/21 13:00 82 02/23/21 12:00 75 02/23/21 11:00 81 12 123/81 02/23/21 10:00 82 12 127/87 02/23/21 09:00 77 12 112/82 Pulse Ox 02/24/21 08:00 96 02/24/21 02:00 95 02/23/21 20:00 95 02/23/21 19:00 02/23/21 18:00 02/23/21 17:00 02/23/21 16:00 94 L 02/23/21 15:00 02/23/21 14:00 02/23/21 13:00 02/23/21 12:00 02/23/21 11:00 02/23/21 10:00 96 02/23/21 09:00 98 Intake and Output 02/23/21 02/24/21 02/24/21 22:59 06:59 14:59 Intake Total 450 1230 Output Total 450 400 Balance 0 830 Intake: Intake, IV Titration 450 750 Amount Lactated Ringers 1,000 ml 375 750 @ 75 mls/hr IV .[id number] [facility] Rx#:[id number] Magnesium Sulfate-D5w Pmx 75 1 gm In Dextrose/Water 1 100ml.bag @ 100 mls/hr IVPB Q1H [facility] Rx#: [id number] Oral 480 Output: Urine 450 400 Other: Voiding Method Urinal Urinal Weight 130.5 kg Results 02/24/21 03:06 02/24/21 03:06 Cardiac Enzymes 02/24/21 Range/Units 03:06 AST 17 (17-59) U/L CBC 02/24/21 Range/Units 03:06 WBC 9.2 (3.8-10.6) k/uL RBC 2.75 L (4.30-5.90) m/uL Hgb 8.6 L D (13.0-17.5) gm/dL Hct 25.4 L (39.0-53.0) % Plt Count 228 (150-450) k/uL Comprehensive Metabolic Panel 02/24/21 Range/Units 03:06 Sodium 134 L (137-145) mmol/L Potassium 3.9 (3.5-5.1) mmol/L Chloride 107 (98-107) mmol/L Carbon Dioxide 20 L (22-30) mmol/L BUN 24 H (9-20) mg/dL Creatinine 0.96 (0.66-1.25) mg/dL Glucose 140 H (74-99) mg/dL Calcium 7.9 L (8.4-10.2) mg/dL AST 17 (17-59) U/L ALT 12 (4-49) U/L Alkaline Phosphatase 76 (38-126) U/L Total Protein 5.1 L (6.3-8.2) g/dL Albumin 2.9 L (3.5-5.0) g/dL Current Medications Generic Name Dose Route Start Last Admin Trade Name Freq PRN Reason Stop Dose Admin Lactated Ringer's 1,000 mls @ 75 mls/hr 02/22/21 10:00 02/24/21 02:30 Lactated Ringers IV 75 mls/hr .[id number] [facility] Administration Insulin Aspart 0 unit 02/23/21 21:00 02/24/21 06:38 Insulin Aspart (Novolog) 100 Unit/Ml Vial SQ 2 unit ACHS [facility] Administration Protocol Miscellaneous Information 1 each 02/23/21 07:28 Magnesium Replacement Protocol 1 Each [facility] [place] PRN Per Protocol Protocol Naloxone HCl 0.2 mg 02/21/21 08:37 Naloxone 0.4 Mg/Ml 1 Ml Vial IV Q2M PRN Opioid Reversal Nitroglycerin 0.4 mg 02/21/21 08:40 Nitroglycerin Sl Tabs 0.4 Mg Tab SUBLINGUAL Q5M PRN Chest Pain Pantoprazole Sodium 40 mg 02/24/21 07:30 02/24/21 06:38 Pantoprazole 40 Mg Tablet PO 40 mg AC-BID [facility] Administration Intake and Output 02/23/21 02/24/21 02/24/21 22:59 06:59 14:59 Intake Total 450 1230 Output Total 450 400 Balance 0 830 Intake: Intake, IV Titration 450 750 Amount Lactated Ringers 1,000 ml 375 750 @ 75 mls/hr IV .[id number] [facility] Rx#:[id number] Magnesium Sulfate-D5w Pmx 75 1 gm In Dextrose/Water 1 100ml.bag @ 100 mls/hr IVPB Q1H [facility] Rx#: [id number] Oral 480 Output: Urine 450 400 Other: Voiding Method Urinal Urinal Weight 130.5 kg 02/24/21 03:06 02/24/21 03:06
--- NOTE | 2021-02-24 10:54 | P.PN ---
Subjective Progress Note Date: 02/24/21 Principal diagnosis: Acute lower GI bleeding 70-year-old male patient, presented to the emergency department because of a lower GI bleed. The patient has been having bloody stool. He underwent a screening colonoscopy approximately a week ago and he underwent a polypectomy and as of yesterday started having increased diarrhea and bloody stool proximately 768 episodes and for that reason he came into the hospital. No abdominal pain. No emesis. No nausea. He has been maintained on baby aspirin 81 mg by mouth. Home regarding previous coronary artery disease and previous coronary stenting. He is known to have multiple medical problems. He is known to have CAD with previous stenting, congestion heart failure with an ejection fraction of 30-35%, diabetes mellitus, hypertension, ischemic cardiomyopathy and the patient has a pacemaker in place. His current EKG showing a sinus rhythm with a first-degree AV block. Upon arrival to the emergency department, the patient was found that hemoglobin of 12.3. His blood pressure was in the low side. He was given a bolus of 500. There is improvement in his blood pressure improved. He received a total of 2 units of packed RBC. Currently is resting comfortably in the intensive care unit. A general surgical consultation has been obtained. He is on NSS @ 100 cc /hr 02/22/2021, THE PATIENT IS BEING SEEN IN FOLLOW-UP IN THE INTENSIVE CARE UNIT. UNFORTUNATELY, THE PATIENT HAD THE BOUT OF BLOODY movements yesterday evening earlier this morning. Another bout of a large bloody bowel movement there was bright red blood. It the patient continues to have stable vital signs. No tachycardia. No chest pain. No syncope.12.0. This blood test was done prior to his left total GI bleed. Rest of the electrodes are all stable. BUN is at 21 with a creatinine of 0.9. Electrolytes are normal. Patient currently off as pirin and off Effient. No nausea. No vomiting. No abdominal pain. He is back on being by mouth. IV fluids is running at the rate of 100 mL an hour normal saline. Patient was admitted on 02/23/2021, remains in the ICU, continues to have intermittent episodes of bright red blood per rectum, however his hemoglobin is holding at 10.8 today, patient received a total of 2 units of packed RBCs since admission. Patient was seen by surgery and recommended GI consultation. He is yet to be seen by gastroenterology possibly today. In the meantime the patient remains hemodynamically stable, no active bleeding at the time of my evaluation although he had active bleeding last night and early this morning. Patient does not seem to be in any distress, his aspirin and Effient remain on hold. Electr olytes are normal renal profile is normal CBC as noted above hemoglobin was 11.1 yesterday and it is 10.8 today. Patient was reported today on 02/24/2021, patient seems to be stable in the ICU, however he actually a pressure of bloody bowel movements, and his hemoglobin dropped down to 8.6 today. He was seen by gastroenterology yesterday, given the option of colonoscopy or observation, apparently the patient shows option of observation, and colonoscopy was not scheduled for today. However over the last 24 hours, more GI bleeding was noted, significant drop noted in the hemoglobin over the last 24 hours over 2 g. Hence may have to be revisited by gastroenterology and may have to decide on colonoscopy sometime today or tomorrow. Clinically the patient is hemodynamically stable, and in no distress. Objective - Vital Signs Vital signs: Vital Signs Temp 98.4 F 02/24/21 08:00 Pulse 89 02/24/21 08:00 Resp 16 02/24/21 08:00 BP 150/84 02/24/21 08:00 Pulse Ox 96 02/24/21 08:00 Intake & Output 02/23/21 02/24/21 02/24/21 18:59 06:59 18:59 Intake Total 1025 1380 150 Output Total 550 850 500 Balance 475 530 -350 Weight 130.5 kg Intake: Intake, IV Titration 1025 900 150 Amount Lactated Ringers 1,000 ml 750 900 150 @ 75 mls/hr IV .[id number] [facility] Rx#:[id number] Magnesium Sulfate-D5w Pmx 275 1 gm In Dextrose/Water 1 100ml.bag @ 100 mls/hr IVPB Q1H [facility] Rx#: [id number] Oral 480 Output: Urine 550 850 500 Other: Voiding Method Urinal Urinal Urinal - Exam Physical Exam: Revealed 70-year-old white male extremely pleasant in no distress sitting in bed on room air. Head: Atraumatic, normocephalic. HEENT:[Neck is supple.] [No neck masses.] [No thyromegaly.] [No JVD.] Chest: [Clear throughout, no crackles, no rhonchi, no wheezes.] Cardiac Exam: [Normal S1 and S2, no S3 gallop, no murmur.] Abdomen: [Soft, nontender, no megaly, no rebound, no guarding, normal bowel sounds.] Extremities: [No clubbing, no edema, no cyanosis.] Neurological Exam: [No focal neurologic deficit.] Alert and oriented 3. Psychiatric: Normal mood affect and normal mental status examination. Skin: No rashes. Musculoskeletal: No deformities noted limitation of range of motion. - Labs CBC & Chem 7: 02/24/21 03:06 02/24/21 03:06 Labs: Abnormal Lab Results - Last 24 Hours (Table) 02/23/21 02/23/21 02/23/21 Range/Units 11:49 16:48 20:24 RBC (4.30-5.90) m/uL Hgb (13.0-17.5) gm/dL Hct (39.0-53.0) % Sodium (137-145) mmol/L Carbon Dioxide (22-30) mmol/L BUN (9-20) mg/dL Glucose (74-99) mg/dL POC Glucose (mg/dL) 136 H 141 H 148 H (75-99) mg/dL Calcium (8.4-10.2) mg/dL Total Protein (6.3-8.2) g/dL Albumin (3.5-5.0) g/dL 02/24/21 02/24/21 02/24/21 Range/Units 03:06 03:06 06:29 RBC 2.75 L (4.30-5.90) m/uL Hgb 8.6 L D (13.0-17.5) gm/dL Hct 25.4 L (39.0-53.0) % Sodium 134 L (137-145) mmol/L Carbon Dioxide 20 L (22-30) mmol/L BUN 24 H (9-20) mg/dL Glucose 140 H (74-99) mg/dL POC Glucose (mg/dL) 168 H (75-99) mg/dL Calcium 7.9 L (8.4-10.2) mg/dL Total Protein 5.1 L (6.3-8.2) g/dL Albumin 2.9 L (3.5-5.0) g/dL Assessment and Plan Assessment: Impression: Acute lower GI bleeding in a patient with history of colonoscopy and polypectomy the most likely source of the bleeding is at the site of his previous polypectomy, Acute blood loss anemia secondary to GI bleeding required 2 units of packed RBCs so far. Coronary artery disease and previous stent placement over 3 years ago. Patient has been on aspirin and effient History of ischemic cardiomyopathy and LV dysfunction with ejection fraction of 30-35%. Benign essential hypertension. Type 2 diabetes Dyslipidemia. Recommendation: Continue IV fluids. Continue to monitor hemoglobin every 8 hours. Continue to hold aspirin and Effient. Continue sliding scale coverage. GI to reevaluate the patient again and decide on colonoscopy May transfer out of the ICU was a bed becomes available. Time with Patient: Less than 30
[2021-02-24 11:52] LABS: Glucose,Whole Blood 174 mg/dL (75-99)
[2021-02-24 11:54] LABS: HCT 21.1 % (39.0-53.0); HGB 7.3 gm/dL (13.0-17.5); MCH 31.5 pg (25.0-35.0); MCHC 34.4 g/dL (31.0-37.0); MCV 91.5 fL (80.0-100.0); Mean Platelet Volume 8.1; Platelet Count 263 k/uL (150-450); RBC 2.31 m/uL (4.30-5.90); RDW 15.5 % (11.5-15.5); WBC 9.8 k/uL (3.8-10.6)
--- NOTE | 2021-02-24 12:00 | ECHOF ---
Referral Reason:hx cardiomyopathy MEASUREMENTS -------- HEIGHT: 190.5 cm WEIGHT: 130.2 kg BP: RVIDd: 2.8 cm (< 3.3) IVSd: 1.3 cm (0.6 - 1.1) LVIDd: 3.3 cm (3.9 - 5.3) LVPWd: 1.3 cm (0.6 - 1.1) IVSs: 1.5 cm LVIDs: 2.5 cm LVPWs: 1.6 cm LAESV Index (A-L): 29.11 ml/m Ao Diam: 3.8 cm (2.0 - 3.7) AV Cusp: 2.3 cm (1.5 - 2.6) LA Diam: 4.0 cm (2.7 - 3.8) MV EXCURSION: 17.310 mm (> 18.000) MV EF SLOPE: 47 mm/s (70 - 150) EPSS: 1.0 cm MV E Arvind: 0.58 m/s MV DecT: 167 ms MV A Arvind: 0.76 m/s MV E/A Ratio: 0.76 RAP: 15.00 mmHg RVSP: 20.90 mmHg FINDINGS -------- Sinus rhythm. This was a technically adequate study. The left ventricular size is normal. There is mild concentric left ventricular hypertrophy. Overa ll left ventricular systolic function is normal with, an EF between 55 - 60 %. The diastolic fillin g pattern is normal for the age of the patient 5.89. The right ventricle is normal in size. Normal LA size by volume 22+/-6 ml/m2. The right atrial size is normal. Aneurysmal Interatrial septum. The aortic valve is trileaflet, and appears structurally normal. No aortic stenosis or regurgitation. The mitral valve is normal. There is trace mitral regurgitation. The tricuspid valve appears structurally normal. Trace tricuspid regurgitation present. Right pamela tricular systolic pressure is normal at < 35 mmHg. There is no pulmonic regurgitation present. The aortic root size is normal. The inferior vena cava is mildly dilated. There is no pericardial effusion. CONCLUSIONS -------- 1. There is mild concentric left ventricular hypertrophy. 2. Overall left ventricular systolic function is normal with, an EF between 55 - 60 %. 3. Normal LA size by volume 22+/-6 ml/m2. 4. Aneurysmal Interatrial septum. 5. The aortic valve is trileaflet, and appears structurally normal. No aortic stenosis or regurgitati on. 6. There is trace mitral regurgitation. 7. Trace tricuspid regurgitation present. 8. There is no pericardial effusion. [employer]ICAL [employer]OR[employer]IDES TEACHER: Allyson Galarza RDCS
[2021-02-24] MEDS ORDERED: PROPOFOL 10 MG/ML 20 ML VIAL IV ONE (13:41)
[2021-02-24] MEDS ORDERED: PHENYLEPHRINE-0.9% NACL SYG 1,000 MCG/10 ML SYRINGE ONE (13:41)
[2021-02-24] MEDS ORDERED: IV FLUID CONTINUATION 1,000 ML IV ONE (13:42)
[2021-02-24] MEDS ORDERED: LACTATED RINGERS 1,000 ML IV SCH (14:15)
--- NOTE | 2021-02-24 14:15 | P.PN ---
Subjective Progress Note Date: 02/24/21 Patient seen and examined at bedside. Last bloody bowel movement was early this morning and he states that it was dark maroon in color. Previous bloody bowel movement before that was at approximately 12 hours prior. Hemoglobin this morning is 8.6 and repeat a few hours after is noted at 7.3. His hemoglobin does continue to drop, he is showing no signs of hemorrhagic shock. No significant tachycardia or hypotension noted. Denies abdominal pain Objective - Vital Signs Vital signs: Vital Signs Temp 97.5 F L 02/24/21 13:30 Pulse 64 02/24/21 13:30 Resp 12 02/24/21 13:30 BP 111/83 02/24/21 13:30 Pulse Ox 98 02/24/21 13:30 Intake & Output 02/23/21 02/24/21 02/24/21 18:59 06:59 18:59 Intake Total 1025 1380 770 Output Total 550 850 500 Balance 475 530 270 Weight 130.5 kg Intake: Intake, IV Titration 1025 900 150 Amount Lactated Ringers 1,000 ml 750 900 150 @ 75 mls/hr IV .[id number] [facility] Rx#:[id number] Magnesium Sulfate-D5w Pmx 275 1 gm In Dextrose/Water 1 100ml.bag @ 100 mls/hr IVPB Q1H [facility] Rx#: [id number] Oral 480 Blood Product 620 Rc As-1 Unit 310 [id number] Rc As-1 Unit 310 [id number] Output: Urine 550 850 500 Other: Voiding Method Urinal Urinal Urinal - Constitutional General appearance: Present: cooperative, no acute distress - Respiratory Details: no difficulty with respiration - Gastrointestinal General gastrointestinal: Present: soft. Absent: tenderness - Psychiatric Psychiatric: Present: A&O x's 3 - Labs CBC & Chem 7: 02/24/21 11:19 02/24/21 03:06 Labs: Abnormal Lab Results - Last 24 Hours (Table) 02/21/21 02/23/21 02/23/21 Range/Units 06:59 16:48 20:24 RBC (4.30-5.90) m/uL Hgb (13.0-17.5) gm/dL Hct (39.0-53.0) % Sodium (137-145) mmol/L Carbon Dioxide (22-30) mmol/L BUN (9-20) mg/dL Glucose (74-99) mg/dL POC Glucose (mg/dL) 141 H 148 H (75-99) mg/dL Calcium (8.4-10.2) mg/dL Total Protein (6.3-8.2) g/dL Albumin (3.5-5.0) g/dL Crossmatch See Detail 02/24/21 02/24/21 02/24/21 Range/Units 03:06 03:06 06:29 RBC 2.75 L (4.30-5.90) m/uL Hgb 8.6 L D (13.0-17.5) gm/dL Hct 25.4 L (39.0-53.0) % Sodium 134 L (137-145) mmol/L Carbon Dioxide 20 L (22-30) mmol/L BUN 24 H (9-20) mg/dL Glucose 140 H (74-99) mg/dL POC Glucose (mg/dL) 168 H (75-99) mg/dL Calcium 7.9 L (8.4-10.2) mg/dL Total Protein 5.1 L (6.3-8.2) g/dL Albumin 2.9 L (3.5-5.0) g/dL Crossmatch 02/24/21 02/24/21 Range/Units 11:19 11:50 RBC 2.31 L (4.30-5.90) m/uL Hgb 7.3 L (13.0-17.5) gm/dL Hct 21.1 L (39.0-53.0) % Sodium (137-145) mmol/L Carbon Dioxide (22-30) mmol/L BUN (9-20) mg/dL Glucose (74-99) mg/dL POC Glucose (mg/dL) 174 H (75-99) mg/dL Calcium (8.4-10.2) mg/dL Total Protein (6.3-8.2) g/dL Albumin (3.5-5.0) g/dL Crossmatch Assessment and Plan Plan: Discussed case in depth with the patient. At this time, his hemoglobin does continue to drop, he is not showing any signs of hemorrhagic shock. He was offered colonoscopy by gastroenterology yesterday, however he chose to be observed rather than undergo a procedure. GI evaluation today is pending. Patient may require endoscopy with clipping as he is continuing to have bloody bowel movements.
--- NOTE | 2021-02-24 14:47 | P.PCN ---
Date of Procedure: 02/24/21 Description of Procedure: BRIEF HISTORY: 70-year-old male with a medical history significant for coronary artery disease status post stent placement (reports 3 years ago) on anticoagulation therapy, hypertension and diabetes mellitus who presented to the hospital with complaints of blood per rectum. The patient reports that the episodes started early on Tuesday morning and continued throughout the day. He reported a large amount of painless bright red blood per rectum. Patient was transferred to the ICU where he received 2 units of pack red blood cells and is currently hemodynamically stable. Previously the patient did have colonoscopy on 02/13/21 with hot snare polypectomy of an ascending colon polyp. He is on Effient due to a history of some placement in the past. He denies any abdominal pain. Patient is seen in the ICU today reporting that the bleeding has slowed down significantly. He only reports one episode of some dark colored blood this morning and has had no further episodes throughout the day. He denies any nausea or vomiting or other GI complaints. PROCEDURE PERFORMED: Colonoscopy. PREOPERATIVE DIAGNOSIS: Anemia of acute blood loss, lower GI bleed. ESTIMATED BLOOD LOSS: Minimal. IV sedation per Anesthesia. PROCEDURE: After informed consent was obtained, the patient, was brought into the endoscopy unit. IV sedation was administered by Anesthesia under continuous monitoring. Digital rectal examination was normal. Initially the Olympus CF-190 flexible video colonoscope was then inserted in the rectum, gradually advanced into the cecum without any difficulty. Careful examination was performed as the scope was gradually being withdrawn. Ileocecal valve and the appendiceal orifice were visualized and appeared normal. Prep was poor with hemolyzed blood noted throughout the colon. The terminal ileum was intubated with no fresh blood noted or old blood seen. Mucosa of the cecum, ascending colon, transverse colon, descending colon, sigmoid colon, and rectum which were visualized appeared normal with no active bleeding, there was however old hemolyzed blood throughout the entire visualized colon which was extensively lavaged and suctioned with no source of bleeding noted. Retroflexion was performed in the rectum and no les ions were seen. The patient tolerated the procedure well. IMPRESSION: Hemolyzed blood noted throughout the entire colon, with no fresh blood or source of bleeding found. Moderate left colonic diverticulosis. RECOMMENDATIONS: Findings of this examination were discussed with the patient .and medical team plan will be for a bowel prep tonight and repeat colonoscopy tomorrow. Patient okay for small amounts of liquids. Continue to monitor hemoglobin every 6 hours and transfuse as needed. Continue to hold anticoagulation therapy. Continue ICU care.
[2021-02-24] MEDS ORDERED: PEG 3350-NA SULF,BICARB,CL/KCL 4,000 ML BOTTLE PO ONE (15:34)
[2021-02-24 15:56] LABS: MCH 30.9 pg (25.0-35.0); MCHC 33.4 g/dL (31.0-37.0); MCV 92.7 fL (80.0-100.0); Mean Platelet Volume 7.3; Platelet Count 247 k/uL (150-450); RBC 2.92 m/uL (4.30-5.90); RDW 15.5 % (11.5-15.5); WBC 11.1 k/uL (3.8-10.6)
[2021-02-24 15:59] LABS: ALT 12 U/L (4-49); AST 19 U/L (17-59); African American GFR (CKD) >90 (>60 ml/min/1.73 sqM); Albumin 2.8 g/dL (3.5-5.0); Alkaline Phosphatase 75 U/L (38-126); Anion Gap 5 mmol/L; Blood Urea Nitrogen 22 mg/dL (9-20); Calcium 7.6 mg/dL (8.4-10.2); Carbon Dioxide 20 mmol/L (22-30); Chloride 108 mmol/L (98-107); Glucose 155 mg/dL (74-99); Magnesium 1.8 mg/dL (1.6-2.3); Non-African American GFR(CKD) 86 (>60 ml/min/1.73 sqM); Potassium 4.3 mmol/L (3.5-5.1); Sodium 133 mmol/L (137-145); Total Bilirubin 0.8 mg/dL (0.2-1.3)
--- NOTE | 2021-02-24 16:00 | P.PN ---
Subjective Progress Note Date: 02/24/21 This is a 70-year-old gentleman admitted with GI bleed, status post approximately one week post colonoscopy with polypectomy, status post 2 units of packed RBCs and multiple other medical issues. During the night patient had 2 more bright red bloody bowel movements reported 6 hours apart. Patient reports passing of bloody clot, this morning. Hemoglobin stable 10.8. Anticoagulation remains on hold. Telemetry sinus rhythm. VSS. Receiving magnesium supplementation for magnesium 1.7. Maintained on IV fluid hydration, PPI and NPO. Renal function stable. Blood sugars controlled. Denies nausea vomiting or diarrhea. Denies abdominal pain. Denies lightheadedness dizziness or focal deficits. Denies chest pain, palpitations or shortness of breath. 02/24/2021 dark maroon bowel movement earlier this morning, hemoglobin decreased to 8.6. Denies abdominal pain. Maintained on IV fluid hydration. Telemetry sinus rhythm. Colonoscopy pending per GI. Objective - Vital Signs Vital signs: Vital Signs Temp 97.5 F L 02/24/21 13:30 Pulse 66 02/24/21 15:00 Resp 14 02/24/21 15:00 BP 111/83 02/24/21 15:00 Pulse Ox 96 02/24/21 15:00 Intake & Output 02/23/21 02/24/21 02/24/21 18:59 06:59 18:59 Intake Total 1025 1380 3015 Output Total 550 850 501 Balance 029 664 7435 Weight 130.5 kg Intake: IV 400 Intake, IV Titration 1025 900 375 Amount Lactated Ringers 1,000 ml 750 900 375 @ 75 mls/hr IV .[id number] [facility] Rx#:[id number] Magnesium Sulfate-D5w Pmx 275 1 gm In Dextrose/Water 1 100ml.bag @ 100 mls/hr IVPB Q1H [facility] Rx#: [id number] Oral 480 1000 Blood Product 1240 Rc As-1 Unit 310 [id number] Rc As-1 Unit 310 [id number] Output: Urine 550 850 500 Urine/Stool Mix 1 Other: Voiding Method Urinal Urinal Incontinent # Voids 1 - Exam - Exam -GENERAL: alert and oriented x3, sitting up in bed, not in any acute distress. HEENT: Pupils are round and equally reacting to light. EOMI. No scleral icterus. No conjunctival pallor. Normocephalic, atraumatic. CARDIOVASCULAR: S1 and S2 present. No murmurs, rubs, or gallops. PULMONARY: Chest is clear to auscultation, no wheezing or crackles. ABDOMEN: Soft, nontender, distended, normoactive bowel sounds. No palpable organomegaly. EXTREMITIES: No cyanosis, clubbing, or pedal edema. NEUROLOGICAL: Gross neurological examination did not reveal any focal deficits. SKIN: No rashes. no petechiae. Warm and dry - Labs CBC & Chem 7: 02/24/21 11:19 02/24/21 03:06 Labs: Abnormal Lab Results - Last 24 Hours (Table) 02/21/21 02/23/21 02/23/21 Range/Units 06:59 16:48 20:24 RBC (4.30-5.90) m/uL Hgb (13.0-17.5) gm/dL Hct (39.0-53.0) % Sodium (137-145) mmol/L Carbon Dioxide (22-30) mmol/L BUN (9-20) mg/dL Glucose (74-99) mg/dL POC Glucose (mg/dL) 141 H 148 H (75-99) mg/dL Calcium (8.4-10.2) mg/dL Total Protein (6.3-8.2) g/dL Albumin (3.5-5.0) g/dL Crossmatch See Detail 02/24/21 02/24/21 02/24/21 Range/Units 03:06 03:06 06:29 RBC 2.75 L (4.30-5.90) m/uL Hgb 8.6 L D (13.0-17.5) gm/dL Hct 25.4 L (39.0-53.0) % Sodium 134 L (137-145) mmol/L Carbon Dioxide 20 L (22-30) mmol/L BUN 24 H (9-20) mg/dL Glucose 140 H (74-99) mg/dL POC Glucose (mg/dL) 168 H (75-99) mg/dL Calcium 7.9 L (8.4-10.2) mg/dL Total Protein 5.1 L (6.3-8.2) g/dL Albumin 2.9 L (3.5-5.0) g/dL Crossmatch 02/24/21 02/24/21 Range/Units 11:19 11:50 RBC 2.31 L (4.30-5.90) m/uL Hgb 7.3 L (13.0-17.5) gm/dL Hct 21.1 L (39.0-53.0) % Sodium (137-145) mmol/L Carbon Dioxide (22-30) mmol/L BUN (9-20) mg/dL Glucose (74-99) mg/dL POC Glucose (mg/dL) 174 H (75-99) mg/dL Calcium (8.4-10.2) mg/dL Total Protein (6.3-8.2) g/dL Albumin (3.5-5.0) g/dL Crossmatch Assessment and Plan Assessment: Acute severe lower GI bleed in a patient with recent colonoscopy with polypectomy. Acute blood loss anemia secondary to above, status post 2 unit packed RBCs Hypotension secondary to above, blood pressure stabilized Coronary artery disease , history of stenting History of ischemic cardiomyopathy, EF 30-35%, pacemaker Diabetes mellitus II Hypertension Obesity,BMI of 34.5 Plan: Continue on current medication regime ,monitoring and symptomatic treatment. NPO. Maintain IV fluid hydration .Anticoagulation remains on hold. Colonoscopy pending. Serial CBCs .Prognosis guarded given multiple complex medical issues. The impression and plan of care has been dictated as directed. : I performed a history and examination of this patient, discussed the same with the dictator. I agree with the dictator's note ,documented as a scribe. Any additional findings or plans will be noted.
[2021-02-24 16:37] LABS: Glucose,Whole Blood 153 mg/dL (75-99)
[2021-02-24 19:53] LABS: HCT 26.1 % (39.0-53.0); HGB 8.9 gm/dL (13.0-17.5); MCH 31.4 pg (25.0-35.0); MCHC 34.2 g/dL (31.0-37.0); Mean Platelet Volume 9.4; Platelet Count 187 k/uL (150-450); RBC 2.83 m/uL (4.30-5.90); RDW 15.3 % (11.5-15.5)
[2021-02-24 20:43] LABS: Glucose,Whole Blood 139 mg/dL (75-99)
[2021-02-24] MEDS: PANTOPRAZOLE 40 MG/10 ML VIAL IVP SCH (20:57)
[2021-02-24 23:28] LABS: HCT 24.6 % (39.0-53.0); MCH 29.8 pg (25.0-35.0); MCHC 32.6 g/dL (31.0-37.0); MCV 91.4 fL (80.0-100.0); Mean Platelet Volume 8.6; Platelet Count 204 k/uL (150-450); RBC 2.69 m/uL (4.30-5.90); RDW 15.3 % (11.5-15.5)
[2021-02-25 03:43] LABS: HCT 26.6 % (39.0-53.0); HGB 9.1 gm/dL (13.0-17.5); MCH 31.8 pg (25.0-35.0); MCHC 34.3 g/dL (31.0-37.0); MCV 92.7 fL (80.0-100.0); Mean Platelet Volume 7.8; Platelet Count 231 k/uL (150-450); RBC 2.87 m/uL (4.30-5.90); RDW 15.6 % (11.5-15.5); WBC 9.7 k/uL (3.8-10.6)
[2021-02-25 03:53] LABS: African American GFR (CKD) >90 (>60 ml/min/1.73 sqM); Anion Gap 7 mmol/L; Blood Urea Nitrogen 14 mg/dL (9-20); Carbon Dioxide 21 mmol/L (22-30); Chloride 108 mmol/L (98-107); Glucose 121 mg/dL (74-99); Non-African American GFR(CKD) 85 (>60 ml/min/1.73 sqM); Potassium 3.8 mmol/L (3.5-5.1); Sodium 136 mmol/L (137-145)
[2021-02-25] MEDS: POTASSIUM CHLORIDE 10 MEQ in WATER FOR INJECTION 1 100ML.BAG IVPB SCH ×2 (06:25→08:41)
[2021-02-25 06:26] LABS: Glucose,Whole Blood 134 mg/dL (75-99)
[2021-02-25] MEDS: carvediloL 6.25 MG TAB PO SCH ×2 (06:26→17:34)
[2021-02-25] MEDS: LACTATED RINGERS 1,000 ML IV SCH ×2 (06:30→20:08)
[2021-02-25] MEDS: INSULIN ASPART (NovoLOG) 100 UNIT/ML VIAL SQ SCH ×4 (06:31→20:02)
--- NOTE | 2021-02-25 07:21 | P.PN ---
Subjective Progress Note Date: 02/25/21 Patient seen and examined at bedside. Yesterday morning, did have an episode of diaphoresis and lightheadedness after further bleeding from bowel movement. He was taken to endoscopy by gastroenterology with finding of old blood throughout the colon and no active bleeding noted. Since his scope, patient has not had any additional bowel movement. He states he has not had a bowel movement for 18 hours. He did receive 2 units of packed red blood cells yesterday and hemoglobin has been stable since that time. Last hemoglobin is 9.1. Hemodynamically, patient has been stable. Objective - Vital Signs Vital signs: Vital Signs Temp 97.3 F L 02/25/21 04:00 Pulse 71 02/25/21 07:00 Resp 17 02/25/21 07:00 BP 148/77 02/25/21 07:00 Pulse Ox 95 02/25/21 07:06 Intake & Output 02/24/21 02/25/21 02/25/21 18:59 06:59 18:59 Intake Total 3240 1100 315 Output Total 1601 975 Balance 1639 125 315 Weight 133.2 kg Intake: IV 400 825 75 Lactated Ringers 1,000 ml 825 75 @ 75 mls/hr IV .[id number] [facility] Rx#:[id number] Intake, IV Titration 600 75 Amount Lactated Ringers 1,000 ml 600 75 @ 75 mls/hr IV .[id number] [facility] Rx#:[id number] Oral 1000 200 240 Blood Product 1240 Rc As-1 Unit 310 [id number] Rc As-1 Unit 310 [id number] Output: Urine 1600 975 Urine/Stool Mix 1 Other: Voiding Method Incontinent # Voids 1 - Constitutional General appearance: Present: cooperative, no acute distress - Gastrointestinal Gastrointestinal Comment(s): Soft, nontender - Psychiatric Psychiatric: Present: A&O x's 3 - Labs CBC & Chem 7: 02/25/21 03:10 02/25/21 03:10 Labs: Abnormal Lab Results - Last 24 Hours (Table) 02/21/21 02/24/21 02/24/21 Range/Units 06:59 11:19 11:50 WBC (3.8-10.6) k/uL RBC 2.31 L (4.30-5.90) m/uL Hgb 7.3 L (13.0-17.5) gm/dL Hct 21.1 L (39.0-53.0) % RDW (11.5-15.5) % Sodium (137-145) mmol/L Chloride (98-107) mmol/L Carbon Dioxide (22-30) mmol/L BUN (9-20) mg/dL Glucose (74-99) mg/dL POC Glucose (mg/dL) 174 H (75-99) mg/dL Calcium (8.4-10.2) mg/dL Total Protein (6.3-8.2) g/dL Albumin (3.5-5.0) g/dL Crossmatch See Detail 02/24/21 02/24/21 02/24/21 Range/Units 15:12 15:12 16:35 WBC 11.1 H (3.8-10.6) k/uL RBC 2.92 L (4.30-5.90) m/uL Hgb 9.0 L D (13.0-17.5) gm/dL Hct 27.0 L (39.0-53.0) % RDW (11.5-15.5) % Sodium 133 L (137-145) mmol/L Chloride 108 H (98-107) mmol/L Carbon Dioxide 20 L (22-30) mmol/L BUN 22 H (9-20) mg/dL Glucose 155 H (74-99) mg/dL POC Glucose (mg/dL) 153 H (75-99) mg/dL Calcium 7.6 L (8.4-10.2) mg/dL Total Protein 5.0 L (6.3-8.2) g/dL Albumin 2.8 L (3.5-5.0) g/dL Crossmatch 02/24/21 02/24/21 02/24/21 Range/Units 19:43 20:42 22:45 WBC 11.0 H (3.8-10.6) k/uL RBC 2.83 L 2.69 L (4.30-5.90) m/uL Hgb 8.9 L 8.0 L (13.0-17.5) gm/dL Hct 26.1 L 24.6 L (39.0-53.0) % RDW (11.5-15.5) % Sodium (137-145) mmol/L Chloride (98-107) mmol/L Carbon Dioxide (22-30) mmol/L BUN (9-20) mg/dL Glucose (74-99) mg/dL POC Glucose (mg/dL) 139 H (75-99) mg/dL Calcium (8.4-10.2) mg/dL Total Protein (6.3-8.2) g/dL Albumin (3.5-5.0) g/dL Crossmatch 02/25/21 02/25/21 02/25/21 Range/Units 03:10 03:10 06:25 WBC (3.8-10.6) k/uL RBC 2.87 L (4.30-5.90) m/uL Hgb 9.1 L (13.0-17.5) gm/dL Hct 26.6 L (39.0-53.0) % RDW 15.6 H (11.5-15.5) % Sodium 136 L (137-145) mmol/L Chloride 108 H (98-107) mmol/L Carbon Dioxide 21 L (22-30) mmol/L BUN (9-20) mg/dL Glucose 121 H (74-99) mg/dL POC Glucose (mg/dL) 134 H (75-99) mg/dL Calcium 8.0 L (8.4-10.2) mg/dL Total Protein (6.3-8.2) g/dL Albumin (3.5-5.0) g/dL Crossmatch Assessment and Plan Plan: 70-year-old male with GI bleed, likely from colonic source. Gastroenterology did perform endoscopy with colonoscopy yesterday, with no active source of bleeding noted. Patient has had stable hemoglobin since his transfusions yesterday. No further bowel movements over the past 18 hours according to the patient. Continue on clear liquid diet. Continue to follow hemoglobin. At this point, unfortunately, there is no gastroenterology service available for the rest of the week and weekend. If the patient requires any further endoscopic treatment, patient will likely require transfer to a facility with gastroenterology services.
[2021-02-25 07:25] LABS: HCT 26.2 % (39.0-53.0); HGB 8.8 gm/dL (13.0-17.5); MCH 31.1 pg (25.0-35.0); MCHC 33.6 g/dL (31.0-37.0); MCV 92.6 fL (80.0-100.0); Mean Platelet Volume 7.8; Platelet Count 235 k/uL (150-450); RBC 2.83 m/uL (4.30-5.90); RDW 15.3 % (11.5-15.5); WBC 10.6 k/uL (3.8-10.6)
[2021-02-25] MEDS: SPIRONOLACTONE 25 MG TAB PO SCH (08:15)
[2021-02-25] MEDS: PANTOPRAZOLE 40 MG/10 ML VIAL IVP SCH ×2 (08:15→20:07)
[2021-02-25] MEDS: ATORVASTATIN 80 MG TAB PO SCH (08:15)
[2021-02-25] MEDS: LOSARTAN 50 MG TAB PO SCH (08:15)
--- NOTE | 2021-02-25 10:27 | P.PN ---
Subjective HISTORY OF PRESENTING ILLNESS This is a pleasant 70-year-old male past medical history significant for non-ST elevated myocardial infarction status post PCI to the proximal LAD 2017, ischemic cardiomyopathy that improved after PCI, hypertension, dyslipidemia, diabetes mellitus and former nicotine dependence. He had previously followed in the office with Dr. Dela Cruz after his SD however he has not been to the office since 2018. We have been asked to see in consultation for anticoagulation recommendations in the setting of GI bleeding. Resented to the hospital with multiple episodes of bright red blood per rectum. He states he had a routine colonoscopy a week prior and did hold his Effient prior to the procedure and then resumed it 4 days later. He did have a snare polypectomy at that time. On arrival to the emergency department he was having copious amounts of bright red blood per rectum. He received 2 units of packed red blood cells. He is seen and examined sitting up in the intensive care unit in no acute distress. He states he did have a maroon colored stool this morning. He denies symptoms of chest pain, shortness of breath, dizziness or palpitations. EKG reveals sinus mechanism with first-degree AV block, left anterior fascicular block and heart rate of 73 with a single PVC. Chest x-ray is negative for an acute cardiopulmonary process. Laboratory data reviewed, WBC 9.2, hemoglobin 8.6, platelets 228, sodium 134, potassium 3.9, creatinine 0.96 and magnesium 1.8. Current daily cardiac medications include Coreg 6.25 mg twice a day, Aldactone 25 mg daily, losartan 20 mg daily, atorvastatin 80 mg daily and aspirin 81 mg daily. At the time of his SD his EF was 30-35% with apical septal, anteroseptal, septal and apical hypokinesia noted. He had a repeat echocardiogram 2 months later revealing wall motion abnormalities had resolved and EF was 50-55%. 02/25/2021 Pt had another episode of significant bright red blood per rectum yesterday early afternoon. He received 2 unites of PRCC and underwent colonoscopy. Revealing hemolyzed blood throughout the entire colon with no evidence of active bleeding or site of bleeding noted. No intervention required. Blood pressure 126/70 heart rate 63 afebrile maintaining oxygen saturation on room air. Laboratory data reviewed, WBC 10.6, hemoglobin 8.8, platelets 235, sodium 136, potassium 3.8 and creatinine 0.91. PHYSICAL EXAMINATION CONSTITUTIONAL: No apparent distress. HEENT: Head is normocephalic. Pupils are equal, round. Sclerae anicteric. Mucous membranes of the mouth are moist. No JVD. No carotid bruit. CHEST EXAMINATION: Lungs are clear to auscultation. No chest wall tenderness is noted on palpation or with deep breathing. HEART EXAMINATION: Regular rate and rhythm. S1, S2 heard. No murmurs, gallops or rub. EXTREMITIES: 2+ peripheral pulses, no lower extremity edema and no calf tenderness. ASSESSMENT Acute lower GI bleeding Anemia History of myocardial infarction status post PCI Coronary artery disease Hypertension Dyslipidemia Diabetes mellitus Former nicotine dependence PLAN Effient has been discontinued permanently. ASA on hold pending clinical course. This can be addressed as an outpatient when his bleeding and hemoglobin have stabilized. We will follow along as needed, please call with further questions or concerns. Nurse Practitioner note has been reviewed, I agree with a documented findings and plan of care. Patient was seen and examined. Objective - Vital Signs Vital signs: Vital Signs Temp 97.5 F L 02/25/21 08:00 Pulse 63 02/25/21 09:00 Resp 16 02/25/21 09:00 BP 126/70 02/25/21 09:00 Pulse Ox 97 02/25/21 08:00 Intake & Output 02/24/21 02/25/21 02/25/21 18:59 06:59 18:59 Intake Total 3240 1100 510 Output Total 1601 975 Balance 1639 125 510 Weight 133.2 kg Intake: IV 400 825 150 Lactated Ringers 1,000 ml 825 150 @ 75 mls/hr IV .[id number] [facility] Rx#:[id number] Intake, IV Titration 600 75 Amount Lactated Ringers 1,000 ml 600 75 @ 75 mls/hr IV .[id number] [facility] Rx#:[id number] Oral 1000 200 360 Blood Product 1240 Rc As-1 Unit 310 [id number] Rc As-1 Unit 310 [id number] Output: Urine 1600 975 Urine/Stool Mix 1 Other: Voiding Method Incontinent # Voids 1 - Labs CBC & Chem 7: 02/25/21 06:53 02/25/21 03:10 Labs: Abnormal Lab Results - Last 24 Hours (Table) 02/21/21 02/24/21 02/24/21 Range/Units 06:59 11:19 11:50 WBC (3.8-10.6) k/uL RBC 2.31 L (4.30-5.90) m/uL Hgb 7.3 L (13.0-17.5) gm/dL Hct 21.1 L (39.0-53.0) % RDW (11.5-15.5) % Sodium (137-145) mmol/L Chloride (98-107) mmol/L Carbon Dioxide (22-30) mmol/L BUN (9-20) mg/dL Glucose (74-99) mg/dL POC Glucose (mg/dL) 174 H (75-99) mg/dL Calcium (8.4-10.2) mg/dL Total Protein (6.3-8.2) g/dL Albumin (3.5-5.0) g/dL Crossmatch See Detail 02/24/21 02/24/21 02/24/21 Range/Units 15:12 15:12 16:35 WBC 11.1 H (3.8-10.6) k/uL RBC 2.92 L (4.30-5.90) m/uL Hgb 9.0 L D (13.0-17.5) gm/dL Hct 27.0 L (39.0-53.0) % RDW (11.5-15.5) % Sodium 133 L (137-145) mmol/L Chloride 108 H (98-107) mmol/L Carbon Dioxide 20 L (22-30) mmol/L BUN 22 H (9-20) mg/dL Glucose 155 H (74-99) mg/dL POC Glucose (mg/dL) 153 H (75-99) mg/dL Calcium 7.6 L (8.4-10.2) mg/dL Total Protein 5.0 L (6.3-8.2) g/dL Albumin 2.8 L (3.5-5.0) g/dL Crossmatch 02/24/21 02/24/21 02/24/21 Range/Units 19:43 20:42 22:45 WBC 11.0 H (3.8-10.6) k/uL RBC 2.83 L 2.69 L (4.30-5.90) m/uL Hgb 8.9 L 8.0 L (13.0-17.5) gm/dL Hct 26.1 L 24.6 L (39.0-53.0) % RDW (11.5-15.5) % Sodium (137-145) mmol/L Chloride (98-107) mmol/L Carbon Dioxide (22-30) mmol/L BUN (9-20) mg/dL Glucose (74-99) mg/dL POC Glucose (mg/dL) 139 H (75-99) mg/dL Calcium (8.4-10.2) mg/dL Total Protein (6.3-8.2) g/dL Albumin (3.5-5.0) g/dL Crossmatch 02/25/21 02/25/21 02/25/21 Range/Units 03:10 03:10 06:25 WBC (3.8-10.6) k/uL RBC 2.87 L (4.30-5.90) m/uL Hgb 9.1 L (13.0-17.5) gm/dL Hct 26.6 L (39.0-53.0) % RDW 15.6 H (11.5-15.5) % Sodium 136 L (137-145) mmol/L Chloride 108 H (98-107) mmol/L Carbon Dioxide 21 L (22-30) mmol/L BUN (9-20) mg/dL Glucose 121 H (74-99) mg/dL POC Glucose (mg/dL) 134 H (75-99) mg/dL Calcium 8.0 L (8.4-10.2) mg/dL Total Protein (6.3-8.2) g/dL Albumin (3.5-5.0) g/dL Crossmatch 02/25/21 Range/Units 06:53 WBC (3.8-10.6) k/uL RBC 2.83 L (4.30-5.90) m/uL Hgb 8.8 L (13.0-17.5) gm/dL Hct 26.2 L (39.0-53.0) % RDW (11.5-15.5) % Sodium (137-145) mmol/L Chloride (98-107) mmol/L Carbon Dioxide (22-30) mmol/L BUN (9-20) mg/dL Glucose (74-99) mg/dL POC Glucose (mg/dL) (75-99) mg/dL Calcium (8.4-10.2) mg/dL Total Protein (6.3-8.2) g/dL Albumin (3.5-5.0) g/dL Crossmatch
--- NOTE | 2021-02-25 10:50 | P.PN ---
Subjective Progress Note Date: 02/25/21 Principal diagnosis: Acute lower GI bleeding 70-year-old male patient, presented to the emergency department because of a lower GI bleed. The patient has been having bloody stool. He underwent a screening colonoscopy approximately a week ago and he underwent a polypectomy and as of yesterday started having increased diarrhea and bloody stool proximately 768 episodes and for that reason he came into the hospital. No abdominal pain. No emesis. No nausea. He has been maintained on baby aspirin 81 mg by mouth. Home regarding previous coronary artery disease and previous coronary stenting. He is known to have multiple medical problems. He is known to have CAD with previous stenting, congestion heart failure with an ejection fraction of 30-35%, diabetes mellitus, hypertension, ischemic cardiomyopathy and the patient has a pacemaker in place. His current EKG showing a sinus rhythm with a first-degree AV block. Upon arrival to the emergency department, the patient was found that hemoglobin of 12.3. His blood pressure was in the low side. He was given a bolus of 500. There is improvement in his blood pressure improved. He received a total of 2 units of packed RBC. Currently is resting comfortably in the intensive care unit. A general surgical consultation has been obtained. He is on NSS @ 100 cc /hr 02/22/2021, THE PATIENT IS BEING SEEN IN FOLLOW-UP IN THE INTENSIVE CARE UNIT. UNFORTUNATELY, THE PATIENT HAD THE BOUT OF BLOODY movements yesterday evening earlier this morning. Another bout of a large bloody bowel movement there was bright red blood. It the patient continues to have stable vital signs. No tachycardia. No chest pain. No syncope.12.0. This blood test was done prior to his left total GI bleed. Rest of the electrodes are all stable. BUN is at 21 with a creatinine of 0.9. Electrolytes are normal. Patient currently off as pirin and off Effient. No nausea. No vomiting. No abdominal pain. He is back on being by mouth. IV fluids is running at the rate of 100 mL an hour normal saline. Patient was admitted on 02/23/2021, remains in the ICU, continues to have intermittent episodes of bright red blood per rectum, however his hemoglobin is holding at 10.8 today, patient received a total of 2 units of packed RBCs since admission. Patient was seen by surgery and recommended GI consultation. He is yet to be seen by gastroenterology possibly today. In the meantime the patient remains hemodynamically stable, no active bleeding at the time of my evaluation although he had active bleeding last night and early this morning. Patient does not seem to be in any distress, his aspirin and Effient remain on hold. Electr olytes are normal renal profile is normal CBC as noted above hemoglobin was 11.1 yesterday and it is 10.8 today. Patient was reported today on 02/24/2021, patient seems to be stable in the ICU, however he actually a pressure of bloody bowel movements, and his hemoglobin dropped down to 8.6 today. He was seen by gastroenterology yesterday, given the option of colonoscopy or observation, apparently the patient shows option of observation, and colonoscopy was not scheduled for today. However over the last 24 hours, more GI bleeding was noted, significant drop noted in the hemoglobin over the last 24 hours over 2 g. Hence may have to be revisited by gastroenterology and may have to decide on colonoscopy sometime today or tomorrow. Clinically the patient is hemodynamically stable, and in no distress. Patient was reevaluated today on 02/25/2021, patient had colonoscopy and it was basically nondiagnostic, there was no evidence of bleeding. However in the last few days since admission, the patient did receive a total of 4 units of packed RBCs, he had few episodes of lower GI bleeding prior to his colonoscopy, but again his colonoscopy showed no evidence of active bleeding, the preparation was not very adequate, and the blanchard grinder operator was planning repeat colonoscopy with adequate prep. In the meantime the patient is hemodynamically stable, hemoglobin is holding at around 9. No active bleeding today, and no active bleeding last night. His last bleeding was about 24 hours ago. Again his colonoscopy was nondiagnostic. And in no active bleeding was found. Objective - Vital Signs Vital signs: Vital Signs Temp 97.5 F L 02/25/21 08:00 Pulse 81 02/25/21 10:00 Resp 16 02/25/21 10:00 BP 130/71 02/25/21 10:00 Pulse Ox 97 02/25/21 08:00 Intake & Output 02/24/21 02/25/21 02/25/21 18:59 06:59 18:59 Intake Total 3240 1100 720 Output Total 1601 975 Balance 1639 125 720 Weight 133.2 kg Intake: IV 400 825 300 Lactated Ringers 1,000 ml 825 300 @ 75 mls/hr IV .[id number] [facility] Rx#:[id number] Intake, IV Titration 600 75 Amount Lactated Ringers 1,000 ml 600 75 @ 75 mls/hr IV .[id number] [facility] [place] Rx#:[id number] Oral 1000 200 420 Blood Product 1240 Rc As-1 Unit 310 [id number] Rc As-1 Unit 310 [id number] Output: Urine 1600 975 Urine/Stool Mix 1 Other: Voiding Method Incontinent # Voids 1 - Exam Physical Exam: Revealed 70-year-old white male extremely pleasant in no distress sitting in bed on room air. Head: Atraumatic, normocephalic. HEENT:[Neck is supple.] [No neck masses.] [No thyromegaly.] [No JVD.] Chest: [Clear throughout, no crackles, no rhonchi, no wheezes.] Cardiac Exam: [Normal S1 and S2, no S3 gallop, no murmur.] Abdomen: [Soft, nontender, no megaly, no rebound, no guarding, normal bowel sounds.] Extremities: [No clubbing, no edema, no cyanosis.] Neurological Exam: [No focal neurologic deficit.] Alert and oriented 3. Psychiatric: Normal mood affect and normal mental status examination. Skin: No rashes. Musculoskeletal: No deformities noted limitation of range of motion. - Labs CBC & Chem 7: 02/25/21 06:53 02/25/21 03:10 Labs: Abnormal Lab Results - Last 24 Hours (Table) 02/21/21 02/24/21 02/24/21 Range/Units 06:59 11:19 11:50 WBC (3.8-10.6) k/uL RBC 2.31 L (4.30-5.90) m/uL Hgb 7.3 L (13.0-17.5) gm/dL Hct 21.1 L (39.0-53.0) % RDW (11.5-15.5) % Sodium (137-145) mmol/L Chloride (98-107) mmol/L Carbon Dioxide (22-30) mmol/L BUN (9-20) mg/dL Glucose (74-99) mg/dL POC Glucose (mg/dL) 174 H (75-99) mg/dL Calcium (8.4-10.2) mg/dL Total Protein (6.3-8.2) g/dL Albumin (3.5-5.0) g/dL Crossmatch See Detail 02/24/21 02/24/21 02/24/21 Range/Units 15:12 15:12 16:35 WBC 11.1 H (3.8-10.6) k/uL RBC 2.92 L (4.30-5.90) m/uL Hgb 9.0 L D (13.0-17.5) gm/dL Hct 27.0 L (39.0-53.0) % RDW (11.5-15.5) % Sodium 133 L (137-145) mmol/L Chloride 108 H (98-107) mmol/L Carbon Dioxide 20 L (22-30) mmol/L BUN 22 H (9-20) mg/dL Glucose 155 H (74-99) mg/dL POC Glucose (mg/dL) 153 H (75-99) mg/dL Calcium 7.6 L (8.4-10.2) mg/dL Total Protein 5.0 L (6.3-8.2) g/dL Albumin 2.8 L (3.5-5.0) g/dL Crossmatch 02/24/21 02/24/21 02/24/21 Range/Units 19:43 20:42 22:45 WBC 11.0 H (3.8-10.6) k/uL RBC 2.83 L 2.69 L (4.30-5.90) m/uL Hgb 8.9 L 8.0 L (13.0-17.5) gm/dL Hct 26.1 L 24.6 L (39.0-53.0) % RDW (11.5-15.5) % Sodium (137-145) mmol/L Chloride (98-107) mmol/L Carbon Dioxide (22-30) mmol/L BUN (9-20) mg/dL Glucose (74-99) mg/dL POC Glucose (mg/dL) 139 H (75-99) mg/dL Calcium (8.4-10.2) mg/dL Total Protein (6.3-8.2) g/dL Albumin (3.5-5.0) g/dL Crossmatch 02/25/21 02/25/21 02/25/21 Range/Units 03:10 03:10 06:25 WBC (3.8-10.6) k/uL RBC 2.87 L (4.30-5.90) m/uL Hgb 9.1 L (13.0-17.5) gm/dL Hct 26.6 L (39.0-53.0) % RDW 15.6 H (11.5-15.5) % Sodium 136 L (137-145) mmol/L Chloride 108 H (98-107) mmol/L Carbon Dioxide 21 L (22-30) mmol/L BUN (9-20) mg/dL Glucose 121 H (74-99) mg/dL POC Glucose (mg/dL) 134 H (75-99) mg/dL Calcium 8.0 L (8.4-10.2) mg/dL Total Protein (6.3-8.2) g/dL Albumin (3.5-5.0) g/dL Crossmatch 02/25/21 Range/Units 06:53 WBC (3.8-10.6) k/uL RBC 2.83 L (4.30-5.90) m/uL Hgb 8.8 L (13.0-17.5) gm/dL Hct 26.2 L (39.0-53.0) % RDW (11.5-15.5) % Sodium (137-145) mmol/L Chloride (98-107) mmol/L Carbon Dioxide (22-30) mmol/L BUN (9-20) mg/dL Glucose (74-99) mg/dL POC Glucose (mg/dL) (75-99) mg/dL Calcium (8.4-10.2) mg/dL Total Protein (6.3-8.2) g/dL Albumin (3.5-5.0) g/dL Crossmatch Assessment and Plan Assessment: Impression: Acute lower GI bleeding in a patient with history of colonoscopy and polypectomy the most likely source of the bleeding is at the site of his previous polypectomy, Acute blood loss anemia secondary to GI bleeding required 4 units of packed RBCs since admission. Coronary artery disease and previous stent placement over 3 years ago. Patient has been on aspirin and effient, these are both on hold, History of ischemic cardiomyopathy and LV dysfunction with ejection fraction of 30-35%. Benign essential hypertension. Type 2 diabetes Dyslipidemia. Recommendation: Continue IV fluids. Continue to monitor hemoglobin every 8 hours. Continue to hold aspirin and Effient. Continue sliding scale coverage. Status post colonoscopy, nondiagnostic, We'll continue to monitor in the ICU for the next 24 hours. Time with Patient: Less than 30
[2021-02-25 11:12] LABS: Glucose,Whole Blood 146 mg/dL (75-99)
[2021-02-25 11:30] LABS: HCT 23.6 % (39.0-53.0); HGB 7.9 gm/dL (13.0-17.5); MCH 30.8 pg (25.0-35.0); MCHC 33.4 g/dL (31.0-37.0); MCV 92.4 fL (80.0-100.0); Mean Platelet Volume 7.6; Platelet Count 225 k/uL (150-450); RBC 2.56 m/uL (4.30-5.90); RDW 15.5 % (11.5-15.5); WBC 9.8 k/uL (3.8-10.6)
--- NOTE | 2021-02-25 15:02 | P.PN ---
Subjective Progress Note Date: 02/25/21 This is a 70-year-old gentleman admitted with GI bleed, status post approximately one week post colonoscopy with polypectomy, status post 2 units of packed RBCs and multiple other medical issues. During the night patient had 2 more bright red bloody bowel movements reported 6 hours apart. Patient reports passing of bloody clot, this morning. Hemoglobin stable 10.8. Anticoagulation remains on hold. Telemetry sinus rhythm. VSS. Receiving magnesium supplementation for magnesium 1.7. Maintained on IV fluid hydration, PPI and NPO. Renal function stable. Blood sugars controlled. Denies nausea vomiting or diarrhea. Denies abdominal pain. Denies lightheadedness dizziness or focal deficits. Denies chest pain, palpitations or shortness of breath. 02/24/2021 dark maroon bowel movement earlier this morning, hemoglobin decreased to 8.6. Denies abdominal pain. Maintained on IV fluid hydration. Telemetry sinus rhythm. Colonoscopy pending per GI. 02/25/21 Yesterday afternoon had a large bright red bowel movement accompanied by diaphoresis, hypotension with significant drop in hemoglobin of greater than 2 g in 24 hours. Transfused with 2 units packed RBCs, and underwent colonoscopy without prep, reporting hemolyzed blood noted throughout the entire colon was no fresh blood or source of bleeding found, moderate left colonic diverticulosis. Repeat colonoscopy with prep discussed. No further bleeding reported over the last 24 hours. Hemoglobin 8.8. Denies chest pain, palpitations or shortness of breath. Denies abdominal pain. Objective - Vital Signs Vital signs: Vital Signs Temp 97.5 F L 02/25/21 12:00 Pulse 75 02/25/21 14:00 Resp 27 H 02/25/21 14:00 BP 129/98 02/25/21 14:00 Pulse Ox 97 02/25/21 14:00 Intake & Output 02/24/21 02/25/21 02/25/21 18:59 06:59 18:59 Intake Total 3240 1100 1500 Output Total 8826 443 6404 Balance 1639 125 500 Weight 133.2 kg Intake: IV 400 825 600 Lactated Ringers 1,000 ml 825 600 @ 75 mls/hr IV .[id number] [facility] Rx#:[id number] Intake, IV Titration 600 75 Amount Lactated Ringers 1,000 ml 600 75 @ 75 mls/hr IV .[id number] [facility] Rx#:[id number] Oral 1000 200 900 Blood Product 1240 As-1 Unit 310 [id number] Rc As-1 Unit 310 [id number] Output: Urine 5504 471 5611 Urine/Stool Mix 1 Other: Voiding Method Incontinent # Voids 1 - Exam - Exam GENERAL: alert and oriented x3, sitting up in bed, no acute distress. HEENT: Pupils are round and equally reacting to light. EOMI. No scleral icterus. No conjunctival pallor. Normocephalic, atraumatic. CARDIOVASCULAR: S1 and S2 present. No murmurs, rubs, or gallops. PULMONARY: Chest is clear to auscultation, no wheezing or crackles. ABDOMEN: Soft, nontender, distended, normoactive bowel sounds. No palpable organomegaly. EXTREMITIES: No cyanosis, clubbing, or pedal edema. NEUROLOGICAL: Gross neurological examination did not reveal any focal deficits. SKIN: No rashes. Warm and dry - Labs CBC & Chem 7: 02/25/21 10:44 02/25/21 03:10 Labs: Abnormal Lab Results - Last 24 Hours (Table) 02/24/21 02/24/21 02/24/21 Range/Units 15:12 15:12 16:35 WBC 11.1 H (3.8-10.6) k/uL RBC 2.92 L (4.30-5.90) m/uL Hgb 9.0 L D (13.0-17.5) gm/dL Hct 27.0 L (39.0-53.0) % RDW (11.5-15.5) % Sodium 133 L (137-145) mmol/L Chloride 108 H (98-107) mmol/L Carbon Dioxide 20 L (22-30) mmol/L BUN 22 H (9-20) mg/dL Glucose 155 H (74-99) mg/dL POC Glucose (mg/dL) 153 H (75-99) mg/dL Calcium 7.6 L (8.4-10.2) mg/dL Total Protein 5.0 L (6.3-8.2) g/dL Albumin 2.8 L (3.5-5.0) g/dL 02/24/21 02/24/21 02/24/21 Range/Units 19:43 20:42 22:45 WBC 11.0 H (3.8-10.6) k/uL RBC 2.83 L 2.69 L (4.30-5.90) m/uL Hgb 8.9 L 8.0 L (13.0-17.5) gm/dL Hct 26.1 L 24.6 L (39.0-53.0) % RDW (11.5-15.5) % Sodium (137-145) mmol/L Chloride (98-107) mmol/L Carbon Dioxide (22-30) mmol/L BUN (9-20) mg/dL Glucose (74-99) mg/dL POC Glucose (mg/dL) 139 H (75-99) mg/dL Calcium (8.4-10.2) mg/dL Total Protein (6.3-8.2) g/dL Albumin (3.5-5.0) g/dL 02/25/21 02/25/21 02/25/21 Range/Units 03:10 03:10 06:25 WBC (3.8-10.6) k/uL RBC 2.87 L (4.30-5.90) m/uL Hgb 9.1 L (13.0-17.5) gm/dL Hct 26.6 L (39.0-53.0) % RDW 15.6 H (11.5-15.5) % Sodium 136 L (137-145) mmol/L Chloride 108 H (98-107) mmol/L Carbon Dioxide 21 L (22-30) mmol/L BUN (9-20) mg/dL Glucose 121 H (74-99) mg/dL POC Glucose (mg/dL) 134 H (75-99) mg/dL Calcium 8.0 L (8.4-10.2) mg/dL Total Protein (6.3-8.2) g/dL Albumin (3.5-5.0) g/dL 02/25/21 02/25/21 02/25/21 Range/Units 06:53 10:44 11:11 WBC (3.8-10.6) k/uL RBC 2.83 L 2.56 L (4.30-5.90) m/uL Hgb 8.8 L 7.9 L (13.0-17.5) gm/dL Hct 26.2 L 23.6 L (39.0-53.0) % RDW (11.5-15.5) % Sodium (137-145) mmol/L Chloride (98-107) mmol/L Carbon Dioxide (22-30) mmol/L BUN (9-20) mg/dL Glucose (74-99) mg/dL POC Glucose (mg/dL) 146 H (75-99) mg/dL Calcium (8.4-10.2) mg/dL Total Protein (6.3-8.2) g/dL Albumin (3.5-5.0) g/dL Assessment and Plan Assessment: Acute severe lower GI bleed in a patient with recent colonoscopy with p olypectomy. Status post nondiagnostic colonoscopy with an inadequate prep. Acute blood loss anemia secondary to above, status post 4 unit packed RBCs Hypotension secondary to above, blood pressure stabilized Coronary artery disease , history of stenting History of ischemic cardiomyopathy, EF 30-35%, pacemaker Diabetes mellitus II Hypertension Obesity,BMI of 34.5 Plan: Continue on current medication regime ,monitoring and symptomatic treatment. Continue holding anticoagulation with Effient discontinued permanently per cardiology. Serial CBCs .Prognosis guarded given multiple complex medical issues. The impression and plan of care has been dictated as directed. : I performed a history and examination of this patient, discussed the same with the dictator. I agree with the dictator's note ,documented as a scribe. Any additional findings or plans will be noted.
[2021-02-25 15:52] LABS: Anisocytosis Slight; Basophils # (A) 0.1 k/uL (0-0.2); Basophils % (A) 1 %; Eosinophils # (A) 0.3 k/uL (0-0.7); Eosinophils % (A) 3 %; HCT 25.3 % (39.0-53.0); HGB 8.6 gm/dL (13.0-17.5); Lymphocytes # (A) 1.5 k/uL (1.0-4.8); Lymphocytes % (A) 15 %; MCH 31.2 pg (25.0-35.0); MCHC 33.9 g/dL (31.0-37.0); Monocytes # (A) 0.7 k/uL (0-1.0); Monocytes % (A) 7 %; Neutrophils # (A) 7.1 k/uL (1.3-7.7); Neutrophils % (A) 72 %; Platelet Count 262 k/uL (150-450); RBC 2.75 m/uL (4.30-5.90); RDW 16.3 % (11.5-15.5); WBC 9.9 k/uL (3.8-10.6)
[2021-02-25 17:19] LABS: Glucose,Whole Blood 136 mg/dL (75-99)
[2021-02-25 19:59] LABS: Anisocytosis Slight; Basophils % (A) 0 %; Eosinophils # (A) 0.3 k/uL (0-0.7); Eosinophils % (A) 3 %; HCT 24.3 % (39.0-53.0); HGB 8.2 gm/dL (13.0-17.5); Lymphocytes # (A) 1.6 k/uL (1.0-4.8); Lymphocytes % (A) 17 %; MCH 31.2 pg (25.0-35.0); MCV 91.8 fL (80.0-100.0); Mean Platelet Volume 8.8; Monocytes # (A) 0.6 k/uL (0-1.0); Monocytes % (A) 6 %; Neutrophils # (A) 6.7 k/uL (1.3-7.7); Neutrophils % (A) 72 %; Platelet Count 236 k/uL (150-450); RBC 2.64 m/uL (4.30-5.90); RDW 16.4 % (11.5-15.5); WBC 9.4 k/uL (3.8-10.6)
[2021-02-25 20:03] LABS: Glucose,Whole Blood 135 mg/dL (75-99)
[2021-02-25 23:57] LABS: Anisocytosis Slight; Basophils # (A) 0.1 k/uL (0-0.2); Basophils % (A) 1 %; Eosinophils # (A) 0.3 k/uL (0-0.7); Eosinophils % (A) 3 %; HCT 24.4 % (39.0-53.0); HGB 8.3 gm/dL (13.0-17.5); Lymphocytes # (A) 1.7 k/uL (1.0-4.8); Lymphocytes % (A) 16 %; MCH 31.2 pg (25.0-35.0); MCHC 33.9 g/dL (31.0-37.0); MCV 91.9 fL (80.0-100.0); Mean Platelet Volume 7.9; Monocytes # (A) 0.6 k/uL (0-1.0); Monocytes % (A) 6 %; Neutrophils # (A) 7.2 k/uL (1.3-7.7); Neutrophils % (A) 72 %; Platelet Count 265 k/uL (150-450); RBC 2.65 m/uL (4.30-5.90); RDW 16.3 % (11.5-15.5); WBC 10.1 k/uL (3.8-10.6)
[2021-02-26 04:35] LABS: Anisocytosis Slight; Basophils % (A) 1 %; Eosinophils # (A) 0.3 k/uL (0-0.7); Eosinophils % (A) 3 %; HGB 8.3 gm/dL (13.0-17.5); Lymphocytes # (A) 1.3 k/uL (1.0-4.8); Lymphocytes % (A) 16 %; MCH 31.7 pg (25.0-35.0); MCHC 34.6 g/dL (31.0-37.0); MCV 91.8 fL (80.0-100.0); Mean Platelet Volume 9.2; Monocytes # (A) 0.6 k/uL (0-1.0); Monocytes % (A) 7 %; Neutrophils # (A) 5.8 k/uL (1.3-7.7); Neutrophils % (A) 72 %; Platelet Count 222 k/uL (150-450); RBC 2.61 m/uL (4.30-5.90); RDW 16.5 % (11.5-15.5); WBC 8.2 k/uL (3.8-10.6)
[2021-02-26 04:55] LABS: African American GFR (CKD) >90 (>60 ml/min/1.73 sqM); Albumin 2.7 g/dL (3.5-5.0); Anion Gap 6 mmol/L; Blood Urea Nitrogen 7 mg/dL (9-20); Calcium 8.1 mg/dL (8.4-10.2); Carbon Dioxide 22 mmol/L (22-30); Chloride 107 mmol/L (98-107); Glucose 132 mg/dL (74-99); Magnesium 1.7 mg/dL (1.6-2.3); Non-African American GFR(CKD) 85 (>60 ml/min/1.73 sqM); Potassium 3.5 mmol/L (3.5-5.1); Sodium 135 mmol/L (137-145); Total Bilirubin 0.8 mg/dL (0.2-1.3); Total Protein 4.9 g/dL (6.3-8.2)
[2021-02-26 04:56] LABS: ALT 12 U/L (4-49); AST 18 U/L (17-59); Alkaline Phosphatase 79 U/L (38-126)
[2021-02-26] MEDS ORDERED: Potassium Replacement Protocol 1 EACH MISC MISCELLANE PRN (05:12)
[2021-02-26] MEDS: POTASSIUM BICARBONATE/CIT AC 20 MEQ TABLET.EFF NG-TUBE SCH ×2 (05:41→06:42)
[2021-02-26] MEDS: LACTATED RINGERS 1,000 ML IV SCH (05:46)
[2021-02-26 06:40] LABS: Glucose,Whole Blood 141 mg/dL (75-99)
[2021-02-26] MEDS: carvediloL 6.25 MG TAB PO SCH ×2 (06:41→17:28)
[2021-02-26] MEDS: MAGNESIUM SULFATE-D5W PMX 1 GM in DEXTROSE/WATER 1 100ML.BAG IVPB SCH ×2 (06:41→07:54)
[2021-02-26] MEDS: INSULIN ASPART (NovoLOG) 100 UNIT/ML VIAL SQ SCH ×4 (06:41→19:49)
[2021-02-26] MEDS: SPIRONOLACTONE 25 MG TAB PO SCH (07:54)
[2021-02-26] MEDS: LOSARTAN 50 MG TAB PO SCH (07:54)
[2021-02-26] MEDS: PANTOPRAZOLE 40 MG/10 ML VIAL IVP SCH ×2 (07:54→19:49)
[2021-02-26] MEDS: ATORVASTATIN 80 MG TAB PO SCH (07:54)
[2021-02-26 11:07] VITALS: BMI 34.7
[2021-02-26 11:18] LABS: Glucose,Whole Blood 136 mg/dL (75-99)
--- NOTE | 2021-02-26 11:46 | P.PN ---
Subjective Progress Note Date: 02/26/21 Principal diagnosis: Acute lower GI bleeding 70-year-old male patient, presented to the emergency department because of a lower GI bleed. The patient has been having bloody stool. He underwent a screening colonoscopy approximately a week ago and he underwent a polypectomy and as of yesterday started having increased diarrhea and bloody stool proximately 768 episodes and for that reason he came into the hospital. No abdominal pain. No emesis. No nausea. He has been maintained on baby aspirin 81 mg by mouth. Home regarding previous coronary artery disease and previous coronary stenting. He is known to have multiple medical problems. He is known to have CAD with previous stenting, congestion heart failure with an ejection fraction of 30-35%, diabetes mellitus, hypertension, ischemic cardiomyopathy and the patient has a pacemaker in place. His current EKG showing a sinus rhythm with a first-degree AV block. Upon arrival to the emergency department, the patient was found that hemoglobin of 12.3. His blood pressure was in the low side. He was given a bolus of 500. There is improvement in his blood pressure improved. He received a total of 2 units of packed RBC. Currently is resting comfortably in the intensive care unit. A general surgical consultation has been obtained. He is on NSS @ 100 cc /hr 02/22/2021, THE PATIENT IS BEING SEEN IN FOLLOW-UP IN THE INTENSIVE CARE UNIT. UNFORTUNATELY, THE PATIENT HAD THE BOUT OF BLOODY movements yesterday evening earlier this morning. Another bout of a large bloody bowel movement there was bright red blood. It the patient continues to have stable vital signs. No tachycardia. No chest pain. No syncope.12.0. This blood test was done prior to his left total GI bleed. Rest of the electrodes are all stable. BUN is at 21 with a creatinine of 0.9. Electrolytes are normal. Patient currently off as pirin and off Effient. No nausea. No vomiting. No abdominal pain. He is back on being by mouth. IV fluids is running at the rate of 100 mL an hour normal saline. Patient was admitted on 02/23/2021, remains in the ICU, continues to have intermittent episodes of bright red blood per rectum, however his hemoglobin is holding at 10.8 today, patient received a total of 2 units of packed RBCs since admission. Patient was seen by surgery and recommended GI consultation. He is yet to be seen by gastroenterology possibly today. In the meantime the patient remains hemodynamically stable, no active bleeding at the time of my evaluation although he had active bleeding last night and early this morning. Patient does not seem to be in any distress, his aspirin and Effient remain on hold. Electr olytes are normal renal profile is normal CBC as noted above hemoglobin was 11.1 yesterday and it is 10.8 today. Patient was reported today on 02/24/2021, patient seems to be stable in the ICU, however he actually a pressure of bloody bowel movements, and his hemoglobin dropped down to 8.6 today. He was seen by gastroenterology yesterday, given the option of colonoscopy or observation, apparently the patient shows option of observation, and colonoscopy was not scheduled for today. However over the last 24 hours, more GI bleeding was noted, significant drop noted in the hemoglobin over the last 24 hours over 2 g. Hence may have to be revisited by gastroenterology and may have to decide on colonoscopy sometime today or tomorrow. Clinically the patient is hemodynamically stable, and in no distress. Patient was reevaluated today on 02/25/2021, patient had colonoscopy and it was basically nondiagnostic, there was no evidence of bleeding. However in the last few days since admission, the patient did receive a total of 4 units of packed RBCs, he had few episodes of lower GI bleeding prior to his colonoscopy, but again his colonoscopy showed no evidence of active bleeding, the preparation was not very adequate, and the physician practice market manager was planning repeat colonoscopy with adequate prep. In the meantime the patient is hemodynamically stable, hemoglobin is holding at around 9. No active bleeding today, and no active bleeding last night. His last bleeding was about 24 hours ago. Again his colonoscopy was nondiagnostic. And in no active bleeding was found. Patient was reevaluated today on 02/26/2021, patient had no further episodes of GI bleeding, hemoglobin has been stable for the last 24 hours, hence I'm going to clear the patient to be discharged home today. Patient had to be cleared by gastroenterology and by surgery on the case. From my perspective, I believe the patient could be discharged home, and follow-up on outpatient basis with a physician practice market manager and with his primary care physician. Objective - Vital Signs Vital signs: Vital Signs Temp 97.6 F 02/26/21 08:00 Pulse 63 02/26/21 10:00 Resp 12 02/26/21 10:00 BP 116/69 02/26/21 10:00 Pulse Ox 97 02/26/21 10:00 Intake & Output 02/25/21 02/26/21 02/26/21 18:59 06:59 18:59 Intake Total 1800 825 420 Output Total 1350 1750 500 Balance 450 -925 -80 Weight 132.8 kg 132.8 kg Intake: IV 900 825 300 Lactated Ringers 1,000 ml 900 825 300 @ 75 mls/hr IV .[id number] [facility] Rx#:[id number] Oral 900 120 Output: Urine 1350 1750 500 - Exam Physical Exam: Revealed 70-year-old white male extremely pleasant in no distress . Remains on room air. Head: Atraumatic, normocephalic. HEENT:[Neck is supple.] [No neck masses.] [No thyromegaly.] [No JVD.] Chest: [Clear throughout, no crackles, no rhonchi, no wheezes.] Cardiac Exam: [Normal S1 and S2, no S3 gallop, no murmur.] Abdomen: [Soft, nontender, no megaly, no rebound, no guarding, normal bowel sounds.] Extremities: [No clubbing, no edema, no cyanosis.] Neurological Exam: [No focal neurologic deficit.] Alert and oriented 3. Psychiatric: Normal mood affect and normal mental status examination. Skin: No rashes. - Labs CBC & Chem 7: 02/26/21 04:23 02/26/21 04:23 Labs: Abnormal Lab Results - Last 24 Hours (Table) 02/25/21 02/25/21 02/25/21 Range/Units 15:41 17:18 19:34 RBC 2.75 L 2.64 L (4.30-5.90) m/uL Hgb 8.6 L 8.2 L (13.0-17.5) gm/dL Hct 25.3 L 24.3 L (39.0-53.0) % RDW 16.3 H 16.4 H (11.5-15.5) % Sodium (137-145) mmol/L BUN (9-20) mg/dL Glucose (74-99) mg/dL POC Glucose (mg/dL) 136 H (75-99) mg/dL Calcium (8.4-10.2) mg/dL Total Protein (6.3-8.2) g/dL Albumin (3.5-5.0) g/dL 02/25/21 02/25/21 02/26/21 Range/Units 20:01 23:34 04:23 RBC 2.65 L 2.61 L (4.30-5.90) m/uL Hgb 8.3 L 8.3 L (13.0-17.5) gm/dL Hct 24.4 L 24.0 L (39.0-53.0) % RDW 16.3 H 16.5 H (11.5-15.5) % Sodium (137-145) mmol/L BUN (9-20) mg/dL Glucose (74-99) mg/dL POC Glucose (mg/dL) 135 H (75-99) mg/dL Calcium (8.4-10.2) mg/dL Total Protein (6.3-8.2) g/dL Albumin (3.5-5.0) g/dL 02/26/21 02/26/21 02/26/21 Range/Units 04:23 06:39 11:17 RBC (4.30-5.90) m/uL Hgb (13.0-17.5) gm/dL Hct (39.0-53.0) % RDW (11.5-15.5) % Sodium 135 L (137-145) mmol/L BUN 7 L (9-20) mg/dL Glucose 132 H (74-99) mg/dL POC Glucose (mg/dL) 141 H 136 H (75-99) mg/dL Calcium 8.1 L (8.4-10.2) mg/dL Total Protein 4.9 L (6.3-8.2) g/dL Albumin 2.7 L (3.5-5.0) g/dL Assessment and Plan Assessment: Impression: Acute lower GI bleeding in a patient with history of colonoscopy and polypectomy the most likely source of the bleeding is at the site of his previous polypectomy, Acute blood loss anemia secondary to GI bleeding required 4 units of packed RBCs since admission. Coronary artery disease and previous stent placement over 3 years ago. Patient has been on aspirin and effient, these are both on hold, History of ischemic cardiomyopathy and LV dysfunction with ejection fraction of 30-35%. Benign essential hypertension. Type 2 diabetes Dyslipidemia. Recommendation: Considering the patient is stable, no active bleeding, I believe the patient could be discharged home if cleared by other consultants. Patient has to be cleared by gastroenterology, surgery, and his primary care physician/admitting physician. We will sign off for now, and follow-up on when necessary basis. Time with Patient: Less than 30
--- NOTE | 2021-02-26 12:54 | P.PN ---
Subjective Progress Note Date: 02/26/21 This is a 70-year-old gentleman admitted with GI bleed, status post approximately one week post colonoscopy with polypectomy, status post 2 units of packed RBCs and multiple other medical issues. During the night patient had 2 more bright red bloody bowel movements reported 6 hours apart. Patient reports passing of bloody clot, this morning. Hemoglobin stable 10.8. Anticoagulation remains on hold. Telemetry sinus rhythm. VSS. Receiving magnesium supplementation for magnesium 1.7. Maintained on IV fluid hydration, PPI and NPO. Renal function stable. Blood sugars controlled. Denies nausea vomiting or diarrhea. Denies abdominal pain. Denies lightheadedness dizziness or focal deficits. Denies chest pain, palpitations or shortness of breath. 02/24/2021 dark maroon bowel movement earlier this morning, hemoglobin decreased to 8.6. Denies abdominal pain. Maintained on IV fluid hydration. Telemetry sinus rhythm. Colonoscopy pending per GI. 02/25/21 Yesterday afternoon had a large bright red bowel movement accompanied by diaphoresis, hypotension with significant drop in hemoglobin of greater than 2 g in 24 hours. Transfused with 2 units packed RBCs, and underwent colonoscopy without prep, reporting hemolyzed blood noted throughout the entire colon was no fresh blood or source of bleeding found, moderate left colonic diverticulosis. Repeat colonoscopy with prep discussed. No further bleeding reported over the last 24 hours. Hemoglobin 8.8. Denies chest pain, palpitations or shortness of breath. Denies abdominal pain. 02/26/21 Brown bowel movement this am with no further bleeding reported. Hemoglobin 8.3 early this morning, current levels pending. Continues on clear l iquid diet with no nausea vomiting or diarrhea. Denies abdominal pain. Denies chest pain, palpitations or palpitations. Denies lightheadedness, dizziness or focal deficits. Objective - Vital Signs Vital signs: Vital Signs Temp 97.6 F 02/26/21 08:00 Pulse 62 02/26/21 09:00 Resp 19 02/26/21 09:00 BP 122/87 02/26/21 09:00 Pulse Ox 96 02/26/21 08:00 Intake & Output 02/25/21 02/26/21 02/26/21 18:59 06:59 18:59 Intake Total 1800 825 345 Output Total 1350 1750 Balance 450 -925 345 Weight 132.8 kg Intake: IV 900 825 225 Lactated Ringers 1,000 ml 900 825 225 @ 75 mls/hr IV .[id number] [facility] Rx#:[id number] Oral 900 120 Output: Urine 1350 1750 - Exam - Exam GENERAL: alert and oriented x3, sitting up in bed, no acute distress. HEENT: Atraumatic ,Pupils are round and equally reacting to light. EOMI. No scleral icterus. No conjunctival pallor. CARDIOVASCULAR: S1 and S2 present. No murmurs, rubs, or gallops. PULMONARY: Chest is clear to auscultation, no wheezing or crackles. ABDOMEN: Soft, nontender, distended, normoactive bowel sounds. No palpable organomegaly. EXTREMITIES: No cyanosis, clubbing, or pedal edema. NEUROLOGICAL: Gross neurological examination did not reveal any focal deficits. SKIN: No rashes. Warm and dry - Labs CBC & Chem 7: 02/26/21 04:23 02/26/21 04:23 Labs: Abnormal Lab Results - Last 24 Hours (Table) 02/25/21 02/25/21 02/25/21 Range/Units 10:44 11:11 15:41 RBC 2.56 L 2.75 L (4.30-5.90) m/uL Hgb 7.9 L 8.6 L (13.0-17.5) gm/dL Hct 23.6 L 25.3 L (39.0-53.0) % RDW 16.3 H (11.5-15.5) % Sodium (137-145) mmol/L BUN (9-20) mg/dL Glucose (74-99) mg/dL POC Glucose (mg/dL) 146 H (75-99) mg/dL Calcium (8.4-10.2) mg/dL Total Protein (6.3-8.2) g/dL Albumin (3.5-5.0) g/dL 02/25/21 02/25/21 02/25/21 Range/Units 17:18 19:34 20:01 RBC 2.64 L (4.30-5.90) m/uL Hgb 8.2 L (13.0-17.5) gm/dL Hct 24.3 L (39.0-53.0) % RDW 16.4 H (11.5-15.5) % Sodium (137-145) mmol/L BUN (9-20) mg/dL Glucose (74-99) mg/dL POC Glucose (mg/dL) 136 H 135 H (75-99) mg/dL Calcium (8.4-10.2) mg/dL Total Protein (6.3-8.2) g/dL Albumin (3.5-5.0) g/dL 02/25/21 02/26/21 02/26/21 Range/Units 23:34 04:23 04:23 RBC 2.65 L 2.61 L (4.30-5.90) m/uL Hgb 8.3 L 8.3 L (13.0-17.5) gm/dL Hct 24.4 L 24.0 L (39.0-53.0) % RDW 16.3 H 16.5 H (11.5-15.5) % Sodium 135 L (137-145) mmol/L BUN 7 L (9-20) mg/dL Glucose 132 H (74-99) mg/dL POC Glucose (mg/dL) (75-99) mg/dL Calcium 8.1 L (8.4-10.2) mg/dL Total Protein 4.9 L (6.3-8.2) g/dL Albumin 2.7 L (3.5-5.0) g/dL 02/26/21 Range/Units 06:39 RBC (4.30-5.90) m/uL Hgb (13.0-17.5) gm/dL Hct (39.0-53.0) % RDW (11.5-15.5) % Sodium (137-145) mmol/L BUN (9-20) mg/dL Glucose (74-99) mg/dL POC Glucose (mg/dL) 141 H (75-99) mg/dL Calcium (8.4-10.2) mg/dL Total Protein (6.3-8.2) g/dL Albumin (3.5-5.0) g/dL Assessment and Plan Assessment: Acute severe lower GI bleed in a patient with recent colonoscopy with polypectomy. Status post nondiagnostic colonoscopy with an inadequate prep. Acute blood loss anemia secondary to above, status post 4 unit packed RBCs Hypotension secondary to above, blood pressure stabilized Coronary artery disease , history of stenting History of ischemic cardiomyopathy, EF 30-35%, pacemaker Diabetes mellitus II Hypertension Obesity,BMI of 34.5 Plan: Continue on current medication regime ,monitoring and symptomatic t reatment. Patient has only been on clear liquids. Advance diet and continue monitoring -Serial CBCs. discharge planning in progress pending clearance from surgery. (No GI service at this site today.) The impression and plan of care has been dictated as directed. : I performed a history and examination of this patient, discussed the same with the dictator. I agree with the dictator's note ,documented as a scribe. Any additional findings or plans will be noted.
--- NOTE | 2021-02-26 12:58 | P.PN ---
Subjective Progress Note Date: 02/26/21 Patient seen and examined at bedside. States he has not had any further bloody bowel movements. Hemoglobin has stabilized at 8.3. Last bowel movement was brown in color. Patient denies any abdominal pain. Objective - Vital Signs Vital signs: Vital Signs Temp 97.6 F 02/26/21 12:00 Pulse 66 02/26/21 11:00 Resp 24 02/26/21 12:00 BP 123/82 02/26/21 12:00 Pulse Ox 97 02/26/21 12:00 Intake & Output 02/25/21 02/26/21 02/26/21 18:59 06:59 18:59 Intake Total 1800 825 570 Output Total 1350 1750 500 Balance 450 -925 70 Weight 132.8 kg 132.8 kg Intake: IV 900 825 450 Lactated Ringers 1,000 ml 900 825 450 @ 75 mls/hr IV .[id number] [facility] Rx#:[id number] Oral 900 120 Output: Urine 1350 1750 500 - Constitutional General appearance: Present: cooperative, no acute distress - Gastrointestinal General gastrointestinal: Present: soft. Absent: tenderness - Labs CBC & Chem 7: 02/26/21 04:23 02/26/21 04:23 Labs: Abnormal Lab Results - Last 24 Hours (Table) 02/25/21 02/25/21 02/25/21 Range/Units 15:41 17:18 19:34 RBC 2.75 L 2.64 L (4.30-5.90) m/uL Hgb 8.6 L 8.2 L (13.0-17.5) gm/dL Hct 25.3 L 24.3 L (39.0-53.0) % RDW 16.3 H 16.4 H (11.5-15.5) % Sodium (137-145) mmol/L BUN (9-20) mg/dL Glucose (74-99) mg/dL POC Glucose (mg/dL) 136 H (75-99) mg/dL Calcium (8.4-10.2) mg/dL Total Protein (6.3-8.2) g/dL Albumin (3.5-5.0) g/dL 02/25/21 02/25/21 02/26/21 Range/Units 20:01 23:34 04:23 RBC 2.65 L 2.61 L (4.30-5.90) m/uL Hgb 8.3 L 8.3 L (13.0-17.5) gm/dL Hct 24.4 L 24.0 L (39.0-53.0) % RDW 16.3 H 16.5 H (11.5-15.5) % Sodium (137-145) mmol/L BUN (9-20) mg/dL Glucose (74-99) mg/dL POC Glucose (mg/dL) 135 H (75-99) mg/dL Calcium (8.4-10.2) mg/dL Total Protein (6.3-8.2) g/dL Albumin (3.5-5.0) g/dL 02/26/21 02/26/21 02/26/21 Range/Units 04:23 06:39 11:17 RBC (4.30-5.90) m/uL Hgb (13.0-17.5) gm/dL Hct (39.0-53.0) % RDW (11.5-15.5) % Sodium 135 L (137-145) mmol/L BUN 7 L (9-20) mg/dL Glucose 132 H (74-99) mg/dL POC Glucose (mg/dL) 141 H 136 H (75-99) mg/dL Calcium 8.1 L (8.4-10.2) mg/dL Total Protein 4.9 L (6.3-8.2) g/dL Albumin 2.7 L (3.5-5.0) g/dL Assessment and Plan Plan: 70-year-old male with GI bleed. GI bleed symptoms appear to have resolved. Hemoglobin is stabilized. Patient's diet to be advanced. If continued clinical progress, he will be stable for discharge tomorrow from surgical perspective.
[2021-02-26 16:23] LABS: Glucose,Whole Blood 154 mg/dL (75-99)
[2021-02-26 19:48] LABS: Glucose,Whole Blood 145 mg/dL (75-99)
[2021-02-27 03:59] LABS: Anisocytosis Slight; Basophils # (A) 0.1 k/uL (0-0.2); Basophils % (A) 1 %; Eosinophils # (A) 0.3 k/uL (0-0.7); Eosinophils % (A) 4 %; HCT 24.6 % (39.0-53.0); HGB 8.2 gm/dL (13.0-17.5); Lymphocytes # (A) 1.5 k/uL (1.0-4.8); Lymphocytes % (A) 15 %; MCH 31.2 pg (25.0-35.0); MCHC 33.5 g/dL (31.0-37.0); MCV 93.1 fL (80.0-100.0); Mean Platelet Volume 8.6; Monocytes # (A) 0.7 k/uL (0-1.0); Monocytes % (A) 7 %; Neutrophils # (A) 6.9 k/uL (1.3-7.7); Neutrophils % (A) 71 %; Platelet Count 265 k/uL (150-450); Poikilocytosis Slight; RBC 2.65 m/uL (4.30-5.90); RDW 16.9 % (11.5-15.5); WBC 9.7 k/uL (3.8-10.6)
[2021-02-27 06:53] LABS: Glucose,Whole Blood 139 mg/dL (75-99)
[2021-02-27] MEDS: INSULIN ASPART (NovoLOG) 100 UNIT/ML VIAL SQ SCH (06:55)
[2021-02-27] MEDS: carvediloL 6.25 MG TAB PO SCH (06:55)
[2021-02-27 08:16] VITALS: BP 117/73; PULSE 71; RESP 16; TEMP 98.2
[2021-02-27] MEDS: ATORVASTATIN 80 MG TAB PO SCH (08:16)
[2021-02-27] MEDS: LOSARTAN 50 MG TAB PO SCH (08:16)
[2021-02-27] MEDS: PANTOPRAZOLE 40 MG/10 ML VIAL IVP SCH (08:16)
[2021-02-27] MEDS: SPIRONOLACTONE 25 MG TAB PO SCH (08:16)
--- NOTE | 2021-02-27 13:06 | P.DS ---
Providers Date of admission: 02/21/21 08:37 Expected date of discharge: 02/27/21 Attending physician: Alex Archer Consults: 02/21/21 08:37 Consult Physician Stat Consulting Provider: Sherice Monique Consult Reason/Comments: ICU management of GI bleed Do you want consulting provider notified?: Already Contacted Consult Physician Urgent Consulting Provider: Jd Baeza Consult Reason/Comments: Lower GI bleed Do you want consulting provider notified?: Already Contacted 02/23/21 07:50 Consult Physician Stat Consulting Provider: Javon Hankins Consult Reason/Comments: GI Bleed Do you want consulting provider notified?: Yes 02/23/21 16:35 Consult Physician Routine Consulting Provider: Liv Dela Cruz Consult Reason/Comments: history of stent, need for anticoagulation Do you want consulting provider notified?: Yes, Notify in am Primary care physician: Alex Archer [facility] Course: Final Diagnoses: Acute severe lower GI bleed in a patient with recent colonoscopy with polypectomy. Status post nondiagnostic colonoscopy with an inadequate prep. Acute blood loss anemia secondary to above, status post 4 unit packed RBCs Hypotension secondary to above, blood pressure stabilized Coronary artery disease , history of stenting History of ischemic cardiomyopathy, EF 30-35%, pacemaker Diabetes mellitus II Hypertension Obesity,BMI of 34.5 Hospital course:This is a 70-year-old gentleman admitted with GI bleed, status post approximately one week post colonoscopy with polypectomy, status post 2 units of packed RBCs and multiple other medical issues. During the night patient had 2 more bright red bloody bowel movements reported 6 hours apart. Patient reports passing of bloody clot, this morning. Hemoglobin stable 10.8. Anticoagulation remains on hold. Telemetry sinus rhythm. VSS. Receiving magnesium supplementation for magnesium 1.7. Maintained on IV fluid hydration, PPI and NPO. Renal function stable. Blood sugars controlled. Denies nausea vomiting or diarrhea. Denies abdominal pain. Denies lightheadedness dizziness or focal deficits. Denies chest pain, palpitations or shortness of breath. 02/24/2021 dark maroon bowel movement earlier this morning, hemoglobin decreased to 8.6. Denies abdominal pain. Maintained on IV fluid hydration. Telemetry sinus rhythm. Colonoscopy pending per GI. 02/25/21 Yesterday afternoon had a large bright red bowel movement accompanied by diaphoresis, hypotension with significant drop in hemoglobin of greater than 2 g in 24 hours. Transfused with 2 units packed RBCs, and underwent colonoscopy without prep, reporting hemolyzed blood noted throughout the entire colon was no fresh blood or source of bleeding found, moderate left colonic diverticulosis. Repeat colonoscopy with prep discussed. No further bleeding reported over the last 24 hours. Hemoglobin 8.8. Denies chest pain, palpitations or shortness of breath. Denies abdominal pain. 02/26/21 Brown bowel movement this am with no further bleeding reported. Hemoglobin 8.3 early this morning, current levels pending. Continues on clear liquid diet with no nausea vomiting or diarrhea. Denies abdominal pain. Denies chest pain, palpitations or palpitations. Denies lightheadedness, dizziness or focal deficits. 02/27/2021 significant clinical improvement. Patient tolerated diet advancement. Denies any further bleeding, hemoglobin/platelets stable, 8.2/265. Denies any lightheadedness, dizziness or focal deficits. Denies any chest pain, palpitations or shortness of breath. Patient will be discharged home today in stable condition with guarded prognosis pending general surgery's clearance. Patient has been advised to remain off of anticoagulation( ASA)-to be further addressed in clinic with Dr. Archer, PCP. The impression and plan of care has been dictated as directed. : I performed a history and examination of this patient, discussed the same with the dictator. I agree with the dictator's note ,documented as a scribe. Any additional findings or plans will be noted. Patient Condition at Discharge: Stable Plan - Discharge Summary Discharge Rx Participant: No New Discharge Prescriptions: New Pantoprazole Sodium [Protonix] 40 mg PO BID #60 tablet.dr Continue Escitalopram [Lexapro] 20 mg PO DAILY metFORMIN HCL [Glucophage] 1,000 mg PO DAILY Spironolactone [Aldactone] 25 mg PO DAILY #30 tab Olmesartan Medoxomil 20 mg PO DAILY Atorvastatin Calcium [Lipitor] 80 mg PO DAILY carvediloL [Coreg] 6.25 mg PO AC-BID Doxylamine Succinate [Unisom] 50 mg PO HS Nitroglycerin Sl Tabs [Nitrostat] 0.4 mg SL Q5M PRN PRN Reason: Chest Pain metFORMIN HCL 500 mg PO HS Imiquimod [Aldara] 1 packet TOPICAL MOWEFR Ammonium Lactate Cream [Lac-Hydrin 12% Cream] 1 applic TOPICAL DAILY PRN PRN Reason: Dry Skin Discontinued Aspirin 81 mg PO DAILY Prasugrel [Effient] 10 mg PO DAILY #30 tab Discharge Medication List Escitalopram [Lexapro] 20 mg PO DAILY 11/21/15 [History] metFORMIN HCL [Glucophage] 1,000 mg PO DAILY 02/20/18 [History] Spironolactone [Aldactone] 25 mg PO DAILY #30 tab 02/21/18 [Rx] Olmesartan Medoxomil 20 mg PO DAILY 04/04/18 [History] Atorvastatin Calcium [Lipitor] 80 mg PO DAILY 09/18/18 [History] carvediloL [Coreg] 6.25 mg PO AC-BID 09/18/18 [History] Ammonium Lactate Cream [Lac-Hydrin 12% Cream] 1 applic TOPICAL DAILY PRN 02/21/21 [History] Doxylamine Succinate [Unisom] 50 mg PO HS 02/21/21 [History] Imiquimod [Aldara] 1 packet TOPICAL MOWEFR 02/21/21 [History] Nitroglycerin Sl Tabs [Nitrostat] 0.4 mg SL Q5M PRN 02/21/21 [History] metFORMIN HCL 500 mg PO HS 02/21/21 [History] Pantoprazole Sodium [Protonix] 40 mg PO BID #60 tablet. 02/26/21 [Rx] Follow up Appointment(s)/Referral(s): Liv Dela Cruz MD [STAFF PHYSICIAN] - 2 Weeks Alex Archer DO [Primary Care Provider] - 03/02/21 10:50 am (You have an appointment with Milla ACEVEDO) Ambulatory/Diagnostic Orders: Complete Blood Count w/diff [LAB.AMB] Time Frame: 3 Days, Location: None Selected Patient Instructions/Handouts: Gastrointestinal Bleeding (DC) Activity/Diet/Wound Care/Special Instructions: Hold ASA, re-sotero. at F/U at Dr. Archer Office in 3 days. Discharge Disposition: HOME SELF-CARE
== END 2021-02-27 10:07 | disposition home or self-care (01) | DRG 920 ==
LOC: EC 06:48 → 2SICU 08:37
PROVIDERS: ADMIT Family Medicine; ATTEND Family Medicine
PROC: 30233N1 Transfusion of Nonautologous Red Blood Cells into Peripheral Vein, Percutaneous Approach (ICD-10-PCS; 2021-02-21)
PROC: 0DJD8ZZ Inspection of Lower Intestinal Tract, Via Natural or Artificial Opening Endoscopic (ICD-10-PCS; principal; 2021-02-24 10:00)
DX: K91.840 Postprocedural hemorrhage of a digestive system organ or structure following a digestive system procedure (principal); D62 Acute posthemorrhagic anemia; E87.2 Acidosis; Y83.8 Other surgical procedures as the cause of abnormal reaction of the patient, or of later complication, without mention of misadventure at the time of the procedure; Z86.010 Personal history of colon polyps; D72.829 Elevated white blood cell count, unspecified; E11.9 Type 2 diabetes mellitus without complications; E66.9 Obesity, unspecified; E78.5 Hyperlipidemia, unspecified; I11.0 Hypertensive heart disease with heart failure; I25.10 Atherosclerotic heart disease of native coronary artery without angina pectoris; I25.2 Old myocardial infarction; I25.5 Ischemic cardiomyopathy; I44.0 Atrioventricular block, first degree; I44.4 Left anterior fascicular block; I50.9 Heart failure, unspecified; K57.30 Diverticulosis of large intestine without perforation or abscess without bleeding; Z68.34 Body mass index [BMI] 34.0-34.9, adult; Z79.02 Long term (current) use of antithrombotics/antiplatelets; Z79.4 Long term (current) use of insulin; Z79.82 Long term (current) use of aspirin; Z79.899 Other long term (current) drug therapy; Z87.19 Personal history of other diseases of the digestive system; Z87.891 Personal history of nicotine dependence; Z95.0 Presence of cardiac pacemaker; Z95.5 Presence of coronary angioplasty implant and graft; Z86.2 Personal history of diseases of the blood and blood-forming organs and certain disorders involving the immune mechanism; Z82.0 Family history of epilepsy and other diseases of the nervous system; Z82.49 Family history of ischemic heart disease and other diseases of the circulatory system
CPT/HCPCS: 36415; 45378; 71045; 74018; 80048; 80053; 82272; 83690; 83735; 84484; 85025; 85027; 85610; 85730; 86850; 86900; 86901; 86920; 93005; 93306; 96361; 96374; 96375; 99291

== ENCOUNTER → 2022-06-15 | Outpatient (CLI) | payer MEDICARE ==
--- NOTE | 2022-06-15 10:42 | MR ---
EXAMINATION TYPE: MR foot RT wo con DATE OF EXAM: 06/15/2022 COMPARISON: None HISTORY: Osteomyelitis, Pain near great toe, Patient states no metal in foot post surgery Standard multiplanar, multisequence MRI departmental protocol Multiplanar, multisequence images of the right foot were acquired without contrast. Diffusion weighte d imaging was performed. FINDINGS: Artifact is seen near the plantar surface of the foot which could be related to metallic artifact cor relate clinically. There is diffuse soft tissue edema and thickening of the epidermis overlying the distal margin of the first digit. There is subtle signal alteration involving the tuft distal phalanx first digit compati ble with osteomyelitis. Hypertrophic arthropathy is seen at the tarsometatarsal joint. There is severe hypertrophic arthropat hy with hallux valgus deformity of the first MTP. Cystic geodes involving the first metatarsal. Evaluation of the remaining DIP joints and distal phalanges limited. No evidence of abscess formation. Ankle mortise is maintained. Ligamentous structures intact. Atrophic change of the visualized muscula ture noted. IMPRESSION: Diffuse subcutaneous edema skin thickening overlying the distal margin of the first digit compatible with cellulitis. Findings are also compatible with early osteomyelitis tuft distal phalanx first bradleyi t.
[2022-06-15 14:24] LABS: Basophils # (A) 0.11 X 10*3/uL (0.00-0.10); Basophils % (A) 1.1 %; Eosinophils # (A) 0.61 X 10*3/uL (0.04-0.35); Eosinophils % (A) 6.3 %; HCT 47.1 % (39.6-50.0); HGB 15.3 g/dL (13.0-17.0); Immature Grans, Automated 0.6 %; Lymphocytes # (A) 1.75 X 10*3/uL (0.90-5.00); MCH 30.5 pg (27.0-32.0); MCHC 32.5 g/dL (32.0-37.0); Mean Platelet Volume 10.5 fL (9.5-12.2); Monocytes # (A) 0.88 X 10*3/uL (0.20-1.00); Monocytes % (A) 9.1 %; NRBC Per 100 WBC 0 /100 WBCS (0.0-0.0); Neutrophils # (A) 6.29 X 10*3/uL (1.80-7.70); Neutrophils % (A) 64.9 %; Platelet Count 268 X 10*3/uL (140-440); RBC 5.01 X 10*6/uL (4.40-5.60); RDW 13.4 % (11.5-14.5)
== END | disposition home or self-care (01) ==
LOC: RADMRIMAIN 08:41
PROVIDERS: ATTEND Podiatrist Foot & Ankle Surgery
DX: M86.9 Osteomyelitis, unspecified (principal); R60.0 Localized edema; L03.115 Cellulitis of right lower limb
CPT/HCPCS: 85025

== ENCOUNTER → 2022-07-08 | Outpatient (CLI) | payer MEDICARE ==
--- NOTE | 2022-07-08 09:27 | XR ---
EXAMINATION TYPE: XR foot complete RT DATE OF EXAM: 07/08/2022 COMPARISON: NONE HISTORY: Total TECHNIQUE: Three views are submitted. FINDINGS: The osseous structures are intact. There is no acute fracture or dislocation. Severe hypertrophic arthropathy first MTP with hallux valgus deformity. There is a moderate-sized plantar calcaneal spur. There is a linear metallic density in the soft tissues which could represent foreign body. A pes joy nus deformity noted. IMPRESSION: 1. Severe hypertrophic arthropathy with hallux valgus deformity first digit but no destructive change s. 2. There is a linear metallic tiny density along the plantar surface of the foot suspicious for forei gn body.
[2022-07-08 15:05] LABS: Basophils # (A) 0.09 X 10*3/uL (0.00-0.10); Basophils % (A) 0.9 %; Eosinophils # (A) 0.49 X 10*3/uL (0.04-0.35); Eosinophils % (A) 5.1 %; HCT 46.9 % (39.6-50.0); HGB 15.8 g/dL (13.0-17.0); Immature Grans, Automated 1.1 %; Lymphocytes % (A) 19.8 %; MCH 30.6 pg (27.0-32.0); MCHC 33.7 g/dL (32.0-37.0); MCV 90.7 fL (80.0-97.0); Mean Platelet Volume 9.8 fL (9.5-12.2); Monocytes # (A) 1.02 X 10*3/uL (0.20-1.00); Monocytes % (A) 10.6 %; NRBC Per 100 WBC 0 /100 WBCS (0.0-0.0); Neutrophils # (A) 5.97 X 10*3/uL (1.80-7.70); Neutrophils % (A) 62.5 %; Platelet Count 329 X 10*3/uL (140-440); RBC 5.17 X 10*6/uL (4.40-5.60); RDW 13.4 % (11.5-14.5); WBC 9.58 X 10*3/uL (4.50-10.00)
[2022-07-08 17:06] LABS: Erythrocyte Sedimentation Rate 19 mm/Hr (0-20)
[2022-07-08 17:30] LABS: African American GFR (CKD) 65.8 (60.0-200.0); Albumin 4.3 g/dL (3.8-4.9); Albumin/Globulin Ratio 1.85 (1.60-3.17); Anion Gap 12.3 mmol/L (10.00-18.00); BUN/Creat Ratio 15.52 Ratio (12.00-20.00); Blood Urea Nitrogen 19.4 mg/dL (9.0-27.0); C Reactive Protein 0.5 mg/dL (0.00-0.80); Calcium 8.7 mg/dL (8.7-10.3); Carbon Dioxide 21.9 mmol/L (20.0-27.5); Globulin 2.3 g/dL (1.6-3.3); Non-African American GFR(CKD) 56.8 (60.0-200.0); Potassium 4.9 mmol/L (3.5-5.5); Total Bilirubin 0.5 mg/dL (0.30-1.20); Total Protein 6.7 g/dL (6.2-8.2)
== END | disposition home or self-care (01) ==
LOC: RADXRMAIN 06:32
PROVIDERS: ATTEND Internal Medicine Infectious Disease
DX: M19.071 Primary osteoarthritis, right ankle and foot (principal); M20.11 Hallux valgus (acquired), right foot
CPT/HCPCS: 80053; 85025; 85652; 86140

== ENCOUNTER → 2022-07-23 | Outpatient (CLI) | payer MEDICARE ==
--- NOTE | 2022-07-24 08:35 | MR ---
EXAMINATION TYPE: MR lumbar spine wo con DATE OF EXAM: 07/23/2022 7:34 AM COMPARISON: None. CLINICAL INDICATION:Male, 72 years old with history of [id number]; TECHNIQUE: Multi planar, multi sequence imaging was performed utilizing: T1-weighted, T2-weighted, a nd turbo inversion recovery imaging of the lumbar spine. IV Contrast: None. FINDINGS: Alignment: The lumbar vertebral bodies have preserved heights. Grade 1 anterior listhesis of L4 and L 5. Cord: The conus medullaris and the distal spinal cord appear unremarkable with regards to their signa l intensity and morphology. Bones/Discs: Bone signal is within normal limits. Multilevel degenerative disc disease is noted and most pronounced at the L4-L5. L1-L2: Disc bulge and facet joint arthropathy result in mild spinal canal and moderate bilateral neur al foraminal stenosis. L2-L3: Disc bulge and facet joint arthropathy result in mild to moderate spinal canal and moderate to severe bilateral neural foraminal stenosis. L3-L4: Disc bulge and facet joint arthropathy result in moderate spinal canal and severe bilateral ne ural foraminal stenosis. L4-L5: Disc bulge and facet joint arthropathy result in moderate spinal canal and moderate right and severe left neural foraminal stenosis. L5-S1: Increased T2 and inversion recovery signal within this disc. No evidence of significant spinal canal stenosis. Facet joint arthropathy moderate bilateral neural foraminal stenosis. Other findings: None. IMPRESSION: L3-L4 and L4-L5 moderate spinal canal stenosis with severe bilateral L3-L4 and moderate right and sev ere left L4-L5 neural foraminal stenosis.
== END | disposition home or self-care (01) ==
LOC: RADMRIMAIN 06:22
PROVIDERS: ATTEND Nurse Practitioner Family
DX: M48.061 Spinal stenosis, lumbar region without neurogenic claudication (principal); M99.73 Connective tissue and disc stenosis of intervertebral foramina of lumbar region; M47.26 Other spondylosis with radiculopathy, lumbar region
CPT/HCPCS: 72148